=== PATIENT | female | born 1935 | race Caucasian/White ===

== ENCOUNTER 2017-04-12 10:30 | Inpatient (IN) | payer MEDICARE, OTHER, MEDICAID ==
[2017-04-23] MEDS ORDERED: Morphine 2 MG/ML Syringe IVPUSH PRN (06:42)
[2017-04-23] MEDS ORDERED: Naloxone 0.4 MG/ML SDV IVPUSH PRN (06:42)
[2017-04-23] MEDS ORDERED: Ondansetron 4 MG/2 ML SDV IVPUSH PRN ×2 (06:42→10:46)
[2017-04-23] MEDS ORDERED: Bisacodyl 5 MG Tab PO PRN (06:42)
[2017-04-23] MEDS ORDERED: Sennosides 8.6 MG Tab PO PRN (06:42)
[2017-04-23] MEDS ORDERED: Vancomycin 1 GM SDV ONE (06:45)
[2017-04-23] MEDS ORDERED: Lactated Ringers 1,000 ML IV SCH (07:00)
[2017-04-23] MEDS ORDERED: Sodium Chloride 0.9% 10 ML Syringe FLUSH PRN (07:00)
[2017-04-23] MEDS ORDERED: Lidocaine 1%/Sod Bicarbonate in NS 8.4% 1 ML Syringe IDERM PRN (07:00)
--- NOTE | 2017-04-23 07:10 | PCM.PREANE ---
Preanesthetic Assessment - Procedure Proposed Procedure: right reverse total shoulder arthroplasty - Anesthesia/Transfusion/Family Hx Anesthesia History: Prior Anesthesia Without Reaction Type of Anesthesia Reaction: Excessive Nausea/Vomiting Family History of Anesthesia Reaction: No Transfusion History: Prior Transfusion Without Reaction Intubation History: Unknown Additional History: Rheumatoid arthritis - Review of Systems General: No Symptoms Pulmonary: No Symptoms Cardiovascular: Other (pacemaker, htn, HLD, carotid stenosis with CEA to right side in 2016) Gastrointestinal: Other (occ GERD diet dependernt ) Neurological: Numbness (occ left arm from prev stroke ), Weakness (left sided from hx of stroke ) Other: Reports: Easy Bruising, Thyroid Problems - Physical Assessment NPO Status Date: 04/22/17 NPO Status Time: 18:30 Pulse: 59 O2 Sat by Pulse Oximetry: 95 Respiratory Rate: 16 Blood Pressure: 178/61 Temperature: 36.6 C Height: 1.55 m Weight: 87.543 kg ASA Class: 2 Mental Status: Alert & Oriented x3 Airway Class: Mallampati = 1 Dentition: Reports: Partial (bottom ), Missing Tooth/Teeth (multiple missing ) Thyro-Mental Finger Breadths: 3 Mouth Opening Finger Breadths: 3 ROM/Head Extension: Full Lungs: Clear to Auscultation, Normal Respiratory Effort Cardiovascular: Regular Rate, Regular Rhythm - Lab Values: Laboratory Last Values MRSA (PCR) Negative 03/28/17 14:35 - Allergies Allergies/Adverse Reactions: Allergies Allergy/AdvReac Type Severity Reaction Status Date / Time No Known Allergies Allergy Verified 04/20/17 12:45 - Blood Blood Available: No Product(s) Available: None - Anesthesia Plan Pre-Op Medication Ordered: None - Acknowledgements Anesthesia Type Planned: General Anesthesia, Regional Block (right interscalene ) Pt an Appropriate Candidate for the Planned Anesthesia: Yes Alternatives and Risks of Anesthesia Discussed w Pt/Guardian: Yes Pt/Guardian Understands and Agrees with Anesthesia Plan: Yes PreAnesthesia Questionnaire HEENT History: Reports: Glaucoma, Macular Degeneration Other HEENT History: Ringing to ears frequently, sore throat, lower partial, wears glasses, impacted cerumen Cardiovascular History: Reports: Blood Clots/VTE/DVT, CAD, High Cholesterol, Hypertension, Pacemaker, Other (See Below) Respiratory History: Reports: Other (See Below) Other Respiratory History: cough, bronchitis, pharyngitis, pleural fluid removal Gastrointestinal History: Reports: GERD, Other (See Below) Other Gastrointestinal History: Barrettes esophagus, colon surgery Genitourinary History: Reports: Chronic Renal Insuffiency [employer]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: Musculoskeletal History: Reports: Arthritis Neurological History: Reports: CVA Psychiatric History: Reports: None Endocrine/Metabolic History: Reports: Hypothyroidism Hematologic History: Reports: None Immunologic History: Reports: None Oncologic (Cancer) History: Reports: Colon Dermatologic History: Reports: Other (See Below) Other Dermatologic History: candidiasis, seborrheic keratosis - Past Surgical History Head Surgeries/Procedures: Reports: None HEENT Surgical History: Reports: Cataract Surgery Cardiovascular Surgical History: Reports: Pacer Respiratory Surgical History: Reports: None GI Surgical History: Reports: Colonoscopy Female Surgical History: Reports: Tubal Ligation Male Surgical History: Reports: None Endocrine Surgical History: Reports: None Neurological Surgical History: Reports: Other (See Below) Other Neurological Surgeries/Procedures: low back surgery Musculoskeletal Surgical History: Reports: Other (See Below), Shoulder Surgery Other Musculoskeletal Surgeries/Procedures:: L rotator cuff surgery, Back surgery to repair ruptured discs Oncologic Surgical History: Reports: None - SUBSTANCE USE Smoking Status *Q: Never Smoker Tobacco Use Within Last Twelve Months: No Second Hand Smoke Exposure: No Recreational Drug Use History: No - HOME MEDS Home Medications: Home Meds Cholecalciferol (Vitamin D3) [Vitamin D3] 1,000 unit PO DAILY 02/03/16 [History] Cyanocobalamin (Vitamin B-12) [B-12] 1,000 mcg PO DAILY 02/03/16 [History] Latanoprost [Xalatan 0.005% Ophth Soln] 1 drop EYEBOTH BEDTIME 02/03/16 [History ] Losartan [Cozaar] 50 mg PO BID 02/03/16 [History] Methotrexate 7 tab PO WEEKLY 02/03/16 [History] Metoprolol Succinate 50 mg PO TID 02/03/16 [History] Omeprazole 20 mg PO DAILY 02/03/16 [History] Prednisone [IJD: Prednisone] 10 mg PO SADLER 02/03/16 [History] Simvastatin [Zocor] 40 mg PO BEDTIME 02/03/16 [History] sulfaSALAzine 1,000 mg PO BID 02/03/16 [History] Aspirin 81 mg PO DAILY 04/20/17 [History] Calcium Carbonate/Vitamin D3 [Calcium 600-Vit D3 400 Tablet] 1 tab PO DAILY 04/08 [History] Fish Oil/DHA/EPA [Fish Oil 1,200 MG] 1,200 mg PO DAILY 04/20/17 [History] Folic Acid 3 mg PO DAILY 04/20/17 [History] Levothyroxine [Synthroid] 88 mcg PO DAILY 04/20/17 [History] Lutein/Minerals/Vit A,C & E [Ocuvite] 1 tab PO DAILY 04/20/17 [History] Multivitamin [Daily Multiple Vitamin] 1 tab PO DAILY 04/20/17 [History] Nystatin 1 dose .ROUTE TID PRN 04/20/17 [History] - CURRENT (IN HOUSE) MEDS Current Meds: Current Medications Hydrocodone Bitart/Acetaminophen (Buford 325-5 Mg) 1 - 2 tab PO Q4H PRN PRN Reason: Pain Bisacodyl (Dulcolax) 5 mg PO DAILY PRN PRN Reason: Constipation Docusate Sodium (Colace) 100 mg PO BID LEEANN Famotidine (Pepcid) 20 mg PO Q12H LEEANN Lactated Ringer's (Ringers, Lactated) 1,000 mls @ 125 mls/hr IV ASDIRECTED LEEANN Cefazolin Sodium/Dextrose 2 gm (/ Premix) 50 mls @ 100 mls/hr IV Q8H [facility] Stop: 04/23/17 23:14 Lidocaine/Sodium Bicarbonate (Buffered Lidocaine 1% In Ns 8.4%) 0.25 ml IDERM ONETIME PRN PRN Reason: Prior to IV Start Morphine Sulfate (Morphine) 2 mg IVPUSH Q2H PRN PRN Reason: Breakthrough Pain Naloxone HCl (Narcan) 0.1 mg IVPUSH Q5M PRN PRN Reason: Oversedation Ondansetron HCl (Zofran) 4 mg IVPUSH Q6H PRN PRN Reason: Nausea/Vomiting Senna (Senna) 8.6 mg PO BID PRN PRN Reason: Constipation Sodium Chloride (Saline Flush) 10 ml FLUSH ASDIRECTED PRN PRN Reason: Keep Vein Open Discontinued Medications Bupivacaine HCl (Marcaine 0.25%) Confirm Administered Dose 30 ml .ROUTE .STK- MED ONE Stop: 04/23/17 06:46 Iodine (Iodine 2% Mild Tincture) Confirm Administered Dose 30 ml .ROUTE .STK- MED ONE Stop: 04/23/17 06:46 Tranexamic Acid (Cyklokapron) Confirm Administered Dose 1,000 mg .ROUTE .STK- MED ONE Stop: 04/23/17 06:46 Vancomycin HCl (Vancomycin) Confirm Administered Dose 1 gm .ROUTE .STK-MED ONE Stop: 04/23/17 06:46
[2017-04-23] MEDS ORDERED: Ropivacaine 0.5% 5 MG/ML 30 ML SDV ONE (07:13)
[2017-04-23] MEDS ORDERED: EPINEPHrine 1 MG/ML SDV ONE (07:13)
[2017-04-23] MEDS ORDERED: fentaNYL 100 MCG/2 ML SDV ONE ×4 (07:43→12:51)
[2017-04-23] MEDS ORDERED: Lidocaine 1% 2 ML ONE (07:43)
[2017-04-23] MEDS ORDERED: Ondansetron 4 MG/2 ML SDV ONE (07:45)
[2017-04-23] MEDS ORDERED: Propofol 200 MG/20 ML SDV ONE (07:45)
[2017-04-23] MEDS ORDERED: Dexamethasone 4 MG/ML SDV ONE (07:46)
[2017-04-23] MEDS ORDERED: ceFAZolin 1 GM Vial ONE ×2 (09:17→10:10)
[2017-04-23] MEDS: Iodine/Sodium Iodide 2% Tincture 30 ML Bottle ONE ×2 (10:02→10:04)
[2017-04-23] MEDS: ceFAZolin 1 GM Vial ONE ×2 (10:04→10:05)
[2017-04-23] MEDS: Bupivacaine 0.25% 30 ML SDV ONE ×2 (10:05→10:07)
[2017-04-23] MEDS ORDERED: ePHEDrine 50 MG/ML SDV ONE (10:12)
[2017-04-23] MEDS ORDERED: diphenhydrAMINE 50 MG/ML SDV IVPUSH PRN (10:46)
[2017-04-23] MEDS ORDERED: fentaNYL 100 MCG/2 ML SDV IVPUSH PRN (10:46)
[2017-04-23] MEDS ORDERED: Meperidine PF 50 MG/ML Syringe IVPUSH PRN (10:46)
--- NOTE | 2017-04-23 10:46 | PCM.POSTAN ---
POST ANESTHESIA ASSESSMENT - MENTAL STATUS Mental Status: Alert, Oriented - VITAL SIGNS Pulse Rate: 67 SaO2: 93 Resp Rate: 15 Blood Pressure: 155/68 Temperature: 35.8 C - RESPIRATORY Respiratory Status: Respiratory Rate WNL, Airway Patent, O2 Saturation Stable, Supplemental Oxygen - CARDIOVASCULAR CV Status: Pulse Rate WNL, Blood Pressure Stable - GASTROINTESTINAL GI Status: No Symptoms - PAIN Pain Score: 0 - POST OP HYDRATION Hydration Status: Adequate & Stable
--- NOTE | 2017-04-23 11:21 | CR ---
Right shoulder: Three views of the right shoulder obtained utilizing C-arm device in the operating room. Study shows placement of a reverse shoulder prosthesis. Fluoroscopy time given as 2.9 seconds. Impression: 1. Operative study showing placement of right shoulder prosthesis. Diagnostic code #2
--- NOTE | 2017-04-23 11:47 | CR ---
Right shoulder: Supine portable view of the right shoulder was obtained. Comparison: Previous right shoulder exam of 05/24/16. Right shoulder prosthesis is seen. Components are aligned. Underlying bony structures are osteopenic but appear intact. Impression: 1. Satisfactory postoperative radiographic appearance of recently placed right shoulder prosthesis. Diagnostic code #2
[2017-04-23] MEDS ORDERED: NYSTATIN PRN (11:59)
--- NOTE | 2017-04-23 12:47 | PCM.CONS ---
H&P History of Present Illness - General Date of Service: 04/23/17 Admit Problem/Dx: Admission Diagnosis/Problem Admission Diagnosis/Problem Osteoarthritis of shoulder Source of Information: Patient, Provider, RN, RN Notes Reviewed, Other ( surgical notes ) - History of Present Illness Initial Comments - Free Text/Narative: Rhiannon Fuentes is a 81 yo female patient of Dr. Morataya who is post-operative day 0 of right reverse total shoulder. Hospital medicine was consulted for post- operative medical care. At this time she is resting comfortably in bed. Pain is controlled. She denies any chest pain, shortness of breath, palpitations, nausea, or vomiting. She carries a history of: Macular degeneration, glaucoma, blood clots, CAD, HLD, HTN, pacemaker, GERD, Brooks's esophagus, CK 80 stage III, arthritis, CVA, hypothyroidism, colon cancer. She was never a smoker. She is a full code. Her primary care provider is Karen Cortez PA-C at [facility]. Right Shoulder Pain Score (Numeric/FACES): 4 - Related Data Allergies/Adverse Reactions: Allergies Allergy/AdvReac Type Severity Reaction Status Date / Time No Known Allergies Allergy Verified 04/20/17 12:45 Home Medications: Home Meds Cholecalciferol (Vitamin D3) [Vitamin D3] 1,000 unit PO DAILY 02/03/16 [History] Cyanocobalamin (Vitamin B-12) [B-12] 1,000 mcg PO DAILY 02/03/16 [History] Latanoprost [Xalatan 0.005% Ophth Soln] 1 drop EYEBOTH BEDTIME 02/03/16 [History ] Losartan [Cozaar] 50 mg PO BID 02/03/16 [History] Methotrexate 7 tab PO WEEKLY 02/03/16 [History] Metoprolol Succinate 50 mg PO TID 02/03/16 [History] Omeprazole 20 mg PO DAILY 02/03/16 [History] Prednisone [IJD: Prednisone] 10 mg PO SADLER 02/03/16 [History] Simvastatin [Zocor] 40 mg PO BEDTIME 02/03/16 [History] sulfaSALAzine 1,000 mg PO BID 02/03/16 [History] Aspirin 81 mg PO DAILY 04/20/17 [History] Calcium Carbonate/Vitamin D3 [Calcium 600-Vit D3 400 Tablet] 1 tab PO DAILY 04/08 [History] Fish Oil/DHA/EPA [Fish Oil 1,200 MG] 1,200 mg PO DAILY 04/20/17 [History] Folic Acid 3 mg PO DAILY 04/20/17 [History] Levothyroxine [Synthroid] 88 mcg PO DAILY 04/20/17 [History] Lutein/Minerals/Vit A,C & E [Ocuvite] 1 tab PO DAILY 04/20/17 [History] Multivitamin [Daily Multiple Vitamin] 1 tab PO DAILY 04/20/17 [History] Nystatin 1 dose .ROUTE TID PRN 04/20/17 [History] Past Medical History HEENT History: Reports: Glaucoma, Macular Degeneration Other HEENT History: Ringing to ears frequently, sore throat, lower partial, wears glasses, impacted cerumen Cardiovascular History: Reports: Blood Clots/VTE/DVT, CAD, High Cholesterol, Hypertension, Pacemaker, Other (See Below) Respiratory History: Reports: Other (See Below) Other Respiratory History: cough, bronchitis, pharyngitis, pleural fluid removal Gastrointestinal History: Reports: GERD, Other (See Below) Other Gastrointestinal History: Barrettes esophagus, colon surgery Genitourinary History: Reports: Chronic Renal Insuffiency 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: Musculoskeletal History: Reports: Arthritis Neurological History: Reports: CVA Psychiatric History: Reports: None Endocrine/Metabolic History: Reports: Hypothyroidism Hematologic History: Reports: None Immunologic History: Reports: None Oncologic (Cancer) History: Reports: Colon Dermatologic History: Reports: Other (See Below) Other Dermatologic History: candidiasis, seborrheic keratosis - Past Surgical History Head Surgeries/Procedures: Reports: None HEENT Surgical History: Reports: Cataract Surgery Cardiovascular Surgical History: Reports: Pacer Respiratory Surgical History: Reports: None GI Surgical History: Reports: Colonoscopy Female Surgical History: Reports: Tubal Ligation Male Surgical History: Reports: None Endocrine Surgical History: Reports: None Neurological Surgical History: Reports: Other (See Below) Other Neurological Surgeries/Procedures: low back surgery Musculoskeletal Surgical History: Reports: Other (See Below), Shoulder Surgery Other Musculoskeletal Surgeries/Procedures:: L rotator cuff surgery, Back surgery to repair ruptured discs Oncologic Surgical History: Reports: None Social & Family History - Family History Family Medical History: Noncontributory - Tobacco Use Smoking Status *Q: Never Smoker Second Hand Smoke Exposure: No - Caffeine Use Caffeine Use: Reports: Coffee - Recreational Drug Use Recreational Drug Use: No H&P Review of Systems - Review of Systems: Review Of Systems: See Below General: Reports: No Symptoms HEENT: Reports: No Symptoms Pulmonary: Reports: No Symptoms Cardiovascular: Reports: No Symptoms Gastrointestinal: Reports: No Symptoms Genitourinary: Reports: No Symptoms Musculoskeletal: Reports: Joint Pain Skin: Reports: No Symptoms Psychiatric: Reports: No Symptoms Neurological: Reports: No Symptoms Hematologic/Lymphatic: Reports: No Symptoms Immunologic: Reports: No Symptoms Exam - Exam Exam: See Below - Vital Signs Vital Signs: Last Vital Signs Temp 97.4 F 04/23/17 11:35 Pulse 63 04/23/17 11:20 Resp 12 04/23/17 11:35 BP 163/64 H 04/23/17 11:35 Pulse Ox 95 04/23/17 11:35 Weight: 192 lb - Exam Quality Assessment: Supplemental Oxygen, Urinary Catheter, DVT Prophylaxis General: Alert, Oriented, Cooperative. No: Mild Distress HEENT: PERRLA, Hearing Intact, Mucosa Moist & Mercer, Nares Patent, Normal Nasal Septum, Posterior Pharynx Clear, Conjunctiva Clear, EOMI, EACs Clear, TMs Clear Neck: Supple, Trachea Midline Lungs: Clear to Auscultation, Normal Respiratory Effort Cardiovascular: Regular Rate, Regular Rhythm GI/Abdominal Exam: Normal Bowel Sounds, Soft, Non-Tender, No Organomegaly, No Distention, No Abnormal Bruit, No Mass, Pelvis Stable (Female) Exam: Deferred Rectal (Female) Exam: Deferred Back Exam: Normal Inspection Extremities: No Pedal Edema, Normal Capillary Refill, Arm Pain (shoulder), Limited Range of Motion, Other (Shoulder immobilizer in place on right arm. FRANTZ bandage in place. Bandage is dry and intact. Cooling pack in place. ) Peripheral Pulses: 2+: Radial (L), Posterior Tibial (L), Posterior Tibial (R), Dorsalis Pedis (L), Dorsalis Pedis (R) Skin: Warm, Dry, Intact Neurological: Cranial Nerves Intact (grossly) Neuro Extensive - Mental Status: Alert, Oriented x3, Normal Mood/Affect, Normal Cognition Psychiatric: Alert, Normal Affect, Normal Mood Consult PN Assessment/Plan POD#: 0 Procedures: Procedures ASSAY OF NATRIURETIC PEPTIDE (02/03/16) ASSAY OF PREALBUMIN (03/30/17) ASSAY THYROID STIM HORMONE (11/02/16) C-REACTIVE PROTEIN (05/25/16) COMPLETE CBC AUTOMATED (02/03/16) COMPLETE CBC W/AUTO DIFF WBC (03/24/17) COMPREHEN METABOLIC PANEL (03/24/17) CULTURE SCREEN ONLY (03/24/16) DXA BONE DENSITY AXIAL (04/03/17) ELECTROCARDIOGRAM TRACING (02/03/16) EMERGENCY DEPT VISIT (02/03/16) EMERGENCY DEPT VISIT (01/17/14) EXTREMITY STUDY (02/03/16) GAIT TRAINING THERAPY (02/03/16) LIPID PANEL (03/24/17) MANUAL THERAPY 1/> REGIONS (07/12/16) METABOLIC PANEL TOTAL CA (02/03/16) OT EVALUATION (02/03/16) PROTHROMBIN TIME (03/30/17) PT EVAL MOD COMPLEX 30 MIN (06/14/16) PT EVALUATION (02/03/16) ROUTINE VENIPUNCTURE (03/30/17) STREP A AG IA (03/24/16) THER/PROPH/DIAG IV INF INIT (02/03/16) THERAPEUTIC EXERCISES (08/02/16) THROMBOPLASTIN TIME PARTIAL (02/03/16) TISSUE EXAM BY PATHOLOGIST (01/07/15) ULTRASOUND THERAPY (07/12/16) URINALYSIS AUTO W/SCOPE (02/03/16) URINE BACTERIA CULTURE (01/17/14) X-RAY EXAM CHEST 2 VIEWS (03/30/17) X-RAY EXAM OF SHOULDER (05/24/16) (1) S/p reverse total shoulder arthroplasty SNOMED Code(s): 171131421 Code(s): Z96.619 - PRESENCE OF UNSPECIFIED ARTIFICIAL SHOULDER JOINT Priority: High Current Visit: Yes Qualifiers: Laterality: right Qualified Code(s): Z96.611 - Presence of right artificial shoulder joint (2) Osteoarthritis SNOMED Code(s): 333247380 Code(s): M19.90 - UNSPECIFIED OSTEOARTHRITIS, UNSPECIFIED SITE Priority: High Current Visit: Yes Qualifiers: Osteoarthritis location: shoulder Osteoarthritis type: primary Laterality : right Qualified Code(s): M19.011 - Primary osteoarthritis, right shoulder (3) Cardiac pacemaker SNOMED Code(s): 134581309 Code(s): Z95.0 - PRESENCE OF CARDIAC PACEMAKER Priority: Medium Current Visit: Yes (4) HLD (hyperlipidemia) SNOMED Code(s): 59257513 Code(s): E78.5 - HYPERLIPIDEMIA, UNSPECIFIED Priority: Low Current Visit : No Qualifiers: Hyperlipidemia type: unspecified Qualified Code(s): E78.5 - Hyperlipidemia , unspecified (5) HTN (hypertension) SNOMED Code(s): 63857455 Code(s): I10 - ESSENTIAL (PRIMARY) HYPERTENSION Priority: Low Current Visit: No Qualifiers: Hypertension type: unspecified Qualified Code(s): I10 - Essential (primary ) hypertension (6) GERD (gastroesophageal reflux disease) SNOMED Code(s): 280053938 Code(s): K21.9 - GASTRO-ESOPHAGEAL REFLUX DISEASE WITHOUT ESOPHAGITIS Priority: Low Current Visit: No Qualifiers: Esophagitis presence: with esophagitis Qualified Code(s): K21.0 - Gastro- esophageal reflux disease with esophagitis (7) History of CVA (cerebrovascular accident) SNOMED Code(s): 944734233 Code(s): Z86.73 - PRSNL HX OF TIA (TIA), AND CEREB INFRC W/O RESID DEFICITS Priority: Low Current Visit: No (8) History of colon cancer SNOMED Code(s): 189312738 Code(s): Z85.038 - PERSONAL HISTORY OF MALIGNANT NEOPLASM OF LARGE INTESTINE Priority: Low Current Visit: No (9) Hx of blood clots SNOMED Code(s): 372030280 Code(s): Z86.718 - PERSONAL HISTORY OF OTHER VENOUS THROMBOSIS AND EMBOLISM Priority: Low Current Visit: No (10) Carotid artery disease SNOMED Code(s): 589265244 Code(s): I77.9 - DISORDER OF ARTERIES AND ARTERIOLES, UNSPECIFIED Priority : Low Current Visit: No Qualifiers: Laterality: unspecified laterality Qualified Code(s): I77.9 - Disorder of arteries and arterioles, unspecified (11) Hypothyroidism SNOMED Code(s): 02979163 Code(s): E03.9 - HYPOTHYROIDISM, UNSPECIFIED Priority: Low Current Visit : No Qualifiers: Hypothyroidism type: unspecified Qualified Code(s): E03.9 - Hypothyroidism , unspecified Problem List Initiated/Reviewed/Updated: Yes Plan: I/P: Acute: S/P right reverse total shoulder arthroplasty - post-operative day 0 -DVT prophylaxis and pain management per primary care team -PT/OT -IS/RT -Monitor oxygen saturation -Titrate oxygen as needed -Vital signs stable -Monitor labs Osteoarthritis of right shoulder -Pain management per primary care team Chronic: Glaucoma Macular degeneration Hx/of blood clots/VTE/DVT in left leg CAD HLD HTN GERD Barrettes esophagitis CKD stage 3 CVA Hypothyroidism Plan: CM for discharge planning - plan to discharge to SNF for rehab stay GI prophylaxis Home medications as indicated Other orders as listed above Routine AM labs She is a full code. Her PCP is Karen Cortez PA-C at [facility] Thank you for allowing us to participate in the care of this patient!! Requesting Provider: Dr. Morataya Date Consult Requested: 04/23/17 Reason for Consult: Post-operative medical management Patient History Reviewed: Yes Admission H&P Reviewed: Yes Time Spent (in minutes): 25
--- NOTE | 2017-04-23 14:47 | PCM.SN ---
- Free Text/Narrative Note: Right Interscalene nerve block Date: 04/23/2017 Time Out: 0756 Start: 755 Stop: 0804 Surgical Procedure: Right Reverse Total Shoulder arthroplasty Diagnosis: Right shoulder osteoarthritis Current Procedure: Right interscalene block under US guidance for postoperative pain control requested by Dr. Morataya. Patient chart reviewed, risk/benefits discussed with patient, consent obtained. Patient positioned supine, monitors/alarms on, oxygen placed via nasal cannula at 2 LPM. IV sedation administered: Fentanyl 100mcg IV Right shoulder prepped with chloraprep x1. Sterile drapes placed. Under US guidance right subclavian artery visualized along with the right brachial plexus. Plexus followed cephalad up to C6 cricoid level, and area localized with 2mls of 1% lidocaine. 22gauge 2 inch stimiplex needle inserted under US and guided to brachial plexus with 0.44mV with stimulation of biceps noted. Stimulation abolished at 0.2mVs. 1ml of Normal Saline injected with loss of stimulation up to 0.7mA. Incremental injection of 5mls with negative aspiration prior to each injection of 0.5% ropivacaine with 1:200,000 epinephrine. Total volume=30mls. Patient tolerated procedure well. Refer to nurses notes for vital signs. Bulmaro Cardenas CRNA in room for supervision. Cas Lopez CRNA
[2017-04-23] MEDS: Metoprolol Succinate 50 MG Tab.ER PO SCH ×2 (16:35→22:04)
[2017-04-23] MEDS: ceFAZolin 2 GM in Premix Bag 1 BAG IV SCH (16:39)
[2017-04-23] MEDS ORDERED: Famotidine 20 MG Tab PO SCH (21:00)
[2017-04-23] MEDS: Losartan 25 MG Tab PO SCH (22:03)
[2017-04-23] MEDS: Docusate Sodium 100 MG Cap PO SCH (22:03)
[2017-04-23] MEDS: sulfaSALAzine 500 MG Tab PO SCH (22:04)
[2017-04-23] MEDS: Acetaminophen/HYDROcodone 325-5 MG Tab PO PRN (22:05)
[2017-04-23] MEDS: Simvastatin 40 MG Tab PO SCH (22:05)
[2017-04-23] MEDS: Latanoprost 0.005% Ophth Soln 2.5 ML Bottle EYEBOTH SCH (22:07)
[2017-04-24] MEDS: ceFAZolin 2 GM in Premix Bag 1 BAG IV SCH ×2 (01:47→09:49)
--- NOTE | 2017-04-24 06:39 | PCM.CONSN ---
- General Info Date of Service: 04/24/17 Admission Dx/Problem (Free Text): Admission Diagnosis/Problem Admission Diagnosis/Problem Osteoarthritis of shoulder Subjective Update: In to see Rhiannon. She is doing quite well. She is sitting in bed. PT/OT has been working with her. She did receive a shower today. Pain 4/10 No complaints or concerns. She has been urinating. Will be discharged in a few days to SNF for rehabilitation stay. Functional Status: Reports: Pain Controlled, Tolerating Diet, Ambulating, Urinating, Incentive Spirometry. Denies: New Symptoms - Review of Systems General: Reports: No Symptoms. Denies: Weakness HEENT: Reports: No Symptoms Pulmonary: Reports: No Symptoms. Denies: Shortness of Breath, Cough, Sputum, Wheezing Cardiovascular: Reports: No Symptoms. Denies: Chest Pain, Palpitations, Dyspnea on Exertion Gastrointestinal: Reports: No Symptoms. Denies: Abdominal Pain, Constipation, Diarrhea, Nausea, Vomiting Genitourinary: Reports: No Symptoms. Denies: Dysuria, Frequency, Burning, Pain Musculoskeletal: Reports: Shoulder Pain Skin: Reports: No Symptoms Neurological: Reports: No Symptoms Psychiatric: Reports: No Symptoms - Patient Data Vitals - Most Recent: Last Vital Signs Temp 99.0 F 04/24/17 02:47 Pulse 61 04/24/17 02:46 Resp 17 04/24/17 02:46 BP 127/34 L 04/24/17 02:47 Pulse Ox 90 L 04/24/17 02:46 Weight - Most Recent: 192 lb I&O - Last 24 Hours: Intake & Output 04/23/17 04/23/17 04/24/17 14:59 22:59 06:59 Intake Total 200 850 Output Total 350 Balance 200 500 Med Orders - Current: Current Medications Hydrocodone Bitart/Acetaminophen ([place] 325-5 Mg) 1 - 2 tab PO Q4H PRN PRN Reason: Pain Last Admin: 04/23/17 22:05 Dose: 2 tab Aspirin (Aspirin) 81 mg PO DAILY LEEANN Bisacodyl (Dulcolax) 5 mg PO DAILY PRN PRN Reason: Constipation Calcium Carbonate (Calcium Carbonate/Vitamin D 1500 Mg-200 Unit) 1 tab PO DAILY LEEANN Cholecalciferol (Vitamin D3) 1,000 units PO DAILY LEEANN Cyanocobalamin (Vitamin B12) 1,000 mcg PO DAILY LEEANN Docusate Sodium (Colace) 100 mg PO BID [facility] Last Admin: 04/23/17 22:03 Dose: 100 mg Enoxaparin Sodium (Lovenox) 40 mg SUBCUT DAILY [facility] Famotidine (Pepcid) 20 mg PO Q12H [facility] Last Admin: 04/23/17 22:04 Dose: 20 mg Folic Acid (Folic Acid) 3 mg PO DAILY [facility] Cefazolin Sodium/Dextrose 2 gm (/ Premix) 50 mls @ 100 mls/hr IV Q8H [facility] Stop: 04/24/17 09:59 Last Admin: 04/24/17 01:47 Dose: 100 mls/hr Latanoprost (Xalatan 0.005% Ophth Soln) 0 ml EYEBOTH BEDTIME [facility] Last Admin: 04/23/17 22:07 Dose: 1 drop Levothyroxine Sodium (Synthroid) 88 mcg PO ACBREAKFAST [facility] Losartan Potassium (Cozaar) 50 mg PO BID [facility] Last Admin: 04/23/17 22:03 Dose: 50 mg Metoprolol Succinate (Toprol Xl) 50 mg PO TID [facility] Last Admin: 04/23/17 22:04 Dose: 50 mg Morphine Sulfate (Morphine) 2 mg IVPUSH Q2H PRN PRN Reason: Breakthrough Pain Multivitamins (Thera) 1 each PO DAILY [facility] Ondansetron HCl (Zofran) 4 mg IVPUSH Q6H PRN PRN Reason: Nausea/Vomiting Senna (Senna) 8.6 mg PO BID PRN PRN Reason: Constipation Simvastatin (Zocor) 40 mg PO BEDTIME [facility] Last Admin: 04/23/17 22:05 Dose: 40 mg Sodium Chloride (Saline Flush) 10 ml FLUSH ASDIRECTED PRN PRN Reason: Keep Vein Open Sulfasalazine (Sulfasalazine) 1,000 mg PO BID [facility] Last Admin: 04/23/17 22:04 Dose: 1,000 mg Discontinued Medications Bupivacaine HCl (Marcaine 0.25%) Confirm Administered Dose 30 ml .ROUTE .STK- MED ONE Stop: 04/23/17 06:46 Last Admin: 04/23/17 10:05 Dose: 30 ml Cefazolin Sodium (Ancef) Confirm Administered Dose 2 gm .ROUTE .STK-MED ONE Stop: 04/23/17 09:18 Cefazolin Sodium (Ancef) Confirm Administered Dose 2 gm .ROUTE .STK-MED ONE Stop: 04/23/17 10:09 Last Admin: 04/23/17 10:04 Dose: 2 gm Cefazolin Sodium (Ancef) Confirm Administered Dose 2 gm .ROUTE .STK-MED ONE Stop: 04/23/17 10:11 Dexamethasone (Dexamethasone) Confirm Administered Dose 4 mg .ROUTE .ST-MED ONE Stop: 04/23/17 07:47 Diphenhydramine HCl (Benadryl) 25 mg IVPUSH Q6H PRN PRN Reason: Pruritis Stop: 04/23/17 16:00 Ephedrine Sulfate (Ephedrine Sulfate) Confirm Administered Dose 50 mg .ROUTE .ST-MED ONE Stop: 04/23/17 10:13 Epinephrine HCl (Adrenalin) Confirm Administered Dose 1 mg .ROUTE .ST-MED ONE Stop: 04/23/17 07:14 Fentanyl (Sublimaze) Confirm Administered Dose 100 mcg .ROUTE .ST-MED ONE Stop: 04/23/17 07:44 Fentanyl (Sublimaze) Confirm Administered Dose 100 mcg .ROUTE .ST-MED ONE Stop: 04/23/17 09:06 Fentanyl (Sublimaze) 50 mcg IVPUSH Q5M PRN PRN Reason: Pain Stop: 04/23/17 10:47 Fentanyl (Sublimaze) Confirm Administered Dose 100 mcg .ROUTE .ST-MED ONE Stop: 04/23/17 12:09 Fentanyl (Sublimaze) Confirm Administered Dose 100 mcg .ROUTE .ST-MED ONE Stop: 04/23/17 12:52 Lactated Ringer's (Ringers, Lactated) 1,000 mls @ 125 mls/hr IV ASDIRECTED LEEANN Lidocaine HCl (Xylocaine-Mpf 1%) Confirm Administered Dose 2 mls @ as directed .ROUTE .ST-MED ONE Stop: 04/23/17 07:44 Iodine (Iodine 2% Mild Tincture) Confirm Administered Dose 30 ml .ROUTE .STK- MED ONE Stop: 04/23/17 06:46 Last Admin: 04/23/17 10:02 Dose: 18 ml Lidocaine/Sodium Bicarbonate (Buffered Lidocaine 1% In Ns 8.4%) 0.25 ml IDERM ONETIME PRN PRN Reason: Prior to IV Start Meperidine HCl (Demerol) 12.5 mg IVPUSH ONETIME PRN PRN Reason: Shivering Stop: 04/23/17 14:00 Naloxone HCl (Narcan) 0.1 mg IVPUSH Q5M PRN PRN Reason: Oversedation Non-Formulary Medication (Nystatin) 1 dose .ROUTE TID PRN PRN Reason: asdirected Ondansetron HCl (Zofran) Confirm Administered Dose 4 mg .ROUTE .STK-MED ONE Stop: 04/23/17 07:46 Ondansetron HCl (Zofran) 4 mg IVPUSH ONETIME PRN PRN Reason: Nausea/Vomiting Stop: 04/23/17 16:00 Propofol (Diprivan 20 Ml) Confirm Administered Dose 200 mg .ROUTE .STK-MED ONE Stop: 04/23/17 07:46 Ropivacaine (Naropin 0.5%) Confirm Administered Dose 30 ml .ROUTE .STK-MED ONE Stop: 04/23/17 07:14 Tranexamic Acid (Cyklokapron) Confirm Administered Dose 1,000 mg .ROUTE .STK- MED ONE Stop: 04/23/17 06:46 Last Admin: 04/23/17 10:07 Dose: 1,000 mg Vancomycin HCl (Vancomycin) Confirm Administered Dose 1 gm .ROUTE .STK-MED ONE Stop: 04/23/17 06:46 Last Admin: 04/23/17 10:07 Dose: 1 gm - Exam Quality Assessment: Supplemental Oxygen, DVT Prophylaxis General: Alert, Oriented, Cooperative, No Acute Distress HEENT: Pupils Equal, Pupils Reactive, EOMI, Mucous Membr. Moist/[place] Neck: Supple, Trachea Midline, No JVD Lungs: Clear to Auscultation, Normal Respiratory Effort Cardiovascular: Regular Rate, Regular Rhythm GI/Abdominal Exam: Normal Bowel Sounds, Soft, Non-Tender, No Organomegaly, No Distention, No Abnormal Bruit, No Mass, Pelvis Stable (Female) Exam: Deferred Extremities: Normal Inspection, Normal Range of Motion, Non-Tender, No Pedal Edema, Normal Capillary Refill Peripheral Pulses: 1+: Posterior Tibial (L), Posterior Tibial (R), Dorsalis Pedis (L), Dorsalis Pedis (R), 2+: Radial (L) Skin: Warm, Dry, Intact Wound/Incisions: Dressing Dry and Intact, No Drainage Neurological: No New Focal Deficit Psy/Mental Status: Alert, Normal Affect, Normal Mood Consult PN Assessment/Plan POD#: 1 Procedures: Procedures ASSAY OF NATRIURETIC PEPTIDE (02/03/16) ASSAY OF PREALBUMIN (03/30/17) ASSAY THYROID STIM HORMONE (11/02/16) C-REACTIVE PROTEIN (05/25/16) COMPLETE CBC AUTOMATED (02/03/16) COMPLETE CBC W/AUTO DIFF WBC (03/24/17) COMPREHEN METABOLIC PANEL (03/24/17) CULTURE SCREEN ONLY (03/24/16) DXA BONE DENSITY AXIAL (04/03/17) ELECTROCARDIOGRAM TRACING (02/03/16) EMERGENCY DEPT VISIT (02/03/16) EMERGENCY DEPT VISIT (01/17/14) EXTREMITY STUDY (02/03/16) GAIT TRAINING THERAPY (02/03/16) LIPID PANEL (03/24/17) MANUAL THERAPY 1/> REGIONS (07/12/16) METABOLIC PANEL TOTAL CA (02/03/16) OT EVALUATION (02/03/16) PROTHROMBIN TIME (03/30/17) PT EVAL MOD COMPLEX 30 MIN (06/14/16) PT EVALUATION (02/03/16) ROUTINE VENIPUNCTURE (03/30/17) STREP A AG IA (03/24/16) THER/PROPH/DIAG IV INF INIT (02/03/16) THERAPEUTIC EXERCISES (08/02/16) THROMBOPLASTIN TIME PARTIAL (02/03/16) TISSUE EXAM BY PATHOLOGIST (01/07/15) ULTRASOUND THERAPY (07/12/16) URINALYSIS AUTO W/SCOPE (02/03/16) URINE BACTERIA CULTURE (01/17/14) X-RAY EXAM CHEST 2 VIEWS (03/30/17) X-RAY EXAM OF SHOULDER (05/24/16) (1) S/p reverse total shoulder arthroplasty SNOMED Code(s): 207711493 Code(s): Z96.619 - PRESENCE OF UNSPECIFIED ARTIFICIAL SHOULDER JOINT Priority: High Current Visit: Yes Qualifiers: Laterality: right Qualified Code(s): Z96.611 - Presence of right artificial shoulder joint (2) Osteoarthritis SNOMED Code(s): 208684722 Code(s): M19.90 - UNSPECIFIED OSTEOARTHRITIS, UNSPECIFIED SITE Priority: High Current Visit: Yes Qualifiers: Osteoarthritis location: shoulder Osteoarthritis type: primary Laterality : right Qualified Code(s): M19.011 - Primary osteoarthritis, right shoulder (3) Cardiac pacemaker SNOMED Code(s): 527659538 Code(s): Z95.0 - PRESENCE OF CARDIAC PACEMAKER Priority: Medium Current Visit: Yes (4) HLD (hyperlipidemia) SNOMED Code(s): 36203722 Code(s): E78.5 - HYPERLIPIDEMIA, UNSPECIFIED Priority: Low Current Visit : No Qualifiers: Hyperlipidemia type: unspecified Qualified Code(s): E78.5 - Hyperlipidemia , unspecified (5) HTN (hypertension) SNOMED Code(s): 70710101 Code(s): I10 - ESSENTIAL (PRIMARY) HYPERTENSION Priority: Low Current Visit: No Qualifiers: Hypertension type: unspecified Qualified Code(s): I10 - Essential (primary ) hypertension (6) GERD (gastroesophageal reflux disease) SNOMED Code(s): 244003813 Code(s): K21.9 - GASTRO-ESOPHAGEAL REFLUX DISEASE WITHOUT ESOPHAGITIS Priority: Low Current Visit: No Qualifiers: Esophagitis presence: with esophagitis Qualified Code(s): K21.0 - Gastro- esophageal reflux disease with esophagitis (7) History of CVA (cerebrovascular accident) SNOMED Code(s): 556014262 Code(s): Z86.73 - PRSNL HX OF TIA (TIA), AND CEREB INFRC W/O RESID DEFICITS Priority: Low Current Visit: No (8) History of colon cancer SNOMED Code(s): 246656602 Code(s): Z85.038 - PERSONAL HISTORY OF MALIGNANT NEOPLASM OF LARGE INTESTINE Priority: Low Current Visit: No (9) Hx of blood clots SNOMED Code(s): 787474446 Code(s): Z86.718 - PERSONAL HISTORY OF OTHER VENOUS THROMBOSIS AND EMBOLISM Priority: Low Current Visit: No (10) Carotid artery disease SNOMED Code(s): 303985891 Code(s): I77.9 - DISORDER OF ARTERIES AND ARTERIOLES, UNSPECIFIED Priority : Low Current Visit: No Qualifiers: Laterality: unspecified laterality Qualified Code(s): I77.9 - Disorder of arteries and arterioles, unspecified (11) Hypothyroidism SNOMED Code(s): 51711582 Code(s): E03.9 - HYPOTHYROIDISM, UNSPECIFIED Priority: Low Current Visit : No Qualifiers: Hypothyroidism type: unspecified Qualified Code(s): E03.9 - Hypothyroidism , unspecified Problem List Initiated/Reviewed/Updated: Yes Plan: I/P: Acute: S/P right reverse total shoulder arthroplasty - post-operative day 1 -DVT prophylaxis and pain management per primary care team -PT/OT -IS/RT -Monitor oxygen saturation -Titrate oxygen as needed - on 1L currently -Vital signs stable -Monitor labs -Hgb today 11.5 -eGFR 53, creatinine 1.0 Osteoarthritis of right shoulder -Pain management per primary care team Chronic: Glaucoma Macular degeneration Hx/of blood clots/VTE/DVT in left leg CAD HLD HTN GERD Barrettes esophagitis CKD stage 3 CVA Hypothyroidism Plan: CM for discharge planning - plan to discharge to SNF for rehab stay GI prophylaxis Home medications as indicated Other orders as listed above Routine AM labs She is a full code. Her PCP is Karen Cortez PA-C at [facility] Thank you for allowing us to participate in the care of this patient!!
[2017-04-24] MEDS: Levothyroxine 88 MCG Tab PO SCH (06:51)
[2017-04-24] MEDS: Acetaminophen/HYDROcodone 325-5 MG Tab PO PRN ×2 (06:51→19:27)
--- NOTE | 2017-04-24 08:35 | PCM.SURGPN ---
- General Info Date of Service: 04/24/17 POD#: 1 Functional Status: Reports: Pain Controlled, Tolerating Diet - Review of Systems Musculoskeletal: Reports: Other (The pt states her pain is controlled and she is getting used to using the LUE.) - Patient Data Vitals - Most Recent: Last Vital Signs Temp 99.0 F 04/24/17 02:47 Pulse 61 04/24/17 02:46 Resp 17 04/24/17 02:46 BP 127/34 L 04/24/17 02:47 Pulse Ox 90 L 04/24/17 02:46 Weight - Most Recent: 192 lb I&O - Last 24 Hours: Intake & Output 04/23/17 04/24/17 04/24/17 22:59 06:59 14:59 Intake Total 850 150 Output Total 350 400 Balance 500 -250 Lab Results Last 24 Hrs: Laboratory Results - last 24 hr 04/24/17 04/24/17 Range/Units 05:55 05:55 WBC 6.23 (3.98-10.04) K/mm3 RBC 3.94 L (3.98-5.22) M/mm3 Hgb 11.5 (11.2-15.7) gm/L Hct 35.3 (34.1-44.9) % MCV 89.6 (79.4-94.8) fl MCH 29.2 (25.6-32.2) pg MCHC 32.6 (32.2-35.5) g/dl RDW Std Deviation 49.8 H (36.4-46.3) fL Plt Count 136 L (182-369) K/mm3 MPV 12.0 (9.4-12.3) fl Sodium 139 (136-145) mEq/L Potassium 3.9 (3.5-5.1) mEq/L Chloride 108 H (98-107) mEq/L Carbon Dioxide 24 (21-32) mEq/L Anion Gap 10.9 (5-15) BUN 19 H (7-18) mg/dL Creatinine 1.0 (0.55-1.02) mg/dL Est Cr Clr Drug Dosing 32.73 mL/min Estimated GFR (MDRD) 53 (>60) mL/min BUN/Creatinine Ratio 19.0 H (14-18) Glucose 122 H (83-115) mg/dL Calcium 9.2 (8.5-10.1) mg/dL Total Bilirubin 0.6 (0.2-1.0) mg/dL AST 14 L (15-37) U/L ALT 11 L (14-59) U/L Alkaline Phosphatase 67 (46-116) U/L Total Protein 5.9 L (6.4-8.2) g/dl Albumin 2.9 L (3.4-5.0) g/dl Globulin 3.0 gm/dL Albumin/Globulin Ratio 1.0 (1-2) Med Orders - Current: Current Medications Hydrocodone Bitart/Acetaminophen ([place] 325-5 Mg) 1 - 2 tab PO Q4H PRN PRN Reason: Pain Last Admin: 04/24/17 06:51 Dose: 2 tab Aspirin (Aspirin) 81 mg PO DAILY [facility] Bisacodyl (Dulcolax) 5 mg PO DAILY PRN PRN Reason: Constipation Calcium Carbonate (Calcium Carbonate/Vitamin D 1500 Mg-200 Unit) 1 tab PO DAILY [facility] Cholecalciferol (Vitamin D3) 1,000 units PO DAILY [facility] Cyanocobalamin (Vitamin B12) 1,000 mcg PO DAILY [facility] Docusate Sodium (Colace) 100 mg PO BID [facility] Last Admin: 04/23/17 22:03 Dose: 100 mg Enoxaparin Sodium (Lovenox) 40 mg SUBCUT DAILY [facility] Famotidine (Pepcid) 20 mg PO DAILY [facility] Folic Acid (Folic Acid) 3 mg PO DAILY [facility] Cefazolin Sodium/Dextrose 2 gm (/ Premix) 50 mls @ 100 mls/hr IV Q8H [facility] Stop: 04/24/17 09:59 Last Admin: 04/24/17 01:47 Dose: 100 mls/hr Latanoprost (Xalatan 0.005% Ophth Soln) 0 ml EYEBOTH BEDTIME [facility] Last Admin: 04/23/17 22:07 Dose: 1 drop Levothyroxine Sodium (Synthroid) 88 mcg PO ACBREAKFAST [facility] Last Admin: 04/24/17 06:51 Dose: 88 mcg Losartan Potassium (Cozaar) 50 mg PO BID [facility] Last Admin: 04/23/17 22:03 Dose: 50 mg Metoprolol Succinate (Toprol Xl) 50 mg PO TID [facility] Last Admin: 04/23/17 22:04 Dose: 50 mg Morphine Sulfate (Morphine) 2 mg IVPUSH Q2H PRN PRN Reason: Breakthrough Pain Multivitamins (Thera) 1 each PO DAILY [facility] Ondansetron HCl (Zofran) 4 mg IVPUSH Q6H PRN PRN Reason: Nausea/Vomiting Senna (Senna) 8.6 mg PO BID PRN PRN Reason: Constipation Simvastatin (Zocor) 40 mg PO BEDTIME [facility] Last Admin: 04/23/17 22:05 Dose: 40 mg Sodium Chloride (Saline Flush) 10 ml FLUSH ASDIRECTED PRN PRN Reason: Keep Vein Open Sulfasalazine (Sulfasalazine) 1,000 mg PO BID [facility] Last Admin: 04/23/17 22:04 Dose: 1,000 mg Discontinued Medications Bupivacaine HCl (Marcaine 0.25%) Confirm Administered Dose 30 ml .ROUTE .STK- MED ONE Stop: 04/23/17 06:46 Last Admin: 04/23/17 10:05 Dose: 30 ml Cefazolin Sodium (Ancef) Confirm Administered Dose 2 gm .ROUTE .STK-MED ONE Stop: 04/23/17 09:18 Cefazolin Sodium (Ancef) Confirm Administered Dose 2 gm .ROUTE .STK-MED ONE Stop: 04/23/17 10:09 Last Admin: 04/23/17 10:04 Dose: 2 gm Cefazolin Sodium (Ancef) Confirm Administered Dose 2 gm .ROUTE .STK-MED ONE Stop: 04/23/17 10:11 Dexamethasone (Dexamethasone) Confirm Administered Dose 4 mg .ROUTE .STK-MED ONE Stop: 04/23/17 07:47 Diphenhydramine HCl (Benadryl) 25 mg IVPUSH Q6H PRN PRN Reason: Pruritis Stop: 04/23/17 16:00 Ephedrine Sulfate (Ephedrine Sulfate) Confirm Administered Dose 50 mg .ROUTE .STK-MED ONE Stop: 04/23/17 10:13 Epinephrine HCl (Adrenalin) Confirm Administered Dose 1 mg .ROUTE .STK-MED ONE Stop: 04/23/17 07:14 Famotidine (Pepcid) 20 mg PO Q12H [facility] Last Admin: 04/23/17 22:04 Dose: 20 mg Fentanyl (Sublimaze) Confirm Administered Dose 100 mcg .ROUTE .STK-MED ONE Stop: 04/23/17 07:44 Fentanyl (Sublimaze) Confirm Administered Dose 100 mcg .ROUTE .STK-MED ONE Stop: 04/23/17 09:06 Fentanyl (Sublimaze) 50 mcg IVPUSH Q5M PRN PRN Reason: Pain Stop: 04/23/17 10:47 Fentanyl (Sublimaze) Confirm Administered Dose 100 mcg .ROUTE .STK-MED ONE Stop: 04/23/17 12:09 Fentanyl (Sublimaze) Confirm Administered Dose 100 mcg .ROUTE .STK-MED ONE Stop: 04/23/17 12:52 Lactated Ringer's (Ringers, Lactated) 1,000 mls @ 125 mls/hr IV ASDIRECTED LEEANN Lidocaine HCl (Xylocaine-Mpf 1%) Confirm Administered Dose 2 mls @ as directed .ROUTE .STK-MED ONE Stop: 04/23/17 07:44 Iodine (Iodine 2% Mild Tincture) Confirm Administered Dose 30 ml .ROUTE .STK- MED ONE Stop: 04/23/17 06:46 Last Admin: 04/23/17 10:02 Dose: 18 ml Lidocaine/Sodium Bicarbonate (Buffered Lidocaine 1% In Ns 8.4%) 0.25 ml IDERM ONETIME PRN PRN Reason: Prior to IV Start Meperidine HCl (Demerol) 12.5 mg IVPUSH ONETIME PRN PRN Reason: Shivering Stop: 04/23/17 14:00 Naloxone HCl (Narcan) 0.1 mg IVPUSH Q5M PRN PRN Reason: Oversedation Non-Formulary Medication (Nystatin) 1 dose .ROUTE TID PRN PRN Reason: asdirected Ondansetron HCl (Zofran) Confirm Administered Dose 4 mg .ROUTE .STK-MED ONE Stop: 04/23/17 07:46 Ondansetron HCl (Zofran) 4 mg IVPUSH ONETIME PRN PRN Reason: Nausea/Vomiting Stop: 04/23/17 16:00 Propofol (Diprivan 20 Ml) Confirm Administered Dose 200 mg .ROUTE .STK-MED ONE Stop: 04/23/17 07:46 Ropivacaine (Naropin 0.5%) Confirm Administered Dose 30 ml .ROUTE .STK-MED ONE Stop: 04/23/17 07:14 Tranexamic Acid (Cyklokapron) Confirm Administered Dose 1,000 mg .ROUTE .STK- MED ONE Stop: 04/23/17 06:46 Last Admin: 04/23/17 10:07 Dose: 1,000 mg Vancomycin HCl (Vancomycin) Confirm Administered Dose 1 gm .ROUTE .STK-MED ONE Stop: 04/23/17 06:46 Last Admin: 04/23/17 10:07 Dose: 1 gm - Exam Wound/Incisions: Dressing Dry and Intact General: Alert, Cooperative, No Acute Distress Extremities: Other (NVS intact for RUE. Active right elbow, wrist, hand motion noted.) - Problem List Review Problem List Initiated/Reviewed/Updated: Yes - My Orders Last 24 Hours: Active Orders 24 hr Category Date Time Status Notify Provider [RC] ASDIRECTED Care 04/23/17 10:46 Active Vital Signs [RC] Q15M Care 04/23/17 10:46 Inactive Regular Diet [DIET] Diet 04/23/17 Lunch Active Aspirin Med 04/24/17 09:00 Active 81 mg PO DAILY Calcium Carbonate/Vitamin D3 [Calcium Carbonate/Vitamin Med 04/24/17 09:00 Active D 1500 MG-200 Unit] 1 tab PO DAILY Cholecalciferol (Vitamin D3) [Vitamin D3] Med 04/24/17 09:00 Active 1,000 units PO DAILY Cyanocobalamin (Vitamin B12) [Vitamin B12] Med 04/24/17 09:00 Active 1,000 mcg PO DAILY Docusate Sodium [Colace] Med 04/23/17 21:00 Active 100 mg PO BID Enoxaparin [Lovenox] Med 04/24/17 09:00 Active 40 mg SUBCUT DAILY Famotidine [Pepcid] Med 04/24/17 09:00 Active 20 mg PO DAILY Folic Acid Med 04/24/17 09:00 Active 3 mg PO DAILY Latanoprost [Xalatan 0.005% Ophth Soln] Med 04/23/17 21:00 Active 0 ml EYEBOTH BEDTIME Levothyroxine [Synthroid] Med 04/24/17 06:00 Active 88 mcg PO ACBREAKFAST Losartan [Cozaar] Med 04/23/17 21:00 Active 50 mg PO BID Metoprolol Succinate [Toprol XL] Med 04/23/17 15:00 Active 50 mg PO TID Multivitamins,Therapeutic [Thera] Med 04/24/17 09:00 Active 1 each PO DAILY Simvastatin [Zocor] Med 04/23/17 21:00 Active 40 mg PO BEDTIME ceFAZolin [Ancef] 2 gm Med 04/23/17 17:30 Active Premix Bag 1 bag IV Q8H sulfaSALAzine Med 04/23/17 21:00 Active 1,000 mg PO BID Medication Orders Hydrocodone Bitart/Acetaminophen ([place] 325-5 Mg) 1 - 2 tab PO Q4H PRN PRN Reason: Pain Last Admin: 04/24/17 06:51 Dose: 2 tab Admin: 04/23/17 22:05 Dose: 2 tab Aspirin (Aspirin) 81 mg PO DAILY [facility] Bisacodyl (Dulcolax) 5 mg PO DAILY PRN PRN Reason: Constipation Calcium Carbonate (Calcium Carbonate/Vitamin D 1500 Mg-200 Unit) 1 tab PO DAILY [facility] Cholecalciferol (Vitamin D3) 1,000 units PO DAILY [facility] Cyanocobalamin (Vitamin B12) 1,000 mcg PO DAILY [facility] Docusate Sodium (Colace) 100 mg PO BID [facility] Last Admin: 04/23/17 22:03 Dose: 100 mg Enoxaparin Sodium (Lovenox) 40 mg SUBCUT DAILY [facility] Famotidine (Pepcid) 20 mg PO DAILY [facility] Folic Acid (Folic Acid) 3 mg PO DAILY [facility] Cefazolin Sodium/Dextrose 2 gm (/ Premix) 50 mls @ 100 mls/hr IV Q8H [facility] Stop: 04/24/17 09:59 Last Admin: 04/24/17 01:47 Dose: 100 mls/hr Infusion: 04/23/17 17:09 Dose: 100 mls/hr Admin: 04/23/17 16:39 Dose: 100 mls/hr Latanoprost (Xalatan 0.005% Ophth Soln) 0 ml EYEBOTH BEDTIME [facility] Last Admin: 04/23/17 22:07 Dose: 1 drop Levothyroxine Sodium (Synthroid) 88 mcg PO ACBREAKFAST [facility] Last Admin: 04/24/17 06:51 Dose: 88 mcg Losartan Potassium (Cozaar) 50 mg PO BID [facility] Last Admin: 04/23/17 22:03 Dose: 50 mg Metoprolol Succinate (Toprol Xl) 50 mg PO TID [facility] Last Admin: 04/23/17 22:04 Dose: 50 mg Admin: 04/23/17 16:35 Dose: 50 mg Morphine Sulfate (Morphine) 2 mg IVPUSH Q2H PRN PRN Reason: Breakthrough Pain Multivitamins (Thera) 1 each PO DAILY [facility] Ondansetron HCl (Zofran) 4 mg IVPUSH Q6H PRN PRN Reason: Nausea/Vomiting Senna (Senna) 8.6 mg PO BID PRN PRN Reason: Constipation Simvastatin (Zocor) 40 mg PO BEDTIME [facility] Last Admin: 04/23/17 22:05 Dose: 40 mg Sodium Chloride (Saline Flush) 10 ml FLUSH ASDIRECTED PRN PRN Reason: Keep Vein Open Sulfasalazine (Sulfasalazine) 1,000 mg PO BID [facility] Last Admin: 04/23/17 22:04 Dose: 1,000 mg - Assessment Assessment (Free Text/Narrative):: POD#1 - right RTSA - Plan Plan (Free Text/Narrative):: 1. Hgb 11.5. 2. Lovenox, SCDs, TEDs, frequent mobility for VTE prophylaxis. 3. Discharge to [place] this week for continued therapy. The pt's case was discussed with Dr. Morataya.
[2017-04-24] MEDS ORDERED: Famotidine 20 MG Tab PO SCH (09:00)
--- NOTE | 2017-04-24 09:38 | PCM48HPAN ---
Post Anesthesia Note - EVALUATION WITHIN 48HRS OF ANESTHETIC Vital Signs in Normal Range: Yes Patient Participated in Evaluation: Yes Respiratory Function Stable: Yes Airway Patent: Yes Cardiovascular Function Stable: Yes Hydration Status Stable: Yes Pain Control Satisfactory: Yes Nausea and Vomiting Control Satisfactory: Yes Mental Status Recovered: Yes
[2017-04-24] MEDS: Losartan 25 MG Tab PO SCH ×2 (09:47→20:38)
[2017-04-24] MEDS: Enoxaparin 40 MG/0.4 ML Syringe SUBCUT SCH (09:47)
[2017-04-24] MEDS: Cholecalciferol (Vitamin D3) 1,000 Unit Tab PO SCH (09:47)
[2017-04-24] MEDS: sulfaSALAzine 500 MG Tab PO SCH ×2 (09:48→20:38)
[2017-04-24] MEDS: Metoprolol Succinate 50 MG Tab.ER PO SCH ×3 (09:48→20:37)
[2017-04-24] MEDS: Aspirin 81 MG Tab.Chew PO SCH (09:48)
[2017-04-24] MEDS: Folic Acid 1 MG Tab PO SCH (09:49)
[2017-04-24] MEDS: Docusate Sodium 100 MG Cap PO SCH ×2 (09:49→20:37)
[2017-04-24] MEDS: Multivitamins,Therapeutic Tab PO SCH (09:49)
[2017-04-24] MEDS: Cyanocobalamin (Vitamin B12) 1,000 MCG Tab PO SCH (09:49)
[2017-04-24] MEDS: Calcium Carbonate/Vitamin D3 600 MG-200 Units Tab PO SCH (09:49)
[2017-04-24] MEDS: Simvastatin 40 MG Tab PO SCH (20:37)
[2017-04-24] MEDS: Latanoprost 0.005% Ophth Soln 2.5 ML Bottle EYEBOTH SCH (20:40)
[2017-04-25] MEDS: Levothyroxine 88 MCG Tab PO SCH (06:21)
--- NOTE | 2017-04-25 08:05 | PCM.CONSN ---
- General Info Date of Service: 04/25/17 Admission Dx/Problem (Free Text): Admission Diagnosis/Problem Admission Diagnosis/Problem Osteoarthritis of shoulder POD #[address] Rafia waite, pain controlled. Good appetite, no n/v. Ambulating and working with therapy. Plans for DC to SNF for rehab stay, plan DC tomorrow. Functional Status: Reports: Pain Controlled, Tolerating Diet, Ambulating, Urinating, Incentive Spirometry. Denies: New Symptoms - Review of Systems General: Reports: No Symptoms HEENT: Reports: No Symptoms Pulmonary: Reports: No Symptoms Cardiovascular: Reports: No Symptoms Gastrointestinal: Reports: No Symptoms Genitourinary: Reports: No Symptoms Musculoskeletal: Reports: Shoulder Pain, Arm Pain Skin: Reports: No Symptoms Neurological: Reports: No Symptoms Psychiatric: Reports: No Symptoms - Patient Data Vitals - Most Recent: Last Vital Signs Temp 98.8 F 04/25/17 01:57 Pulse 62 04/25/17 01:58 Resp 18 04/25/17 01:57 BP 123/92 H 04/25/17 01:57 Pulse Ox 93 L 04/25/17 01:58 Weight - Most Recent: 196 lb 11.2 oz I&O - Last 24 Hours: Intake & Output 04/24/17 04/25/17 04/25/17 22:59 06:59 14:59 Intake Total 700 200 Balance 700 200 Med Orders - Current: Current Medications Hydrocodone Bitart/Acetaminophen ([place] 325-5 Mg) 1 - 2 tab PO Q4H PRN PRN Reason: Pain Last Admin: 04/24/17 19:27 Dose: 2 tab Aspirin (Aspirin) 81 mg PO DAILY [facility] Last Admin: 04/24/17 09:48 Dose: 81 mg Bisacodyl (Dulcolax) 5 mg PO DAILY PRN PRN Reason: Constipation Calcium Carbonate (Calcium Carbonate/Vitamin D 1500 Mg-200 Unit) 1 tab PO DAILY [facility] Last Admin: 04/24/17 09:49 Dose: 1 tab Cholecalciferol (Vitamin D3) 1,000 units PO DAILY [facility] Last Admin: 04/24/17 09:47 Dose: 1,000 units Cyanocobalamin (Vitamin B12) 1,000 mcg PO DAILY [facility] Last Admin: 04/24/17 09:49 Dose: 1,000 mcg Docusate Sodium (Colace) 100 mg PO BID [facility] Last Admin: 04/24/17 20:37 Dose: 100 mg Enoxaparin Sodium (Lovenox) 40 mg SUBCUT DAILY [facility] Last Admin: 04/24/17 09:47 Dose: 40 mg Folic Acid (Folic Acid) 3 mg PO DAILY [facility] Last Admin: 04/24/17 09:49 Dose: 3 mg Latanoprost (Xalatan 0.005% Ophth Soln) 0 ml EYEBOTH BEDTIME [facility] Last Admin: 04/24/17 20:40 Dose: 1 drop Levothyroxine Sodium (Synthroid) 88 mcg PO ACBREAKFAST [facility] Last Admin: 04/25/17 06:21 Dose: 88 mcg Losartan Potassium (Cozaar) 50 mg PO BID [facility] Last Admin: 04/24/17 20:38 Dose: 50 mg Metoprolol Succinate (Toprol Xl) 50 mg PO TID [facility] Last Admin: 04/24/17 20:37 Dose: 50 mg Morphine Sulfate (Morphine) 2 mg IVPUSH Q2H PRN PRN Reason: Breakthrough Pain Multivitamins (Thera) 1 each PO DAILY [facility] Last Admin: 04/24/17 09:49 Dose: 1 each Non-Formulary Medication (Omeprazole) 20 mg PO DAILY [facility] Ondansetron HCl (Zofran) 4 mg IVPUSH Q6H PRN PRN Reason: Nausea/Vomiting Senna (Senna) 8.6 mg PO BID PRN PRN Reason: Constipation Simvastatin (Zocor) 40 mg PO BEDTIME [facility] Last Admin: 04/24/17 20:37 Dose: 40 mg Sodium Chloride (Saline Flush) 10 ml FLUSH ASDIRECTED PRN PRN Reason: Keep Vein Open Sulfasalazine (Sulfasalazine) 1,000 mg PO BID [facility] Last Admin: 04/24/17 20:38 Dose: 1,000 mg Discontinued Medications Bupivacaine HCl (Marcaine 0.25%) Confirm Administered Dose 30 ml .ROUTE .STK- MED ONE Stop: 04/23/17 06:46 Last Admin: 04/23/17 10:05 Dose: 30 ml Cefazolin Sodium (Ancef) Confirm Administered Dose 2 gm .ROUTE .STK-MED ONE Stop: 04/23/17 09:18 Cefazolin Sodium (Ancef) Confirm Administered Dose 2 gm .ROUTE .STK-MED ONE Stop: 04/23/17 10:09 Last Admin: 04/23/17 10:04 Dose: 2 gm Cefazolin Sodium (Ancef) Confirm Administered Dose 2 gm .ROUTE .[facility] ONE Stop: 04/23/17 10:11 Dexamethasone (Dexamethasone) Confirm Administered Dose 4 mg .ROUTE .[facility]-MED ONE Stop: 04/23/17 07:47 Diphenhydramine HCl (Benadryl) 25 mg IVPUSH Q6H PRN PRN Reason: Pruritis Stop: 04/23/17 16:00 Ephedrine Sulfate (Ephedrine Sulfate) Confirm Administered Dose 50 mg .ROUTE .ST-MED ONE Stop: 04/23/17 10:13 Epinephrine HCl (Adrenalin) Confirm Administered Dose 1 mg .ROUTE .[facility] ONE Stop: 04/23/17 07:14 Famotidine (Pepcid) 20 mg PO Q12H [facility] Last Admin: 04/23/17 22:04 Dose: 20 mg Famotidine (Pepcid) 20 mg PO DAILY [facility] Last Admin: 04/24/17 09:48 Dose: 20 mg Fentanyl (Sublimaze) Confirm Administered Dose 100 mcg .ROUTE .[facility]-MED ONE Stop: 04/23/17 07:44 Fentanyl (Sublimaze) Confirm Administered Dose 100 mcg .ROUTE .[facility]-MED ONE Stop: 04/23/17 09:06 Fentanyl (Sublimaze) 50 mcg IVPUSH Q5M PRN PRN Reason: Pain Stop: 04/23/17 10:47 Fentanyl (Sublimaze) Confirm Administered Dose 100 mcg .ROUTE .[facility] ONE Stop: 04/23/17 12:09 Fentanyl (Sublimaze) Confirm Administered Dose 100 mcg .ROUTE .[facility] ONE Stop: 04/23/17 12:52 Lactated Ringer's (Ringers, Lactated) 1,000 mls @ 125 mls/hr IV ASDIRECTED [facility] Cefazolin Sodium/Dextrose 2 gm (/ Premix) 50 mls @ 100 mls/hr IV Q8H [facility] Stop: 04/24/17 09:59 Last Admin: 04/24/17 09:49 Dose: 100 mls/hr Lidocaine HCl (Xylocaine-Mpf 1%) Confirm Administered Dose 2 mls @ as directed .ROUTE .[facility] ONE Stop: 04/23/17 07:44 Iodine (Iodine 2% Mild Tincture) Confirm Administered Dose 30 ml .ROUTE .STK- MED ONE Stop: 04/23/17 06:46 Last Admin: 04/23/17 10:02 Dose: 18 ml Lidocaine/Sodium Bicarbonate (Buffered Lidocaine 1% In Ns 8.4%) 0.25 ml IDERM ONETIME PRN PRN Reason: Prior to IV Start Meperidine HCl (Demerol) 12.5 mg IVPUSH ONETIME PRN PRN Reason: Shivering Stop: 04/23/17 14:00 Naloxone HCl (Narcan) 0.1 mg IVPUSH Q5M PRN PRN Reason: Oversedation Non-Formulary Medication (Nystatin) 1 dose .ROUTE TID PRN PRN Reason: asdirected Ondansetron HCl (Zofran) Confirm Administered Dose 4 mg .ROUTE .STK-MED ONE Stop: 04/23/17 07:46 Ondansetron HCl (Zofran) 4 mg IVPUSH ONETIME PRN PRN Reason: Nausea/Vomiting Stop: 04/23/17 16:00 Propofol (Diprivan 20 Ml) Confirm Administered Dose 200 mg .ROUTE .STK-MED ONE Stop: 04/23/17 07:46 Ropivacaine (Naropin 0.5%) Confirm Administered Dose 30 ml .ROUTE .STK-MED ONE Stop: 04/23/17 07:14 Tranexamic Acid (Cyklokapron) Confirm Administered Dose 1,000 mg .ROUTE .STK- MED ONE Stop: 04/23/17 06:46 Last Admin: 04/23/17 10:07 Dose: 1,000 mg Vancomycin HCl (Vancomycin) Confirm Administered Dose 1 gm .ROUTE .STK-MED ONE Stop: 04/23/17 06:46 Last Admin: 04/23/17 10:07 Dose: 1 gm - Exam Quality Assessment: Supplemental Oxygen, DVT Prophylaxis General: Alert, Oriented, Cooperative, No Acute Distress HEENT: Pupils Equal, EOMI, Mucous Membr. Moist/[place] Neck: Supple Lungs: Clear to Auscultation, Normal Respiratory Effort, Decreased Breath Sounds (bases) Cardiovascular: Regular Rate, Regular Rhythm GI/Abdominal Exam: Normal Bowel Sounds, Soft, Non-Tender (Female) Exam: Deferred Back Exam: Normal Inspection Extremities: Other (shoulder immobilizer present and ice to shoulder) Peripheral Pulses: 2+: Radial (L), Radial (R) Neurological: No New Focal Deficit Psy/Mental Status: Alert, Normal Affect, Normal Mood Consult PN Assessment/Plan POD#: 2 Procedures: Procedures ASSAY OF NATRIURETIC PEPTIDE (02/03/16) ASSAY OF PREALBUMIN (03/30/17) ASSAY THYROID STIM HORMONE (11/02/16) C-REACTIVE PROTEIN (05/25/16) COMPLETE CBC AUTOMATED (02/03/16) COMPLETE CBC W/AUTO DIFF WBC (03/24/17) COMPREHEN METABOLIC PANEL (03/24/17) CULTURE SCREEN ONLY (03/24/16) DXA BONE DENSITY AXIAL (04/03/17) ELECTROCARDIOGRAM TRACING (02/03/16) EMERGENCY DEPT VISIT (02/03/16) EMERGENCY DEPT VISIT (01/17/14) EXTREMITY STUDY (02/03/16) GAIT TRAINING THERAPY (02/03/16) LIPID PANEL (03/24/17) MANUAL THERAPY 1/> REGIONS (07/12/16) METABOLIC PANEL TOTAL CA (02/03/16) OT EVALUATION (02/03/16) PROTHROMBIN TIME (03/30/17) PT EVAL MOD COMPLEX 30 MIN (06/14/16) PT EVALUATION (02/03/16) ROUTINE VENIPUNCTURE (03/30/17) STREP A AG IA (03/24/16) THER/PROPH/DIAG IV INF INIT (02/03/16) THERAPEUTIC EXERCISES (08/02/16) THROMBOPLASTIN TIME PARTIAL (02/03/16) TISSUE EXAM BY PATHOLOGIST (01/07/15) ULTRASOUND THERAPY (07/12/16) URINALYSIS AUTO W/SCOPE (02/03/16) URINE BACTERIA CULTURE (01/17/14) X-RAY EXAM CHEST 2 VIEWS (03/30/17) X-RAY EXAM OF SHOULDER (05/24/16) (1) S/p reverse total shoulder arthroplasty SNOMED Code(s): 406765600 Code(s): Z96.619 - PRESENCE OF UNSPECIFIED ARTIFICIAL SHOULDER JOINT Priority: High Current Visit: Yes Qualifiers: Laterality: right Qualified Code(s): Z96.611 - Presence of right artificial shoulder joint (2) Osteoarthritis SNOMED Code(s): 393001306 Code(s): M19.90 - UNSPECIFIED OSTEOARTHRITIS, UNSPECIFIED SITE Priority: High Current Visit: Yes Qualifiers: Osteoarthritis location: shoulder Osteoarthritis type: primary Laterality : right Qualified Code(s): M19.011 - Primary osteoarthritis, right shoulder Problem List Initiated/Reviewed/Updated: Yes My Orders Last 24 Hours: My Active Orders 04/25/17 07:59 BASIC METABOLIC PANEL,BMP [CHEM] Urgent CBC WITH AUTO DIFF [HEME] Urgent MAGNESIUM [CHEM] Urgent 04/25/17 09:00 Omeprazole 20 mg PO DAILY 04/26/17 05:11 BASIC METABOLIC PANEL,BMP [CHEM] AM CBC WITH AUTO DIFF [HEME] AM MAGNESIUM [CHEM] AM Plan: I/P: Acute: S/P right reverse total shoulder arthroplasty - post-operative day 2 -DVT prophylaxis and pain management per primary care team -PT/OT -IS/RT -Monitor labs -Hgb today 11.5-->11.8 -eGFR 53, creatinine 1.0- stable Osteoarthritis of right shoulder -Pain management per primary care team Chronic: Glaucoma Macular degeneration Hx/of blood clots/VTE/DVT in left leg--lovenox and baby ASA CAD- cont home meds HLD- cont home meds HTN- stable GERD- PPI Barrettes esophagitis- PPI CKD stage 3- stable CVA Hypothyroidism- cont home meds Plan: CM for discharge planning - plan to discharge to SNF for rehab stay- doing well , expect DC tomorrow. No concerns thus far from Hospitalist team. GI prophylaxis - as above with home PPI. Routine AM labs She is a full code. Her PCP is Karen Cortez PA-C at [facility]
[2017-04-25] MEDS: Pantoprazole 40 MG Tab.CR PO SCH (08:17)
[2017-04-25] MEDS: Cholecalciferol (Vitamin D3) 1,000 Unit Tab PO SCH (08:17)
[2017-04-25] MEDS: Docusate Sodium 100 MG Cap PO SCH ×2 (08:17→20:41)
[2017-04-25] MEDS: Aspirin 81 MG Tab.Chew PO SCH (08:17)
[2017-04-25] MEDS: Cyanocobalamin (Vitamin B12) 1,000 MCG Tab PO SCH (08:17)
[2017-04-25] MEDS: Folic Acid 1 MG Tab PO SCH (08:17)
[2017-04-25] MEDS: Calcium Carbonate/Vitamin D3 600 MG-200 Units Tab PO SCH (08:17)
[2017-04-25] MEDS: Multivitamins,Therapeutic Tab PO SCH (08:17)
[2017-04-25] MEDS: sulfaSALAzine 500 MG Tab PO SCH ×2 (08:17→20:41)
[2017-04-25] MEDS: Metoprolol Succinate 50 MG Tab.ER PO SCH ×3 (08:18→20:39)
[2017-04-25] MEDS: Losartan 25 MG Tab PO SCH ×2 (08:18→20:41)
[2017-04-25] MEDS: Enoxaparin 40 MG/0.4 ML Syringe SUBCUT SCH (08:19)
[2017-04-25] MEDS: Acetaminophen/HYDROcodone 325-5 MG Tab PO PRN (08:19)
[2017-04-25] MEDS ORDERED: Magnesium Oxide 400 MG Tab PO ONE (18:04)
[2017-04-25] MEDS: Latanoprost 0.005% Ophth Soln 2.5 ML Bottle EYEBOTH SCH (20:38)
[2017-04-25] MEDS: Simvastatin 40 MG Tab PO SCH (20:41)
[2017-04-26] MEDS: Levothyroxine 88 MCG Tab PO SCH (06:05)
--- NOTE | 2017-04-26 06:42 | PCM.SURGPN ---
- General Info Date of Service: 04/26/17 POD#: 3 Functional Status: Reports: Pain Controlled, Tolerating Diet, Ambulating, Urinating, Incentive Spirometry - Review of Systems Musculoskeletal: Reports: Other (The pt states she is doing well and prepared for discharge to the [facility] today.) - Patient Data Vitals - Most Recent: Last Vital Signs Temp 99.9 F 04/26/17 03:04 Pulse 73 04/26/17 03:04 Resp 16 04/26/17 03:04 BP 127/65 04/26/17 03:04 Pulse Ox 90 L 04/26/17 03:04 Weight - Most Recent: 197 lb 9.6 oz I&O - Last 24 Hours: Intake & Output 04/25/17 04/25/17 04/26/17 14:59 22:59 06:59 Intake Total 120 1280 500 Balance 120 1280 500 Lab Results Last 24 Hrs: Laboratory Results - last 24 hr 04/25/17 04/25/17 Range/Units 09:12 09:12 WBC 7.75 (3.98-10.04) K/mm3 RBC 4.10 (3.98-5.22) M/mm3 Hgb 11.8 (11.2-15.7) gm/L Hct 36.7 (34.1-44.9) % MCV 89.5 (79.4-94.8) fl MCH 28.8 (25.6-32.2) pg MCHC 32.2 (32.2-35.5) g/dl RDW Std Deviation 50.1 H (36.4-46.3) fL Plt Count 148 L (182-369) K/mm3 MPV 11.8 (9.4-12.3) fl Neut % (Auto) 71.8 H (34.0-71.1) % Lymph % (Auto) 17.9 L (19.3-51.7) % Brown % (Auto) 9.2 (4.7-12.5) % Eos % (Auto) 0.4 L (0.7-5.8) Baso % (Auto) 0.4 (0.1-1.2) % Neut # (Auto) 5.57 (1.56-6.13) K/mm3 Lymph # (Auto) 1.39 (1.18-3.74) K/mm3 Brown # (Auto) 0.71 H (0.24-0.36) K/mm3 Eos # (Auto) 0.03 L (0.04-0.36) K/mm3 Baso # (Auto) 0.03 (0.01-0.08) K/mm3 Sodium 141 (136-145) mEq/L Potassium 3.6 (3.5-5.1) mEq/L Chloride 107 (98-107) mEq/L Carbon Dioxide 25 (21-32) mEq/L Anion Gap 12.6 (5-15) BUN 18 (7-18) mg/dL Creatinine 1.1 H (0.55-1.02) mg/dL Est Cr Clr Drug Dosing 29.75 mL/min Estimated GFR (MDRD) 48 (>60) mL/min BUN/Creatinine Ratio 16.4 (14-18) Glucose 138 H (83-115) mg/dL Calcium 9.4 (8.5-10.1) mg/dL Magnesium 1.7 L (1.8-2.4) mg/dl Med Orders - Current: Current Medications Hydrocodone Bitart/Acetaminophen ([place] 325-5 Mg) 1 - 2 tab PO Q4H PRN PRN Reason: Pain Last Admin: 04/25/17 08:19 Dose: 2 tab Aspirin (Aspirin) 81 mg PO DAILY [facility] Last Admin: 04/25/17 08:17 Dose: 81 mg Bisacodyl (Dulcolax) 5 mg PO DAILY PRN PRN Reason: Constipation Last Admin: 04/25/17 18:33 Dose: 5 mg Calcium Carbonate (Calcium Carbonate/Vitamin D 1500 Mg-200 Unit) 1 tab PO DAILY [facility] Last Admin: 04/25/17 08:17 Dose: 1 tab Cholecalciferol (Vitamin D3) 1,000 units PO DAILY [facility] Last Admin: 04/25/17 08:17 Dose: 1,000 units Cyanocobalamin (Vitamin B12) 1,000 mcg PO DAILY [facility] Last Admin: 04/25/17 08:17 Dose: 1,000 mcg Docusate Sodium (Colace) 100 mg PO BID [facility] Last Admin: 04/25/17 20:41 Dose: 100 mg Enoxaparin Sodium (Lovenox) 40 mg SUBCUT DAILY [facility] Last Admin: 04/25/17 08:19 Dose: 40 mg Folic Acid (Folic Acid) 3 mg PO DAILY [facility] Last Admin: 04/25/17 08:17 Dose: 3 mg Latanoprost (Xalatan 0.005% Ophth Soln) 0 ml EYEBOTH BEDTIME [facility] Last Admin: 04/25/17 20:38 Dose: 1 drop Levothyroxine Sodium (Synthroid) 88 mcg PO ACBREAKFAST [facility] Last Admin: 04/26/17 06:05 Dose: 88 mcg Losartan Potassium (Cozaar) 50 mg PO BID [facility] Last Admin: 04/25/17 20:41 Dose: 50 mg Metoprolol Succinate (Toprol Xl) 50 mg PO TID [facility] Last Admin: 04/25/17 20:39 Dose: 50 mg Morphine Sulfate (Morphine) 2 mg IVPUSH Q2H PRN PRN Reason: Breakthrough Pain Multivitamins (Thera) 1 each PO DAILY [facility] Last Admin: 04/25/17 08:17 Dose: 1 each Ondansetron HCl (Zofran) 4 mg IVPUSH Q6H PRN PRN Reason: Nausea/Vomiting Pantoprazole Sodium (Protonix) 40 mg PO DAILY [facility] Last Admin: 04/25/17 08:17 Dose: 40 mg Senna (Senna) 8.6 mg PO BID PRN PRN Reason: Constipation Last Admin: 04/25/17 18:33 Dose: 8.6 mg Simvastatin (Zocor) 40 mg PO BEDTIME [facility] Last Admin: 04/25/17 20:41 Dose: 40 mg Sodium Chloride (Saline Flush) 10 ml FLUSH ASDIRECTED PRN PRN Reason: Keep Vein Open Sulfasalazine (Sulfasalazine) 1,000 mg PO BID [facility] Last Admin: 04/25/17 20:41 Dose: 1,000 mg Discontinued Medications Bupivacaine HCl (Marcaine 0.25%) Confirm Administered Dose 30 ml .ROUTE .STK- MED ONE Stop: 04/23/17 06:46 Last Admin: 04/23/17 10:05 Dose: 30 ml Cefazolin Sodium (Ancef) Confirm Administered Dose 2 gm .ROUTE .STK-MED ONE Stop: 04/23/17 09:18 Cefazolin Sodium (Ancef) Confirm Administered Dose 2 gm .ROUTE .STK-MED ONE Stop: 04/23/17 10:09 Last Admin: 04/23/17 10:04 Dose: 2 gm Cefazolin Sodium (Ancef) Confirm Administered Dose 2 gm .ROUTE .STK-MED ONE Stop: 04/23/17 10:11 Dexamethasone (Dexamethasone) Confirm Administered Dose 4 mg .ROUTE .STK-MED ONE Stop: 04/23/17 07:47 Diphenhydramine HCl (Benadryl) 25 mg IVPUSH Q6H PRN PRN Reason: Pruritis Stop: 04/23/17 16:00 Ephedrine Sulfate (Ephedrine Sulfate) Confirm Administered Dose 50 mg .ROUTE .STK-MED ONE Stop: 04/23/17 10:13 Epinephrine HCl (Adrenalin) Confirm Administered Dose 1 mg .ROUTE .STK-MED ONE Stop: 04/23/17 07:14 Famotidine (Pepcid) 20 mg PO Q12H [facility] Last Admin: 04/23/17 22:04 Dose: 20 mg Famotidine (Pepcid) 20 mg PO DAILY [facility] Last Admin: 04/24/17 09:48 Dose: 20 mg Fentanyl (Sublimaze) Confirm Administered Dose 100 mcg .ROUTE .STK-MED ONE Stop: 04/23/17 07:44 Fentanyl (Sublimaze) Confirm Administered Dose 100 mcg .ROUTE .STK-MED ONE Stop: 04/23/17 09:06 Fentanyl (Sublimaze) 50 mcg IVPUSH Q5M PRN PRN Reason: Pain Stop: 04/23/17 10:47 Fentanyl (Sublimaze) Confirm Administered Dose 100 mcg .ROUTE .STK-MED ONE Stop: 04/23/17 12:09 Fentanyl (Sublimaze) Confirm Administered Dose 100 mcg .ROUTE .STK-MED ONE Stop: 04/23/17 12:52 Lactated Ringer's (Ringers, Lactated) 1,000 mls @ 125 mls/hr IV ASDIRECTED [facility] Cefazolin Sodium/Dextrose 2 gm (/ Premix) 50 mls @ 100 mls/hr IV Q8H [facility] Stop: 04/24/17 09:59 Last Admin: 04/24/17 09:49 Dose: 100 mls/hr Lidocaine HCl (Xylocaine-Mpf 1%) Confirm Administered Dose 2 mls @ as directed .ROUTE .STK-MED ONE Stop: 04/23/17 07:44 Iodine (Iodine 2% Mild Tincture) Confirm Administered Dose 30 ml .ROUTE .STK- MED ONE Stop: 04/23/17 06:46 Last Admin: 04/23/17 10:02 Dose: 18 ml Lidocaine/Sodium Bicarbonate (Buffered Lidocaine 1% In Ns 8.4%) 0.25 ml IDERM ONETIME PRN PRN Reason: Prior to IV Start Magnesium Oxide (Magnesium Oxide) 400 mg PO ONETIME ONE Stop: 04/25/17 18:05 Last Admin: 04/25/17 18:33 Dose: 400 mg Meperidine HCl (Demerol) 12.5 mg IVPUSH ONETIME PRN PRN Reason: Shivering Stop: 04/23/17 14:00 Naloxone HCl (Narcan) 0.1 mg IVPUSH Q5M PRN PRN Reason: Oversedation Non-Formulary Medication (Nystatin) 1 dose .ROUTE TID PRN PRN Reason: asdirected Ondansetron HCl (Zofran) Confirm Administered Dose 4 mg .ROUTE .STK-MED ONE Stop: 04/23/17 07:46 Ondansetron HCl (Zofran) 4 mg IVPUSH ONETIME PRN PRN Reason: Nausea/Vomiting Stop: 04/23/17 16:00 Propofol (Diprivan 20 Ml) Confirm Administered Dose 200 mg .ROUTE .STK-MED ONE Stop: 04/23/17 07:46 Ropivacaine (Naropin 0.5%) Confirm Administered Dose 30 ml .ROUTE .STK-MED ONE Stop: 04/23/17 07:14 Tranexamic Acid (Cyklokapron) Confirm Administered Dose 1,000 mg .ROUTE .STK- MED ONE Stop: 04/23/17 06:46 Last Admin: 04/23/17 10:07 Dose: 1,000 mg Vancomycin HCl (Vancomycin) Confirm Administered Dose 1 gm .ROUTE .STK-MED ONE Stop: 04/23/17 06:46 Last Admin: 04/23/17 10:07 Dose: 1 gm - Exam Wound/Incisions: Dressing Dry and Intact General: Alert, Cooperative, No Acute Distress Lungs: Normal Respiratory Effort Extremities: Other (NVS intact for BUE. Active right elbow, wrist, hand motion noted.) - Problem List Review Problem List Initiated/Reviewed/Updated: Yes - My Orders Last 24 Hours: Active Orders 24 hr Category Date Time Status Ready for Discharge [RC] PER UNIT ROUTINE Care 04/26/17 06:05 Active BASIC METABOLIC PANEL,BMP [CHEM] AM Lab 04/26/17 05:11 Ordered CBC WITH AUTO DIFF [HEME] AM Lab 04/26/17 05:11 Ordered MAGNESIUM [CHEM] AM Lab 04/26/17 05:11 Ordered Pantoprazole [ProTONIX] Med 04/25/17 09:00 Active 40 mg PO DAILY Medication Orders Hydrocodone Bitart/Acetaminophen ([place] 325-5 Mg) 1 - 2 tab PO Q4H PRN PRN Reason: Pain Last Admin: 04/25/17 08:19 Dose: 2 tab Admin: 04/24/17 19:27 Dose: 2 tab Admin: 04/24/17 06:51 Dose: 2 tab Admin: 04/23/17 22:05 Dose: 2 tab Aspirin (Aspirin) 81 mg PO DAILY [facility] Last Admin: 04/25/17 08:17 Dose: 81 mg Admin: 04/24/17 09:48 Dose: 81 mg Bisacodyl (Dulcolax) 5 mg PO DAILY PRN PRN Reason: Constipation Last Admin: 04/25/17 18:33 Dose: 5 mg Calcium Carbonate (Calcium Carbonate/Vitamin D 1500 Mg-200 Unit) 1 tab PO DAILY [facility] Last Admin: 04/25/17 08:17 Dose: 1 tab Admin: 04/24/17 09:49 Dose: 1 tab Cholecalciferol (Vitamin D3) 1,000 units PO DAILY [facility] Last Admin: 04/25/17 08:17 Dose: 1,000 units Admin: 04/24/17 09:47 Dose: 1,000 units Cyanocobalamin (Vitamin B12) 1,000 mcg PO DAILY [facility] Last Admin: 04/25/17 08:17 Dose: 1,000 mcg Admin: 04/24/17 09:49 Dose: 1,000 mcg Docusate Sodium (Colace) 100 mg PO BID [facility] Last Admin: 04/25/17 20:41 Dose: 100 mg Admin: 04/25/17 08:17 Dose: 100 mg Admin: 04/24/17 20:37 Dose: 100 mg Admin: 04/24/17 09:49 Dose: 100 mg Admin: 04/23/17 22:03 Dose: 100 mg Enoxaparin Sodium (Lovenox) 40 mg SUBCUT DAILY [facility] Last Admin: 04/25/17 08:19 Dose: 40 mg Admin: 04/24/17 09:47 Dose: 40 mg Folic Acid (Folic Acid) 3 mg PO DAILY [facility] Last Admin: 04/25/17 08:17 Dose: 3 mg Admin: 04/24/17 09:49 Dose: 3 mg Latanoprost (Xalatan 0.005% Ophth Soln) 0 ml EYEBOTH BEDTIME [facility] Last Admin: 04/25/17 20:38 Dose: 1 drop Admin: 04/24/17 20:40 Dose: 1 drop Admin: 04/23/17 22:07 Dose: 1 drop Levothyroxine Sodium (Synthroid) 88 mcg PO ACBREAKFAST [facility] Last Admin: 04/26/17 06:05 Dose: 88 mcg Admin: 04/25/17 06:21 Dose: 88 mcg Admin: 04/24/17 06:51 Dose: 88 mcg Losartan Potassium (Cozaar) 50 mg PO BID [facility] Last Admin: 04/25/17 20:41 Dose: 50 mg Admin: 04/25/17 08:18 Dose: 50 mg Admin: 04/24/17 20:38 Dose: 50 mg Admin: 04/24/17 09:47 Dose: 50 mg Admin: 04/23/17 22:03 Dose: 50 mg Metoprolol Succinate (Toprol Xl) 50 mg PO TID [facility] Last Admin: 04/25/17 20:39 Dose: 50 mg Admin: 04/25/17 17:12 Dose: 50 mg Admin: 04/25/17 08:18 Dose: 50 mg Admin: 04/24/17 20:37 Dose: 50 mg Admin: 04/24/17 14:19 Dose: 50 mg Admin: 04/24/17 09:48 Dose: 50 mg Admin: 04/23/17 22:04 Dose: 50 mg Admin: 04/23/17 16:35 Dose: 50 mg Morphine Sulfate (Morphine) 2 mg IVPUSH Q2H PRN PRN Reason: Breakthrough Pain Multivitamins (Thera) 1 each PO DAILY [facility] Last Admin: 04/25/17 08:17 Dose: 1 each Admin: 04/24/17 09:49 Dose: 1 each Ondansetron HCl (Zofran) 4 mg IVPUSH Q6H PRN PRN Reason: Nausea/Vomiting Pantoprazole Sodium (Protonix) 40 mg PO DAILY [facility] Last Admin: 04/25/17 08:17 Dose: 40 mg Senna (Senna) 8.6 mg PO BID PRN PRN Reason: Constipation Last Admin: 04/25/17 18:33 Dose: 8.6 mg Simvastatin (Zocor) 40 mg PO BEDTIME [facility] Last Admin: 04/25/17 20:41 Dose: 40 mg Admin: 04/24/17 20:37 Dose: 40 mg Admin: 04/23/17 22:05 Dose: 40 mg Sodium Chloride (Saline Flush) 10 ml FLUSH ASDIRECTED PRN PRN Reason: Keep Vein Open Sulfasalazine (Sulfasalazine) 1,000 mg PO BID [facility] Last Admin: 04/25/17 20:41 Dose: 1,000 mg Admin: 04/25/17 08:17 Dose: 1,000 mg Admin: 04/24/17 20:38 Dose: 1,000 mg Admin: 04/24/17 09:48 Dose: 1,000 mg Admin: 04/23/17 22:04 Dose: 1,000 mg - Assessment Assessment (Free Text/Narrative):: POD#3 - s/p right reverse TSA - Plan Plan (Free Text/Narrative):: 1. Discharge to [facility] today for continued rehabilitation. 2. Lovenox rx provided. 3. [place] for pain management. The pt states her pain is well controlled. 4. Further orders per Hospitalist service. The pt's case was discussed with Dr. [place].
--- NOTE | 2017-04-26 06:42 | PCM.SURGPN ---
- General Info Date of Service: 04/25/17 POD#: 2 Functional Status: Reports: Pain Controlled, Tolerating Diet, Ambulating, Urinating, Other (The pt states her pain is well controlled. ) - Patient Data Vitals - Most Recent: Last Vital Signs Temp 99.9 F 04/26/17 03:04 Pulse 73 04/26/17 03:04 Resp 16 04/26/17 03:04 BP 127/65 04/26/17 03:04 Pulse Ox 90 L 04/26/17 03:04 Weight - Most Recent: 197 lb 9.6 oz I&O - Last 24 Hours: Intake & Output 04/25/17 04/25/17 04/26/17 14:59 22:59 06:59 Intake Total 120 1280 500 Balance 120 1280 500 Lab Results Last 24 Hrs: Laboratory Results - last 24 hr 04/25/17 04/25/17 Range/Units 09:12 09:12 WBC 7.75 (3.98-10.04) K/mm3 RBC 4.10 (3.98-5.22) M/mm3 Hgb 11.8 (11.2-15.7) gm/L Hct 36.7 (34.1-44.9) % MCV 89.5 (79.4-94.8) fl MCH 28.8 (25.6-32.2) pg MCHC 32.2 (32.2-35.5) g/dl RDW Std Deviation 50.1 H (36.4-46.3) fL Plt Count 148 L (182-369) K/mm3 MPV 11.8 (9.4-12.3) fl Neut % (Auto) 71.8 H (34.0-71.1) % Lymph % (Auto) 17.9 L (19.3-51.7) % [place] % (Auto) 9.2 (4.7-12.5) % Eos % (Auto) 0.4 L (0.7-5.8) Baso % (Auto) 0.4 (0.1-1.2) % Neut # (Auto) 5.57 (1.56-6.13) K/mm3 Lymph # (Auto) 1.39 (1.18-3.74) K/mm3 [place] # (Auto) 0.71 H (0.24-0.36) K/mm3 Eos # (Auto) 0.03 L (0.04-0.36) K/mm3 Baso # (Auto) 0.03 (0.01-0.08) K/mm3 Sodium 141 (136-145) mEq/L Potassium 3.6 (3.5-5.1) mEq/L Chloride 107 (98-107) mEq/L Carbon Dioxide 25 (21-32) mEq/L Anion Gap 12.6 (5-15) BUN 18 (7-18) mg/dL Creatinine 1.1 H (0.55-1.02) mg/dL Est Cr Clr Drug Dosing 29.75 mL/min Estimated GFR (MDRD) 48 (>60) mL/min BUN/Creatinine Ratio 16.4 (14-18) Glucose 138 H (83-115) mg/dL Calcium 9.4 (8.5-10.1) mg/dL Magnesium 1.7 L (1.8-2.4) mg/dl Med Orders - Current: Current Medications Hydrocodone Bitart/Acetaminophen ([place] 325-5 Mg) 1 - 2 tab PO Q4H PRN PRN Reason: Pain Last Admin: 04/25/17 08:19 Dose: 2 tab Aspirin (Aspirin) 81 mg PO DAILY [facility] Last Admin: 04/25/17 08:17 Dose: 81 mg Bisacodyl (Dulcolax) 5 mg PO DAILY PRN PRN Reason: Constipation Last Admin: 04/25/17 18:33 Dose: 5 mg Calcium Carbonate (Calcium Carbonate/Vitamin D 1500 Mg-200 Unit) 1 tab PO DAILY [facility] Last Admin: 04/25/17 08:17 Dose: 1 tab Cholecalciferol (Vitamin D3) 1,000 units PO DAILY [facility] Last Admin: 04/25/17 08:17 Dose: 1,000 units Cyanocobalamin (Vitamin B12) 1,000 mcg PO DAILY [facility] Last Admin: 04/25/17 08:17 Dose: 1,000 mcg Docusate Sodium (Colace) 100 mg PO BID [facility] Last Admin: 04/25/17 20:41 Dose: 100 mg Enoxaparin Sodium (Lovenox) 40 mg SUBCUT DAILY [facility] Last Admin: 04/25/17 08:19 Dose: 40 mg Folic Acid (Folic Acid) 3 mg PO DAILY [facility] Last Admin: 04/25/17 08:17 Dose: 3 mg Latanoprost (Xalatan 0.005% Ophth Soln) 0 ml EYEBOTH BEDTIME [facility] Last Admin: 04/25/17 20:38 Dose: 1 drop Levothyroxine Sodium (Synthroid) 88 mcg PO ACBREAKFAST [facility] Last Admin: 04/26/17 06:05 Dose: 88 mcg Losartan Potassium (Cozaar) 50 mg PO BID [facility] Last Admin: 04/25/17 20:41 Dose: 50 mg Metoprolol Succinate (Toprol Xl) 50 mg PO TID [facility] Last Admin: 04/25/17 20:39 Dose: 50 mg Morphine Sulfate (Morphine) 2 mg IVPUSH Q2H PRN PRN Reason: Breakthrough Pain Multivitamins (Thera) 1 each PO DAILY [facility] Last Admin: 04/25/17 08:17 Dose: 1 each Ondansetron HCl (Zofran) 4 mg IVPUSH Q6H PRN PRN Reason: Nausea/Vomiting Pantoprazole Sodium (Protonix) 40 mg PO DAILY [facility] Last Admin: 04/25/17 08:17 Dose: 40 mg Senna (Senna) 8.6 mg PO BID PRN PRN Reason: Constipation Last Admin: 04/25/17 18:33 Dose: 8.6 mg Simvastatin (Zocor) 40 mg PO BEDTIME [facility] Last Admin: 04/25/17 20:41 Dose: 40 mg Sodium Chloride (Saline Flush) 10 ml FLUSH ASDIRECTED PRN PRN Reason: Keep Vein Open Sulfasalazine (Sulfasalazine) 1,000 mg PO BID [facility] Last Admin: 04/25/17 20:41 Dose: 1,000 mg Discontinued Medications Bupivacaine HCl (Marcaine 0.25%) Confirm Administered Dose 30 ml .ROUTE .STK- MED ONE Stop: 04/23/17 06:46 Last Admin: 04/23/17 10:05 Dose: 30 ml Cefazolin Sodium (Ancef) Confirm Administered Dose 2 gm .ROUTE .STK-MED ONE Stop: 04/23/17 09:18 Cefazolin Sodium (Ancef) Confirm Administered Dose 2 gm .ROUTE .STK-MED ONE Stop: 04/23/17 10:09 Last Admin: 04/23/17 10:04 Dose: 2 gm Cefazolin Sodium (Ancef) Confirm Administered Dose 2 gm .ROUTE .STK-MED ONE Stop: 04/23/17 10:11 Dexamethasone (Dexamethasone) Confirm Administered Dose 4 mg .ROUTE .STK-MED ONE Stop: 04/23/17 07:47 Diphenhydramine HCl (Benadryl) 25 mg IVPUSH Q6H PRN PRN Reason: Pruritis Stop: 04/23/17 16:00 Ephedrine Sulfate (Ephedrine Sulfate) Confirm Administered Dose 50 mg .ROUTE .STK-MED ONE Stop: 04/23/17 10:13 Epinephrine HCl (Adrenalin) Confirm Administered Dose 1 mg .ROUTE .STK-MED ONE Stop: 04/23/17 07:14 Famotidine (Pepcid) 20 mg PO Q12H [facility] Last Admin: 04/23/17 22:04 Dose: 20 mg Famotidine (Pepcid) 20 mg PO DAILY [facility] Last Admin: 04/24/17 09:48 Dose: 20 mg Fentanyl (Sublimaze) Confirm Administered Dose 100 mcg .ROUTE .STK-MED ONE Stop: 04/23/17 07:44 Fentanyl (Sublimaze) Confirm Administered Dose 100 mcg .ROUTE .STK-MED ONE Stop: 04/23/17 09:06 Fentanyl (Sublimaze) 50 mcg IVPUSH Q5M PRN PRN Reason: Pain Stop: 04/23/17 10:47 Fentanyl (Sublimaze) Confirm Administered Dose 100 mcg .ROUTE .STK-MED ONE Stop: 04/23/17 12:09 Fentanyl (Sublimaze) Confirm Administered Dose 100 mcg .ROUTE .STK-MED ONE Stop: 04/23/17 12:52 Lactated Ringer's (Ringers, Lactated) 1,000 mls @ 125 mls/hr IV ASDIRECTED [facility] Cefazolin Sodium/Dextrose 2 gm (/ Premix) 50 mls @ 100 mls/hr IV Q8H [facility] Stop: 04/24/17 09:59 Last Admin: 04/24/17 09:49 Dose: 100 mls/hr Lidocaine HCl (Xylocaine-Mpf 1%) Confirm Administered Dose 2 mls @ as directed .ROUTE .STK-MED ONE Stop: 04/23/17 07:44 Iodine (Iodine 2% Mild Tincture) Confirm Administered Dose 30 ml .ROUTE .STK- MED ONE Stop: 04/23/17 06:46 Last Admin: 04/23/17 10:02 Dose: 18 ml Lidocaine/Sodium Bicarbonate (Buffered Lidocaine 1% In Ns 8.4%) 0.25 ml IDERM ONETIME PRN PRN Reason: Prior to IV Start Magnesium Oxide (Magnesium Oxide) 400 mg PO ONETIME ONE Stop: 04/25/17 18:05 Last Admin: 04/25/17 18:33 Dose: 400 mg Meperidine HCl (Demerol) 12.5 mg IVPUSH ONETIME PRN PRN Reason: Shivering Stop: 04/23/17 14:00 Naloxone HCl (Narcan) 0.1 mg IVPUSH Q5M PRN PRN Reason: Oversedation Non-Formulary Medication (Nystatin) 1 dose .ROUTE TID PRN PRN Reason: asdirected Ondansetron HCl (Zofran) Confirm Administered Dose 4 mg .ROUTE .STK-MED ONE Stop: 04/23/17 07:46 Ondansetron HCl (Zofran) 4 mg IVPUSH ONETIME PRN PRN Reason: Nausea/Vomiting Stop: 04/23/17 16:00 Propofol (Diprivan 20 Ml) Confirm Administered Dose 200 mg .ROUTE .STK-MED ONE Stop: 04/23/17 07:46 Ropivacaine (Naropin 0.5%) Confirm Administered Dose 30 ml .ROUTE .STK-MED ONE Stop: 04/23/17 07:14 Tranexamic Acid (Cyklokapron) Confirm Administered Dose 1,000 mg .ROUTE .STK- MED ONE Stop: 04/23/17 06:46 Last Admin: 04/23/17 10:07 Dose: 1,000 mg Vancomycin HCl (Vancomycin) Confirm Administered Dose 1 gm .ROUTE .STK-MED ONE Stop: 04/23/17 06:46 Last Admin: 04/23/17 10:07 Dose: 1 gm - Exam Wound/Incisions: Dressing Dry and Intact General: Alert, Cooperative, No Acute Distress Lungs: Normal Respiratory Effort Extremities: Other (NVS intact for BUE. No erythema, warmth at right shoulder. Active right elbow, wrist, hand motion noted. No complaints with gentle right shoulder PROM.) - Problem List Review Problem List Initiated/Reviewed/Updated: Yes - My Orders Last 24 Hours: Active Orders 24 hr Category Date Time Status Ready for Discharge [RC] PER UNIT ROUTINE Care 04/26/17 06:05 Active BASIC METABOLIC PANEL,BMP [CHEM] AM Lab 04/26/17 05:11 Ordered CBC WITH AUTO DIFF [HEME] AM Lab 04/26/17 05:11 Ordered MAGNESIUM [CHEM] AM Lab 04/26/17 05:11 Ordered Pantoprazole [ProTONIX] Med 04/25/17 09:00 Active 40 mg PO DAILY Medication Orders Hydrocodone Bitart/Acetaminophen ([place] 325-5 Mg) 1 - 2 tab PO Q4H PRN PRN Reason: Pain Last Admin: 04/25/17 08:19 Dose: 2 tab Admin: 04/24/17 19:27 Dose: 2 tab Admin: 04/24/17 06:51 Dose: 2 tab Admin: 04/23/17 22:05 Dose: 2 tab Aspirin (Aspirin) 81 mg PO DAILY [facility] Last Admin: 04/25/17 08:17 Dose: 81 mg Admin: 04/24/17 09:48 Dose: 81 mg Bisacodyl (Dulcolax) 5 mg PO DAILY PRN PRN Reason: Constipation Last Admin: 04/25/17 18:33 Dose: 5 mg Calcium Carbonate (Calcium Carbonate/Vitamin D 1500 Mg-200 Unit) 1 tab PO DAILY [facility] Last Admin: 04/25/17 08:17 Dose: 1 tab Admin: 04/24/17 09:49 Dose: 1 tab Cholecalciferol (Vitamin D3) 1,000 units PO DAILY [facility] Last Admin: 04/25/17 08:17 Dose: 1,000 units Admin: 04/24/17 09:47 Dose: 1,000 units Cyanocobalamin (Vitamin B12) 1,000 mcg PO DAILY [facility] Last Admin: 04/25/17 08:17 Dose: 1,000 mcg Admin: 04/24/17 09:49 Dose: 1,000 mcg Docusate Sodium (Colace) 100 mg PO BID [facility] Last Admin: 04/25/17 20:41 Dose: 100 mg Admin: 04/25/17 08:17 Dose: 100 mg Admin: 04/24/17 20:37 Dose: 100 mg Admin: 04/24/17 09:49 Dose: 100 mg Admin: 04/23/17 22:03 Dose: 100 mg Enoxaparin Sodium (Lovenox) 40 mg SUBCUT DAILY [facility] Last Admin: 04/25/17 08:19 Dose: 40 mg Admin: 04/24/17 09:47 Dose: 40 mg Folic Acid (Folic Acid) 3 mg PO DAILY [facility] Last Admin: 04/25/17 08:17 Dose: 3 mg Admin: 04/24/17 09:49 Dose: 3 mg Latanoprost (Xalatan 0.005% Ophth Soln) 0 ml EYEBOTH BEDTIME [facility] Last Admin: 04/25/17 20:38 Dose: 1 drop Admin: 04/24/17 20:40 Dose: 1 drop Admin: 04/23/17 22:07 Dose: 1 drop Levothyroxine Sodium (Synthroid) 88 mcg PO ACBREAKFAST [facility] Last Admin: 04/26/17 06:05 Dose: 88 mcg Admin: 04/25/17 06:21 Dose: 88 mcg Admin: 04/24/17 06:51 Dose: 88 mcg Losartan Potassium (Cozaar) 50 mg PO BID [facility] Last Admin: 04/25/17 20:41 Dose: 50 mg Admin: 04/25/17 08:18 Dose: 50 mg Admin: 04/24/17 20:38 Dose: 50 mg Admin: 04/24/17 09:47 Dose: 50 mg Admin: 04/23/17 22:03 Dose: 50 mg Metoprolol Succinate (Toprol Xl) 50 mg PO TID [facility] Last Admin: 04/25/17 20:39 Dose: 50 mg Admin: 04/25/17 17:12 Dose: 50 mg Admin: 04/25/17 08:18 Dose: 50 mg Admin: 04/24/17 20:37 Dose: 50 mg Admin: 04/24/17 14:19 Dose: 50 mg Admin: 04/24/17 09:48 Dose: 50 mg Admin: 04/23/17 22:04 Dose: 50 mg Admin: 04/23/17 16:35 Dose: 50 mg Morphine Sulfate (Morphine) 2 mg IVPUSH Q2H PRN PRN Reason: Breakthrough Pain Multivitamins (Thera) 1 each PO DAILY [facility] Last Admin: 04/25/17 08:17 Dose: 1 each Admin: 04/24/17 09:49 Dose: 1 each Ondansetron HCl (Zofran) 4 mg IVPUSH Q6H PRN PRN Reason: Nausea/Vomiting Pantoprazole Sodium (Protonix) 40 mg PO DAILY [facility] Last Admin: 04/25/17 08:17 Dose: 40 mg Senna (Senna) 8.6 mg PO BID PRN PRN Reason: Constipation Last Admin: 04/25/17 18:33 Dose: 8.6 mg Simvastatin (Zocor) 40 mg PO BEDTIME [facility] Last Admin: 04/25/17 20:41 Dose: 40 mg Admin: 04/24/17 20:37 Dose: 40 mg Admin: 04/23/17 22:05 Dose: 40 mg Sodium Chloride (Saline Flush) 10 ml FLUSH ASDIRECTED PRN PRN Reason: Keep Vein Open Sulfasalazine (Sulfasalazine) 1,000 mg PO BID [facility] Last Admin: 04/25/17 20:41 Dose: 1,000 mg Admin: 04/25/17 08:17 Dose: 1,000 mg Admin: 04/24/17 20:38 Dose: 1,000 mg Admin: 04/24/17 09:48 Dose: 1,000 mg Admin: 04/23/17 22:04 Dose: 1,000 mg - Assessment Assessment (Free Text/Narrative):: POD#2 - right reverse total shoulder arthroplasty - Plan Plan (Free Text/Narrative):: 1. Continue with current plan of care. Suspect d/c to [facility] on 04-26-2017. 2. Lovenox, TEDs, frequent mobility, SCDs for VTE prophylaxis. 3. Further orders per Hospitalist service. 4. The pt will remain in Hospital >96 hours for continued monitoring and while awaiting mcc placement. The pt's case was discussed with Dr. Morataya.
--- NOTE | 2017-04-26 06:49 | PCM.DCSUM1 ---
Discharge Summary - Hospital Course Brief History: Rhiannon is an 81 yo female who underwent right reverse TSA with Dr. Morataya on 04-23-2017. The procedure was completed under general anesthesia. The pt tolerated the procedure well and was admitted to the Medical-Surgical Unit. The pt participated in P.T. and O.T. The pt's surgical wound was dressed with a Mepilex dressing and remained clean and dry. On POD#1, the pt was started on Lovenox daily for VTE prophylaxis. The pt used TEDs and SCDs also. On POD#1, the pt's hemoglobin was 11.5. Medical management was provided by the Hospitalist service and the pt's hospital course was uneventful. On POD#3, the pt was deemed [facility] - Discharge Data Discharge Date: 18 Discharge Disposition: [facility] Condition: Good - Patient Summary/Data Consults: Consultations 03/18 06:42 Consult to Case Management [CONS] Routine Consult to Physician [CONS] Routine OT Evaluation and Treatment [CONS] Routine PT Evaluation and Treatment [CONS] Routine - Patient Instructions Diet: Usual Diet as Tolerated Activity: Apply Ice, As Tolerated, Elevate Extremity Activity, Other: No forceful use of the surgical arm. Driving: Do Not Drive Showering/Bathing: May Shower Wound/Incision Care: Keep Operative Site/Wound Site Clean and Dry, Do NOT Change Dressing Notify Provider of: Fever, Increased Pain, Swelling and Redness, Drainage, Nausea and/or Vomiting Other/Special Instructions: Please get up and moving around every hour while awake. This helps to prevent blood clots. Please have help as needed. Do the exercises you were taught in the Hospital. Have physical or occupational therapy at the [facility]. Use the pain medication as needed. The medication may cause drowsiness and constipation. Contact your primary care provider for instructions if you are constipated. You may use a stool softener like docusate sodium or Colace 100mg twice daily and/or a laxative like Miralax daily for constipation. Use the ice machine often. Have a towel between your skin and the blue cooling pad. Keep the Mepilex dressing in place until follow- up at the Clinic. Notify the Clinic if the dressing is saturated. Wear the LISA hose during the day and you may remove these at night. Eat a diet high in protein as this well help with healing. Schedule an appointment with your primary care provider for 'routine post-op care'. Call the Clinic with questions or concerns - [phone]. - Discharge Plan Prescriptions/Med Rec: Acetaminophen/HYDROcodone [[place] 325-5 MG] 1 - 2 tab PO Q4H PRN #60 tablet PRN Reason: Pain Enoxaparin [Lovenox] 40 mg SUBCUT DAILY #5 syringe Home Medications: Home Meds Cholecalciferol (Vitamin D3) [Vitamin D3] 1,000 unit PO DAILY 02/03/16 [History] Cyanocobalamin (Vitamin B-12) [B-12] 1,000 mcg PO DAILY 02/03/16 [History] Latanoprost [Xalatan 0.005% Ophth Soln] 1 drop EYEBOTH BEDTIME 02/03/16 [History ] Losartan [Cozaar] 50 mg PO BID 02/03/16 [History] Methotrexate 7 tab PO WEEKLY 02/03/16 [History] Metoprolol Succinate 50 mg PO TID 02/03/16 [History] Omeprazole 20 mg PO DAILY 02/03/16 [History] Prednisone [IJD: Prednisone] 10 mg PO SADLER 02/03/16 [History] Simvastatin [Zocor] 40 mg PO BEDTIME 02/03/16 [History] sulfaSALAzine 1,000 mg PO BID 02/03/16 [History] Aspirin 81 mg PO DAILY 04/20/17 [History] Calcium Carbonate/Vitamin D3 [Calcium 600-Vit D3 400 Tablet] 1 tab PO DAILY 04/08 [History] Fish Oil/DHA/EPA [Fish Oil 1,200 MG] 1,200 mg PO DAILY 04/20/17 [History] Folic Acid 3 mg PO DAILY 04/20/17 [History] Levothyroxine [Synthroid] 88 mcg PO DAILY 04/20/17 [History] Lutein/Minerals/Vit A,C & E [Ocuvite] 1 tab PO DAILY 04/20/17 [History] Multivitamin [Daily Multiple Vitamin] 1 tab PO DAILY 04/20/17 [History] Nystatin 1 dose .ROUTE TID PRN 04/20/17 [History] Acetaminophen/HYDROcodone [[place] 325-5 MG] 1 - 2 tab PO Q4H PRN #60 tablet 04/26 [Rx] Bisacodyl [Dulcolax] 5 mg PO DAILY PRN tablet 04/26/17 [Rx] Docusate Sodium [Colace] 100 mg PO BID cap 04/26/17 [Rx] Enoxaparin [Lovenox] 40 mg SUBCUT DAILY #5 syringe 04/26/17 [Rx] Sennosides [Senna] 8.6 mg PO BID PRN tablet 04/26/17 [Rx] Referrals: Claudette Delvalle PA-C [Phys[facility]] - (Check with your doctor about having a TDaP vaccine.) - Patient Data Vitals - Most Recent: Last Vital Signs Temp 99.9 F 04/26/17 03:04 Pulse 73 04/26/17 03:04 Resp 16 04/26/17 03:04 BP 127/65 04/26/17 03:04 Pulse Ox 90 L 04/26/17 03:04 Weight - Most Recent: 197 lb 9.6 oz I&O - Last 24 hours: Intake & Output 04/25/17 04/25/17 04/26/17 14:59 22:59 06:59 Intake Total 120 1280 500 Balance 120 1280 500 Lab Results - Last 24 hrs: Laboratory Results - last 24 hr 04/25/17 04/25/17 Range/Units 09:12 09:12 WBC 7.75 (3.98-10.04) K/mm3 RBC 4.10 (3.98-5.22) M/mm3 Hgb 11.8 (11.2-15.7) gm/L Hct 36.7 (34.1-44.9) % MCV 89.5 (79.4-94.8) fl MCH 28.8 (25.6-32.2) pg MCHC 32.2 (32.2-35.5) g/dl RDW Std Deviation 50.1 H (36.4-46.3) fL Plt Count 148 L (182-369) K/mm3 MPV 11.8 (9.4-12.3) fl Neut % (Auto) 71.8 H (34.0-71.1) % Lymph % (Auto) 17.9 L (19.3-51.7) % Real % (Auto) 9.2 (4.7-12.5) % Eos % (Auto) 0.4 L (0.7-5.8) Baso % (Auto) 0.4 (0.1-1.2) % Neut # (Auto) 5.57 (1.56-6.13) K/mm3 Lymph # (Auto) 1.39 (1.18-3.74) K/mm3 Real # (Auto) 0.71 H (0.24-0.36) K/mm3 Eos # (Auto) 0.03 L (0.04-0.36) K/mm3 Baso # (Auto) 0.03 (0.01-0.08) K/mm3 Sodium 141 (136-145) mEq/L Potassium 3.6 (3.5-5.1) mEq/L Chloride 107 (98-107) mEq/L Carbon Dioxide 25 (21-32) mEq/L Anion Gap 12.6 (5-15) BUN 18 (7-18) mg/dL Creatinine 1.1 H (0.55-1.02) mg/dL Est Cr Clr Drug Dosing 29.75 mL/min Estimated GFR (MDRD) 48 (>60) mL/min BUN/Creatinine Ratio 16.4 (14-18) Glucose 138 H (83-115) mg/dL Calcium 9.4 (8.5-10.1) mg/dL Magnesium 1.7 L (1.8-2.4) mg/dl Med Orders - Current: Current Medications Hydrocodone Bitart/Acetaminophen ([place] 325-5 Mg) 1 - 2 tab PO Q4H PRN PRN Reason: Pain Last Admin: 04/25/17 08:19 Dose: 2 tab Aspirin (Aspirin) 81 mg PO DAILY [facility] Last Admin: 04/25/17 08:17 Dose: 81 mg Bisacodyl (Dulcolax) 5 mg PO DAILY PRN PRN Reason: Constipation Last Admin: 04/25/17 18:33 Dose: 5 mg Calcium Carbonate (Calcium Carbonate/Vitamin D 1500 Mg-200 Unit) 1 tab PO DAILY [facility] Last Admin: 04/25/17 08:17 Dose: 1 tab Cholecalciferol (Vitamin D3) 1,000 units PO DAILY [facility] Last Admin: 04/25/17 08:17 Dose: 1,000 units Cyanocobalamin (Vitamin B12) 1,000 mcg PO DAILY [facility] Last Admin: 04/25/17 08:17 Dose: 1,000 mcg Docusate Sodium (Colace) 100 mg PO BID [facility] Last Admin: 04/25/17 20:41 Dose: 100 mg Enoxaparin Sodium (Lovenox) 40 mg SUBCUT DAILY [facility] Last Admin: 04/25/17 08:19 Dose: 40 mg Folic Acid (Folic Acid) 3 mg PO DAILY [facility] Last Admin: 04/25/17 08:17 Dose: 3 mg Latanoprost (Xalatan 0.005% Ophth Soln) 0 ml EYEBOTH BEDTIME [facility] Last Admin: 04/25/17 20:38 Dose: 1 drop Levothyroxine Sodium (Synthroid) 88 mcg PO ACBREAKFAST [facility] Last Admin: 04/26/17 06:05 Dose: 88 mcg Losartan Potassium (Cozaar) 50 mg PO BID [facility] Last Admin: 04/25/17 20:41 Dose: 50 mg Metoprolol Succinate (Toprol Xl) 50 mg PO TID [facility] Last Admin: 04/25/17 20:39 Dose: 50 mg Morphine Sulfate (Morphine) 2 mg IVPUSH Q2H PRN PRN Reason: Breakthrough Pain Multivitamins (Thera) 1 each PO DAILY [facility] Last Admin: 04/25/17 08:17 Dose: 1 each Ondansetron HCl (Zofran) 4 mg IVPUSH Q6H PRN PRN Reason: Nausea/Vomiting Pantoprazole Sodium (Protonix) 40 mg PO DAILY [facility] Last Admin: 04/25/17 08:17 Dose: 40 mg Senna (Senna) 8.6 mg PO BID PRN PRN Reason: Constipation Last Admin: 04/25/17 18:33 Dose: 8.6 mg Simvastatin (Zocor) 40 mg PO BEDTIME [facility] Last Admin: 04/25/17 20:41 Dose: 40 mg Sodium Chloride (Saline Flush) 10 ml FLUSH ASDIRECTED PRN PRN Reason: Keep Vein Open Sulfasalazine (Sulfasalazine) 1,000 mg PO BID [facility] Last Admin: 04/25/17 20:41 Dose: 1,000 mg Discontinued Medications Bupivacaine HCl (Marcaine 0.25%) Confirm Administered Dose 30 ml .ROUTE .[facility]- MED ONE Stop: 04/23/17 06:46 Last Admin: 04/23/17 10:05 Dose: 30 ml Cefazolin Sodium (Ancef) Confirm Administered Dose 2 gm .ROUTE .STK-MED ONE Stop: 04/23/17 09:18 Cefazolin Sodium (Ancef) Confirm Administered Dose 2 gm .ROUTE .STK-MED ONE Stop: 04/23/17 10:09 Last Admin: 04/23/17 10:04 Dose: 2 gm Cefazolin Sodium (Ancef) Confirm Administered Dose 2 gm .ROUTE .STK-MED ONE Stop: 04/23/17 10:11 Dexamethasone (Dexamethasone) Confirm Administered Dose 4 mg .ROUTE .STK-MED ONE Stop: 04/23/17 07:47 Diphenhydramine HCl (Benadryl) 25 mg IVPUSH Q6H PRN PRN Reason: Pruritis Stop: 04/23/17 16:00 Ephedrine Sulfate (Ephedrine Sulfate) Confirm Administered Dose 50 mg .ROUTE .ST-MED ONE Stop: 04/23/17 10:13 Epinephrine HCl (Adrenalin) Confirm Administered Dose 1 mg .ROUTE .ST-MED ONE Stop: 04/23/17 07:14 Famotidine (Pepcid) 20 mg PO Q12H [facility] Last Admin: 04/23/17 22:04 Dose: 20 mg Famotidine (Pepcid) 20 mg PO DAILY [facility] Last Admin: 04/24/17 09:48 Dose: 20 mg Fentanyl (Sublimaze) Confirm Administered Dose 100 mcg .ROUTE .STK-MED ONE Stop: 04/23/17 07:44 Fentanyl (Sublimaze) Confirm Administered Dose 100 mcg .ROUTE .STK-MED ONE Stop: 04/23/17 09:06 Fentanyl (Sublimaze) 50 mcg IVPUSH Q5M PRN PRN Reason: Pain Stop: 04/23/17 10:47 Fentanyl (Sublimaze) Confirm Administered Dose 100 mcg .ROUTE .STK-MED ONE Stop: 04/23/17 12:09 Fentanyl (Sublimaze) Confirm Administered Dose 100 mcg .ROUTE .STK-MED ONE Stop: 04/23/17 12:52 Lactated Ringer's (Ringers, Lactated) 1,000 mls @ 125 mls/hr IV ASDIRECTED [facility] Cefazolin Sodium/Dextrose 2 gm (/ Premix) 50 mls @ 100 mls/hr IV Q8H [facility] Stop: 04/24/17 09:59 Last Admin: 04/24/17 09:49 Dose: 100 mls/hr Lidocaine HCl (Xylocaine-Mpf 1%) Confirm Administered Dose 2 mls @ as directed .ROUTE .STK-MED ONE Stop: 04/23/17 07:44 Iodine (Iodine 2% Mild Tincture) Confirm Administered Dose 30 ml .ROUTE .STK- MED ONE Stop: 04/23/17 06:46 Last Admin: 04/23/17 10:02 Dose: 18 ml Lidocaine/Sodium Bicarbonate (Buffered Lidocaine 1% In Ns 8.4%) 0.25 ml IDERM ONETIME PRN PRN Reason: Prior to IV Start Magnesium Oxide (Magnesium Oxide) 400 mg PO ONETIME ONE Stop: 04/25/17 18:05 Last Admin: 04/25/17 18:33 Dose: 400 mg Meperidine HCl (Demerol) 12.5 mg IVPUSH ONETIME PRN PRN Reason: Shivering Stop: 04/23/17 14:00 Naloxone HCl (Narcan) 0.1 mg IVPUSH Q5M PRN PRN Reason: Oversedation Non-Formulary Medication (Nystatin) 1 dose .ROUTE TID PRN PRN Reason: asdirected Ondansetron HCl (Zofran) Confirm Administered Dose 4 mg .ROUTE .STK-MED ONE Stop: 04/23/17 07:46 Ondansetron HCl (Zofran) 4 mg IVPUSH ONETIME PRN PRN Reason: Nausea/Vomiting Stop: 04/23/17 16:00 Propofol (Diprivan 20 Ml) Confirm Administered Dose 200 mg .ROUTE .STK-MED ONE Stop: 04/23/17 07:46 Ropivacaine (Naropin 0.5%) Confirm Administered Dose 30 ml .ROUTE .STK-MED ONE Stop: 04/23/17 07:14 Tranexamic Acid (Cyklokapron) Confirm Administered Dose 1,000 mg .ROUTE .STK- MED ONE Stop: 04/23/17 06:46 Last Admin: 04/23/17 10:07 Dose: 1,000 mg Vancomycin HCl (Vancomycin) Confirm Administered Dose 1 gm .ROUTE .STK-MED ONE Stop: 04/23/17 06:46 Last Admin: 04/23/17 10:07 Dose: 1 gm *Q Meaningful Use (DIS) - VTE *Q VTE Criteria *Q: - Stroke *Q Stroke Criteria *Q: - AMI *Q AMI Criteria *Q:
[2017-04-26] MEDS: sulfaSALAzine 500 MG Tab PO SCH (08:18)
[2017-04-26] MEDS: Cyanocobalamin (Vitamin B12) 1,000 MCG Tab PO SCH (08:18)
[2017-04-26] MEDS: Metoprolol Succinate 50 MG Tab.ER PO SCH (08:18)
[2017-04-26] MEDS: Enoxaparin 40 MG/0.4 ML Syringe SUBCUT SCH (08:18)
[2017-04-26] MEDS: Folic Acid 1 MG Tab PO SCH (08:18)
[2017-04-26] MEDS: Calcium Carbonate/Vitamin D3 600 MG-200 Units Tab PO SCH (08:18)
[2017-04-26] MEDS: Cholecalciferol (Vitamin D3) 1,000 Unit Tab PO SCH (08:18)
[2017-04-26] MEDS: Losartan 25 MG Tab PO SCH (08:18)
[2017-04-26] MEDS: Aspirin 81 MG Tab.Chew PO SCH (08:19)
[2017-04-26] MEDS: Pantoprazole 40 MG Tab.CR PO SCH (08:19)
[2017-04-26] MEDS: Multivitamins,Therapeutic Tab PO SCH (08:19)
[2017-04-26] MEDS: Docusate Sodium 100 MG Cap PO SCH (08:19)
[2017-04-26 08:20] VITALS: BP 125/45
--- NOTE | 2017-05-03 09:31 | PCM.OPNOTE ---
- General Post-Op/Procedure Note Date of Surgery/Procedure: 04/23/17 Operative Procedure(s): right reverse total shoulder arthroplasty Pre Op Diagnosis: right shoulder rotator cuff tear arthropathy Post-Op Diagnosis: Same Anesthesia Technique: General ET Tube, Regional Block Primary Surgeon: Eugene Morataya Anesthesia Provider: Cas Lopez Ranch Supervisor: Claudette Delvalle Ranch Supervisor: Michelle Méndez EBL in mLs: 300 Complications: None Condition: Good Free Text/Narrative:: size 8 stem small 36+3
--- NOTE | 2017-05-08 07:57 | OR ---
DATE OF OPERATION: 04/23/2017 SURGEON: Eugene Morataya MD OPERATION PERFORMED: Right reverse total shoulder arthroplasty. PREOPERATIVE DIAGNOSIS: Right shoulder rotator cuff tear arthropathy. POSTOPERATIVE DIAGNOSIS: Right shoulder rotator cuff tear arthropathy. ANESTHESIA: General endotracheal intubation with regional interscalene block. ANESTHESIA PROVIDER: Cas Lopez. ASSISTANTS: 1. Claudette Delvalle PA-C. 2. Michelle Méndez LPN. ESTIMATED BLOOD LOSS: 300 mL. COMPLICATIONS: None. CONDITION: Stable. IMPLANTS: 1. Arthrex size 8 humeral stem. 2. Arthrex small glenoid baseplate. 3. Arthrex 36 +4 Glenosphere. 4. Arthrex 36 +3 mm polyethylene liner. 5. 135-degree neck angle. DESCRIPTION OF PROCEDURE: The patient was identified in the preop holding area. Proper site was marked and identified by the surgeon. The patient was taken back to the operating theater where after adequate anesthesia, the patient's right upper extremity was sterilely prepped and draped in the usual sterile fashion. OR time-out was performed. The patient received 2 g IV Ancef. At this time, attention was turned to the deltopectoral interval, incision was made, this was taken down to the deltopectoral interval and the cephalic vein was retracted laterally. Subdeltoid adhesions were resected at this time. The clavipectoral fascia was opened and the conjoined tendon was retracted medially. At this time, the anterior humeral circumflex vessels were tied using an 0 Vicryl stick tie. The biceps tendon was then identified and subpectoral tenodesis was then performed. Campbell scissors was then used for opening of the bicipital groove all the way to the level of the glenoid and the excess biceps tendon was removed. A takedown of the subscapularis tendon was then done all the way down through the humeral neck and the capsule was then released off the humeral neck. At this time, the humerus had good exposure. Guidepin was placed down the canal. Starter reamer was then placed and then the cutting guide was placed for reverse total shoulder arthroplasty in 30 degrees of retroversion. Cut was made. It was found to be adequate. Attention was turned to the glenoid. Anterior and posterior retractors were then placed and removal of the labrum as well as capsule was done from the glenoid. At this time, guidepin was placed in a center-center position. The central drill hole was then drilled. The small reamer was then placed and was reamed and was found to have adequate purchase. At this time, a small glenoid baseplate was impacted into place in the proper rotation and a central locking screw was placed and central lag screw was placed and then inferior and superior locking screws were placed. It was found to have adequate fixation. At this time, attention was turned back to the humerus. Starting with the 5 broach, I was able to broach up to a size 8 which was found to be rotationally and vertically stable. The trial components were 135-degree neck angle were then constructed on the back table with 3-mm poly. At this time, the real 36 +4 glenoid was impacted into place and the trial components were placed. The patient's shoulder was brought through range of motion, there were no signs of instability, the patient had full range of motion. At this time, the shoulder was dislocated, the trial humeral stem was removed, and the size 8 Arthrex stem with 135-degree plus 3 mm polyethylene was constructed on the back table and then impacted into the humerus. At this time, the patient's shoulder was relocated and was found to be stable throughout range of motion. C-arm fluoroscopy was used and showing all the components in good position. At this time, 1 L of dilute Betadine solution along with 3 L pulse lavage irrigation with Ancef were irrigated through the shoulder. Topical vancomycin powder and topical tranexamic acid were placed in the wound. At this time, the deltopectoral interval was tagged using #2 FiberWire. 2-0 Vicryl was used subcutaneously and a running Monocryl with Prineo was used for the skin. The patient tolerated the procedure well and sent to PACU in stable condition. MMODAL /[id number]
== END 2017-04-26 13:15 | DRG 483 ==
LOC: JD.MS 04-23 06:30
PROVIDERS: ADMIT Orthopaedic Surgery; ATTEND Orthopaedic Surgery
PROC: 0RRJ00Z Replacement of Right Shoulder Joint with Reverse Ball and Socket Synthetic Substitute, Open Approach (ICD-10-PCS; principal; 2017-04-23)
DX: M19.011 Primary osteoarthritis, right shoulder (principal); I25.10 Atherosclerotic heart disease of native coronary artery without angina pectoris; I12.9 Hypertensive chronic kidney disease with stage 1 through stage 4 chronic kidney disease, or unspecified chronic kidney disease; N18.3 Chronic kidney disease, stage 3 (moderate); E78.5 Hyperlipidemia, unspecified; K21.9 Gastro-esophageal reflux disease without esophagitis; Z95.0 Presence of cardiac pacemaker; E03.9 Hypothyroidism, unspecified; Z86.73 Personal history of transient ischemic attack (TIA), and cerebral infarction without residual deficits; Z79.899 Other long term (current) drug therapy; Z79.82 Long term (current) use of aspirin
CPT/HCPCS: 01638; 36415; 64415; 73020-26-RT; 73020-RT; 76000; 76000-26; 80048; 80053; 83735; 85025; 85027; 87641; 97110-GP; 97116-GP; 97140-GP; 97161-GP; 97162-GP; 97165-GO; 97535-GO; A9270-GY; C1713; C1776; J0171; J0690; J1100; J1650; J2001; J2405; J2704; J2795; J3010; J3370; J3490

== ENCOUNTER 2018-03-03 14:20 | Emergency (ER) | payer MEDICARE, OTHER, MEDICAID ==
[2018-03-03 14:37] VITALS: BP 180/70
--- NOTE | 2018-03-03 15:39 | EDM.PDOC ---
<Ana Maria Ayers - Last Filed: 03/03/18 15:46> ED HPI GENERAL MEDICAL PROBLEM - General Chief Complaint: Cardiovascular Problem Stated Complaint: HIGH BLOOD PRESSURE Time Seen by Provider: 03/03/18 15:07 Source of Information: Reports: Patient, Family History Limitations: Reports: No Limitations - History of Present Illness INITIAL COMMENTS - FREE TEXT/NARRATIVE: Rhiannon is a 82 year old female who presents today with a concern of high blood pressure and feeling dizzy this morning. She is accompanied by her daughter. Patient states that she woke up at 3am this morning and used the restroom and felt unsteady while transferring to the bathroom and back to bed, but went back to sleep. She then woke at 7:10am and felt dizzy and unsteady. She states that she "just didn't feel right". She then took a shower, though was scared to, and sat on a shower chair. She felt unsteady and weak while drying herself off. She felt like she needed to use a hand rail to steady herself, and that the room is spinning. She then took her blood pressure with her wrist cuff and at 11:30 was 138/61, 12:30 was 159/75, and at 1:15 was 176/90. She then decided to come to the ED to be evaluated. She denies any fever, chills, nightsweats. She has no cough, chest pain, shortness of breath. Denies any nausea, vomiting or diarrhea. She has no numbness, tingling or unilateral weakness. She also complains of some lower extremity edema, that is unchanged for the past few months. She does not wear her compression stockings. She states that she has a history of vertigo and this was treated with PT. - Related Data Allergies Allergy/AdvReac Type Severity Reaction Status Date / Time No Known Allergies Allergy Verified 03/03/18 14:37 Home Meds: Home Meds Cholecalciferol (Vitamin D3) [Vitamin D3] 1,000 unit PO DAILY 02/03/16 [History] Cyanocobalamin (Vitamin B-12) [B-12] 1,000 mcg PO DAILY 02/03/16 [History] Latanoprost [Xalatan 0.005% Ophth Soln] 1 drop EYEBOTH BEDTIME 02/03/16 [History ] Losartan [Cozaar] 50 mg PO BID 02/03/16 [History] Methotrexate 7 tab PO WEEKLY 02/03/16 [History] Metoprolol Succinate 50 mg PO TID 02/03/16 [History] Omeprazole 20 mg PO DAILY 02/03/16 [History] Prednisone [IJD: Prednisone] 10 mg PO SADLER 02/03/16 [History] Simvastatin [Zocor] 40 mg PO BEDTIME 02/03/16 [History] sulfaSALAzine 1,000 mg PO BID 02/03/16 [History] Aspirin 81 mg PO DAILY 04/20/17 [History] Calcium Carbonate/Vitamin D3 [Calcium 600-Vit D3 400 Tablet] 1 tab PO DAILY 04/08 [History] Fish Oil/DHA/EPA [Fish Oil 1,200 MG] 1,200 mg PO DAILY 04/20/17 [History] Folic Acid 3 mg PO DAILY 04/20/17 [History] Levothyroxine [Synthroid] 88 mcg PO DAILY 04/20/17 [History] Lutein/Minerals/Vit A,C & E [Ocuvite] 1 tab PO DAILY 04/20/17 [History] Multivitamin [Daily Multiple Vitamin] 1 tab PO DAILY 04/20/17 [History] Nystatin 1 applic TOP TID PRN 04/20/17 [History] Acetaminophen/HYDROcodone [[place] 325-5 MG] 1 - 2 tab PO Q4H PRN #60 tablet 04/26 [Rx] Bisacodyl [Dulcolax] 5 mg PO DAILY PRN tablet 04/26/17 [Rx] Docusate Sodium [Colace] 100 mg PO BID cap 04/26/17 [Rx] Enoxaparin [Lovenox] 40 mg SUBCUT DAILY #5 syringe 04/26/17 [Rx] Sennosides [Senna] 8.6 mg PO BID PRN tablet 04/26/17 [Rx] Meclizine [Antivert] 12.5 mg PO TID PRN #10 tab 03/03/18 [Rx] Past Medical History HEENT History: Reports: Glaucoma, Macular Degeneration Other HEENT History: Ringing to ears frequently, sore throat, lower partial, wears glasses, impacted cerumen Cardiovascular History: Reports: Blood Clots/VTE/DVT, CAD, High Cholesterol, Hypertension, Pacemaker, Other (See Below) Respiratory History: Reports: Other (See Below) Other Respiratory History: cough, bronchitis, pharyngitis, pleural fluid removal Gastrointestinal History: Reports: GERD, Other (See Below) Other Gastrointestinal History: Barrettes esophagus, colon surgery Genitourinary History: Reports: Chronic Renal Insuffiency 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: Musculoskeletal History: Reports: Arthritis Neurological History: Reports: CVA Other Neuro History: left sided weakness Psychiatric History: Reports: None Endocrine/Metabolic History: Reports: Hypothyroidism Hematologic History: Reports: None Immunologic History: Reports: None Oncologic (Cancer) History: Reports: Colon Dermatologic History: Reports: Other (See Below) Other Dermatologic History: candidiasis, seborrheic keratosis - Infectious Disease History Infectious Disease History: Reports: Measles, Mumps, Rubella, Shingles - Past Surgical History Head Surgeries/Procedures: Reports: None HEENT Surgical History: Reports: Cataract Surgery Cardiovascular Surgical History: Reports: Pacer Respiratory Surgical History: Reports: None GI Surgical History: Reports: Colonoscopy Female Surgical History: Reports: Tubal Ligation Endocrine Surgical History: Reports: None Neurological Surgical History: Reports: Other (See Below) Other Neurological Surgeries/Procedures: low back surgery Musculoskeletal Surgical History: Reports: Other (See Below), Shoulder Surgery Other Musculoskeletal Surgeries/Procedures:: L rotator cuff surgery, Back surgery to repair ruptured discs Oncologic Surgical History: Reports: None Social & Family History - Family History Family Medical History: Noncontributory - Tobacco Use Smoking Status *Q: Never Smoker - Caffeine Use Caffeine Use: Reports: Coffee - Recreational Drug Use Recreational Drug Use: No ED ROS GENERAL - Review of Systems Review Of Systems: ROS reveals no pertinent complaints other than HPI. ED EXAM, GENERAL - Physical Exam Exam: See Below Exam Limited By: No Limitations General Appearance: Alert, WD/WN, No Apparent Distress Eye Exam: Bilateral Eye: Normal Inspection Ears: Hearing Grossly Normal, Normal TMs, Other (cerumen in canals bilaterally, not impacted or obstructed. ) Head: Atraumatic, Normocephalic Neck: Normal Inspection, Supple, Non-Tender, Full Range of Motion. No: Carotid Bruit, Lymphadenopathy (L), Lymphadenopathy (R) Respiratory/Chest: No Respiratory Distress, Lungs Clear, Normal Breath Sounds Cardiovascular: Normal Peripheral Pulses, Regular Rate, Rhythm Peripheral Pulses: 2+: Dorsalis Pedis (L), Dorsalis Pedis (R), 4+: Radial (L), Radial (R) GI/Abdominal: Soft, Non-Tender, No Distention Neurological: Alert, Oriented, CN II-XII Intact, Normal Cognition, No Motor/ Sensory Deficits Skin Exam: Warm, Dry, Intact Course - Vital Signs Last Recorded V/S: Last Vital Signs Temp 97.8 F 03/03/18 14:27 Pulse 74 03/03/18 14:27 Resp 22 H 03/03/18 14:27 BP 180/70 H 03/03/18 14:27 Pulse Ox 95 03/03/18 14:27 Orthostatic Blood Pressure [ 163/74 Standing] Orthostatic Blood Pressure [ 165/69 Sitting] Orthostatic Blood Pressure [ 158/62 Supine] - Orders/Labs/Meds Labs: Laboratory Tests 03/03/18 03/03/18 03/03/18 Range/Units 16:25 16:25 16:25 WBC 4.92 (3.98-10.04) K/mm3 RBC 4.38 (3.98-5.22) M/mm3 Hgb 13.1 (11.2-15.7) gm/L Hct 39.8 (34.1-44.9) % MCV 90.9 (79.4-94.8) fl MCH 29.9 (25.6-32.2) pg MCHC 32.9 (32.2-35.5) g/dl RDW Std Deviation 49.4 H (36.4-46.3) fL Plt Count 155 L (182-369) K/mm3 MPV 11.2 (9.4-12.3) fl Neut % (Auto) 62.0 (34.0-71.1) % Lymph % (Auto) 29.3 (19.3-51.7) % Leslie % (Auto) 7.9 (4.7-12.5) % Eos % (Auto) 0.2 L (0.7-5.8) Baso % (Auto) 0.4 (0.1-1.2) % Neut # (Auto) 3.05 (1.56-6.13) K/mm3 Lymph # (Auto) 1.44 (1.18-3.74) K/mm3 Leslie # (Auto) 0.39 H (0.24-0.36) K/mm3 Eos # (Auto) 0.01 L (0.04-0.36) K/mm3 Baso # (Auto) 0.02 (0.01-0.08) K/mm3 Sodium 143 (136-145) mEq/L Potassium 3.9 (3.5-5.1) mEq/L Chloride 109 H (98-107) mEq/L Carbon Dioxide 22 (21-32) mEq/L Anion Gap 15.9 H (5-15) BUN 19 H (7-18) mg/dL Creatinine 0.9 (0.55-1.02) mg/dL Est Cr Clr Drug Dosing 35.74 mL/min Estimated GFR (MDRD) 60 (>60) mL/min BUN/Creatinine Ratio 21.1 H (14-18) Glucose 114 (83-115) mg/dL Calcium 10.1 (8.5-10.1) mg/dL Magnesium 1.8 (1.8-2.4) mg/dl Total Bilirubin 0.5 (0.2-1.0) mg/dL AST 12 L (15-37) U/L ALT 23 (14-59) U/L Alkaline Phosphatase 76 (46-116) U/L Total Protein 7.2 (6.4-8.2) g/dl Albumin 3.6 (3.4-5.0) g/dl Globulin 3.6 gm/dL Albumin/Globulin Ratio 1.0 (1-2) Urine Color (Yellow) Urine Appearance (Clear) Urine pH (5.0-8.0) Ur Specific Hilliard (1.005-1.030) Urine Protein (Negative) Urine Glucose (UA) (Negative) Urine Ketones (Negative) Urine Occult Blood (Negative) Urine Nitrite (Negative) Urine Bilirubin (Negative) Urine Urobilinogen (0.2-1.0) Ur Leukocyte Esterase (Negative) Urine RBC (0-5) /hpf Urine WBC (0-5) /hpf Ur Epithelial Cells (0-5) /hpf Urine Bacteria (FEW) /hpf Urine Mucus (FEW) /hpf 03/03/18 Range/Units 17:42 WBC (3.98-10.04) K/mm3 RBC (3.98-5.22) M/mm3 Hgb (11.2-15.7) gm/L Hct (34.1-44.9) % MCV (79.4-94.8) fl MCH (25.6-32.2) pg MCHC (32.2-35.5) g/dl RDW Std Deviation (36.4-46.3) fL Plt Count (182-369) K/mm3 MPV (9.4-12.3) fl Neut % (Auto) (34.0-71.1) % Lymph % (Auto) (19.3-51.7) % Leslie % (Auto) (4.7-12.5) % Eos % (Auto) (0.7-5.8) Baso % (Auto) (0.1-1.2) % Neut # (Auto) (1.56-6.13) K/mm3 Lymph # (Auto) (1.18-3.74) K/mm3 Leslie # (Auto) (0.24-0.36) K/mm3 Eos # (Auto) (0.04-0.36) K/mm3 Baso # (Auto) (0.01-0.08) K/mm3 Sodium (136-145) mEq/L Potassium (3.5-5.1) mEq/L Chloride (98-107) mEq/L Carbon Dioxide (21-32) mEq/L Anion Gap (5-15) BUN (7-18) mg/dL Creatinine (0.55-1.02) mg/dL Est Cr Clr Drug Dosing mL/min Estimated GFR (MDRD) (>60) mL/min BUN/Creatinine Ratio (14-18) Glucose (83-115) mg/dL Calcium (8.5-10.1) mg/dL Magnesium (1.8-2.4) mg/dl Total Bilirubin (0.2-1.0) mg/dL AST (15-37) U/L ALT (14-59) U/L Alkaline Phosphatase (46-116) U/L Total Protein (6.4-8.2) g/dl Albumin (3.4-5.0) g/dl Globulin gm/dL Albumin/Globulin Ratio (1-2) Urine Color Yellow (Yellow) Urine Appearance Clear (Clear) Urine pH 6.0 (5.0-8.0) Ur Specific [place] 1.020 (1.005-1.030) Urine Protein Negative (Negative) Urine Glucose (UA) Negative (Negative) Urine Ketones Negative (Negative) Urine Occult Blood Negative (Negative) Urine Nitrite Negative (Negative) Urine Bilirubin Negative (Negative) Urine Urobilinogen 0.2 (0.2-1.0) Ur Leukocyte Esterase 1+ H (Negative) Urine RBC 0-5 (0-5) /hpf Urine WBC 10-20 H (0-5) /hpf Ur Epithelial Cells 5-10 H (0-5) /hpf Urine Bacteria Few (FEW) /hpf Urine Mucus Few (FEW) /hpf Meds: Medications Discontinued Medications Generic Name Dose Route Start Last Admin Trade Name Freq PRN Reason Stop Dose Admin Meclizine HCl 12.5 mg 03/03/18 18:53 03/03/18 18:57 Antivert PO 03/03/18 18:54 12.5 mg ONETIME ONE Administration Departure - Departure Disposition: Home, Self-Care 01 Clinical Impression: Vertigo Prescriptions: Meclizine [Antivert] 12.5 mg PO TID PRN #10 tab PRN Reason: Dizziness Instructions: Vertigo, [id number] Referrals: Karen Cortez PA [Primary Care Provider] - Forms: ED Department Discharge Additional Instructions: Meclizine 1 tab 3 times a day as needed for dizziness. make sure you are drinking plenty of fluids. Follow-up with your primary care provider this week for recheck of your symptoms. Please return to the ER if your symptoms change or worsen. <Eula Iniguez - Last Filed: 03/06/18 12:20> ED HPI GENERAL MEDICAL PROBLEM - History of Present Illness INITIAL COMMENTS - FREE TEXT/NARRATIVE: I have seen the patient and agree with the HPI as documented by LIANE Tyler. ED ROS GENERAL - Review of Systems Review Of Systems: See Below Constitutional: Denies: Fever, Chills HEENT: Denies: Ear Pain Respiratory: Denies: Shortness of Breath Cardiovascular: Denies: Chest Pain GI/Abdominal: Denies: Abdominal Pain, Hematochezia, Melena, Nausea, Vomiting Neurological: Reports: Dizziness. 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 No acute changes noted. Reviewed by myself and Dr. Rosa. Course - Orders/Labs/Meds Meds: Medications Discontinued Medications Generic Name Dose Route Start Last Admin Trade Name Freq PRN Reason Stop Dose Admin Meclizine HCl 12.5 mg 03/03/18 18:53 03/03/18 18:57 Antivert PO 03/03/18 18:54 12.5 mg ONETIME ONE Administration - Radiology Interpretation Free Text/Narrative:: Chest: Portable view of the chest was obtained. Comparison: Prior chest x-ray of 03/30/17. Right shoulder prosthesis is seen. Pacemaker is noted. Heart is mildly enlarged. Tortuous thoracic aorta is seen. Lungs are clear with no acute parenchymal change. Bony structures show nothing acute. Impression: 1. Slight cardiomegaly. Other incidental findings. Nothing acute is appreciated on portable chest x-ray. - Re-Assessments/Exams Free Text/Narrative Re-Assessment/Exam: 03/03/18 18:33 I have seen the patient and agree with the HPI, ROS and PE as documented by LIANE Tyler I reviewed the labs, ekg and imaging with the patient and her daughter . Her blood pressure has come down to the 140s to 130s systolic without intervention. I believe she is having some vertigo which caused her anxiety and elevated b/p. Discussed management with PT if not improving. No need for b/p intervention today. discharge instructions as documented. Departure - Departure Time of Disposition: 18:35 Condition: Good
[2018-03-03] MEDS ORDERED: Meclizine 12.5 MG Tab PO ONE (18:53)
--- NOTE | 2018-03-04 07:58 | CR ---
Chest: Portable view of the chest was obtained. Comparison: Prior chest x-ray of 03/30/17. Right shoulder prosthesis is seen. Pacemaker is noted. Heart is mildly enlarged. Tortuous thoracic aorta is seen. Lungs are clear with no acute parenchymal change. Bony structures show nothing acute. Impression: 1. Slight cardiomegaly. Other incidental findings. Nothing acute is appreciated on portable chest x-ray. Diagnostic code #2
== END 2018-03-03 18:59 | disposition home or self-care (01) ==
LOC: JD.ED 14:20
DX: R42 Dizziness and giddiness (principal); I10 Essential (primary) hypertension; I51.7 Cardiomegaly; I12.9 Hypertensive chronic kidney disease with stage 1 through stage 4 chronic kidney disease, or unspecified chronic kidney disease; N18.9 Chronic kidney disease, unspecified; E78.00 Pure hypercholesterolemia, unspecified; I25.10 Atherosclerotic heart disease of native coronary artery without angina pectoris; E03.9 Hypothyroidism, unspecified; K21.9 Gastro-esophageal reflux disease without esophagitis; Z86.73 Personal history of transient ischemic attack (TIA), and cerebral infarction without residual deficits; Z79.82 Long term (current) use of aspirin; Z79.891 Long term (current) use of opiate analgesic; Z79.899 Other long term (current) drug therapy; Z98.51 Tubal ligation status; Z98.890 Other specified postprocedural states
CPT/HCPCS: 36415; 71045; 80053; 81001; 83735; 85025; 93005; 99284; A9270

== ENCOUNTER 2018-04-27 12:23 | Emergency (ER) | payer MEDICARE, OTHER ==
[2018-04-27 12:39] VITALS: BP 150/66
--- NOTE | 2018-04-27 12:47 | EDM.PDOC ---
ED HPI GENERAL MEDICAL PROBLEM - General Chief Complaint: Neurological Problem Stated Complaint: DIZZY SPELLS Time Seen by Provider: 04/27/18 12:44 - History of Present Illness INITIAL COMMENTS - FREE TEXT/NARRATIVE: 82-year-old female with intermittent dizziness. Gets brief episodes of dizziness especially after standing up or after being up on her feet for prolonged period of time. This gets worse when she is not drinking enough fluids and she recognizes this.. She's also on multiple medications that can be contributing to this. She denies any headaches nausea vomiting or other symptoms at this point Treatments FLASK HANDLER: Reports: Other (see below) Other Treatments FLASK HANDLER: meclizine - Related Data Allergies Allergy/AdvReac Type Severity Reaction Status Date / Time No Known Allergies Allergy Verified 03/03/18 14:37 Home Meds: Home Meds Cholecalciferol (Vitamin D3) [Vitamin D3] 1,000 unit PO DAILY 02/03/16 [History] Cyanocobalamin (Vitamin B-12) [B-12] 1,000 mcg PO DAILY 02/03/16 [History] Latanoprost [Xalatan 0.005% Ophth Soln] 1 drop EYEBOTH BEDTIME 02/03/16 [History ] Losartan [Cozaar] 50 mg PO BID 02/03/16 [History] Methotrexate 7 tab PO FR 02/03/16 [History] Metoprolol Succinate 50 mg PO BID 02/03/16 [History] Omeprazole 20 mg PO DAILY 02/03/16 [History] Prednisone [IJD: Prednisone] 10 mg PO SADLER 02/03/16 [History] Simvastatin [Zocor] 40 mg PO BEDTIME 02/03/16 [History] sulfaSALAzine 1,000 mg PO BID 02/03/16 [History] Aspirin 81 mg PO DAILY 04/20/17 [History] Calcium Carbonate/Vitamin D3 [Calcium 600-Vit D3 400 Tablet] 1 tab PO DAILY 04/08 [History] Fish Oil/DHA/EPA [Fish Oil 1,200 MG] 1,200 mg PO BEDTIME 04/20/17 [History] Folic Acid 3 mg PO DAILY 04/20/17 [History] Levothyroxine [Synthroid] 88 mcg PO DAILY 04/20/17 [History] Lutein/Minerals/Vit A,C & E [Ocuvite] 1 tab PO DAILY 04/20/17 [History] Multivitamin [Daily Multiple Vitamin] 1 tab PO DAILY 04/20/17 [History] Nystatin 1 applic TOP TID PRN 04/20/17 [History] Sennosides [Senna] 8.6 mg PO BID PRN tablet 04/26/17 [Rx] Meclizine [Antivert] 12.5 mg PO TID PRN #10 tab 03/03/18 [Rx] Past Medical History HEENT History: Reports: Glaucoma, Macular Degeneration Other HEENT History: Ringing to ears frequently, sore throat, lower partial, wears glasses, impacted cerumen Cardiovascular History: Reports: Blood Clots/VTE/DVT, CAD, High Cholesterol, Hypertension, Pacemaker, Other (See Below) Respiratory History: Reports: Other (See Below) Other Respiratory History: cough, bronchitis, pharyngitis, pleural fluid removal Gastrointestinal History: Reports: GERD, Other (See Below) Other Gastrointestinal History: Barrettes esophagus, colon surgery Genitourinary History: Reports: Chronic Renal Insuffiency [employer]IMMER History: Reports: Musculoskeletal History: Reports: Arthritis Neurological History: Reports: CVA Other Neuro History: left sided weakness Psychiatric History: Reports: None Endocrine/Metabolic History: Reports: Hypothyroidism Hematologic History: Reports: None Immunologic History: Reports: None Oncologic (Cancer) History: Reports: Colon Dermatologic History: Reports: Other (See Below) Other Dermatologic History: candidiasis, seborrheic keratosis - Infectious Disease History Infectious Disease History: Reports: Measles, Mumps, Rubella, Shingles - Past Surgical History Head Surgeries/Procedures: Reports: None HEENT Surgical History: Reports: Cataract Surgery Cardiovascular Surgical History: Reports: Pacer Respiratory Surgical History: Reports: None GI Surgical History: Reports: Colonoscopy Female Surgical History: Reports: Tubal Ligation Endocrine Surgical History: Reports: None Neurological Surgical History: Reports: Other (See Below) Other Neurological Surgeries/Procedures: low back surgery Musculoskeletal Surgical History: Reports: Other (See Below), Shoulder Surgery Other Musculoskeletal Surgeries/Procedures:: L rotator cuff surgery, Back surgery to repair ruptured discs Oncologic Surgical History: Reports: None Social & Family History - Family History Family Medical History: Noncontributory - Tobacco Use Smoking Status *Q: Never Smoker - Caffeine Use Caffeine Use: Reports: Coffee, Soda - Recreational Drug Use Recreational Drug Use: No ED ROS GENERAL - Review of Systems Review Of Systems: See Below Constitutional: Reports: No Symptoms HEENT: Reports: No Symptoms Respiratory: Reports: No Symptoms Cardiovascular: Reports: No Symptoms Endocrine: Reports: No Symptoms GI/Abdominal: Reports: No Symptoms : Reports: No Symptoms Musculoskeletal: Reports: No Symptoms Skin: Reports: No Symptoms Neurological: Reports: Dizziness Psychiatric: Reports: No Symptoms ED EXAM, DIZZINESS - Physical Exam Exam: See Below Exam Limited By: No Limitations General Appearance: Alert, No Apparent Distress, Other Eye Exam: Bilateral Eye: EOMI, Normal Inspection, PERRL Ears: Normal External Exam, Normal Canal, Hearing Grossly Normal Nose: Normal Inspection, Normal Mucosa, No Blood Throat/Mouth: Normal Inspection, Normal Lips, Normal Gums, Normal Oropharynx, No Airway Compromise Head Exam: Atraumatic, Normocephalic Neck: Normal Inspection, Supple, Non-Tender, Full Range of Motion Respiratory/Chest: No Respiratory Distress, Lungs Clear, Normal Breath Sounds, No Accessory Muscle Use, Chest Non-Tender Cardiovascular: Normal Peripheral Pulses, Regular Rate, Rhythm, No Edema, No Gallop, No JVD, No Murmur, No Rub GI/Abdominal: Normal Bowel Sounds, Soft, Non-Tender Neurological: Other (Cranial nurse 2 through 12 grossly intact all muscle groups the upper lower extremities are equal and appropriate bilaterally deep tendon reflexes the brachial radialis are equal and appropriate bilaterally cerebellar testing is entirely within normal limits) Back Exam: Normal Inspection, Full Range of Motion. No: CVA Tenderness (L), CVA Tenderness (R), Vertebral Tenderness Extremities: Normal Inspection Psychiatric: Normal Affect, Normal Mood Skin Exam: Warm, Dry, Intact Course - Vital Signs Last Recorded V/S: Last Vital Signs Temp 37.1 C 04/27/18 12:38 Pulse 70 04/27/18 12:38 Resp 20 04/27/18 12:38 BP 150/66 H 04/27/18 12:38 Pulse Ox 95 04/27/18 12:38 - Orders/Labs/Meds Orders: Active Orders 24 hr Category Date Time Status EKG Documentation Completion [RC] STAT Care 04/27/18 12:56 Active Lactated Ringers [Ringers, Lactated] 1,000 ml Med 04/27/18 13:00 Active IV ASDIRECTED Medication Orders Lactated Ringer's (Ringers, Lactated) 1,000 mls @ 150 mls/hr IV ASDIRECTED [facility] Labs: Laboratory Tests 04/27/18 04/27/18 Range/Units 13:30 13:30 WBC 5.10 (3.98-10.04) K/mm3 RBC 4.20 (3.98-5.22) M/mm3 Hgb 12.3 (11.2-15.7) gm/L Hct 37.9 (34.1-44.9) % MCV 90.2 (79.4-94.8) fl MCH 29.3 (25.6-32.2) pg MCHC 32.5 (32.2-35.5) g/dl RDW Std Deviation 48.4 H (36.4-46.3) fL Plt Count 150 L (182-369) K/mm3 MPV 11.4 (9.4-12.3) fl Neutrophils % (Manual) 43 (40-60) % Band Neutrophils % 0 (0-10) % Lymphocytes % (Manual) 45 H (20-40) % Atypical Lymphs % 0 % Monocytes % (Manual) 9 (2-10) % Eosinophils % (Manual) 2 (0.7-5.8) % Basophils % (Manual) 1 (0.1-1.2) Platelet Estimate Adequate RBC Morph Comment Normal Sodium 142 (136-145) mEq/L Potassium 3.8 (3.5-5.1) mEq/L Chloride 109 H (98-107) mEq/L Carbon Dioxide 23 (21-32) mEq/L Anion Gap 13.8 (5-15) BUN 19 H (7-18) mg/dL Creatinine 1.0 (0.55-1.02) mg/dL Est Cr Clr Drug Dosing 32.16 mL/min Estimated GFR (MDRD) 53 (>60) mL/min BUN/Creatinine Ratio 19.0 H (14-18) Glucose 101 (83-115) mg/dL Calcium 9.8 (8.5-10.1) mg/dL Magnesium 1.9 (1.8-2.4) mg/dl Total Bilirubin 0.6 (0.2-1.0) mg/dL AST 14 L (15-37) U/L ALT 18 (14-59) U/L Alkaline Phosphatase 85 (46-116) U/L Total Protein 6.7 (6.4-8.2) g/dl Albumin 3.2 L (3.4-5.0) g/dl Globulin 3.5 gm/dL Albumin/Globulin Ratio 0.9 L (1-2) Meds: Medications Generic Name Dose Route Start Last Admin Trade Name Kimberly PRN Reason Stop Dose Admin Lactated Ringer's 1,000 mls @ 150 mls/hr 04/27/18 13:00 Ringers, Lactated IV ASDIRECTED LEEANN Discontinued Medications Generic Name Dose Route Start Last Admin Trade Name Freq PRN Reason Stop Dose Admin Lactated Ringer's 500 mls @ 999 mls/hr 04/27/18 12:58 04/27/18 14:14 Ringers, Lactated IV 04/27/18 13:28 Infused .BOLUS ONE Infusion - Re-Assessments/Exams Free Text/Narrative Re-Assessment/Exam: 04/27/18 15:21 Patient is doing a little bit better I reviewed her labs reviewed her medications and believe a lot of her symptoms are due to poor physical conditioning and multiple medications I did discuss this with the patient and she tends to agree as well as the daughter. Discussed ways to improve this. Departure - Departure Time of Disposition: 15:22 Disposition: Home, Self-Care 01 Clinical Impression: Dizziness on standing - Discharge Information Referrals: Karen Cortez PA [Primary Care Provider] - Forms: ED Department Discharge Additional Instructions: Return to the emergency room with any questions problems worsening symptoms. Talk to your regular provider about possibly getting back into physical therapy. \ Drink plenty of fluids. Follow-up with your regular provider next week. - My Orders Last 24 Hours: My Active Orders 04/27/18 12:56 EKG Documentation Completion [RC] STAT 04/27/18 13:00 Lactated Ringers [Ringers, Lactated] 1,000 ml IV ASDIRECTED - Assessment/Plan Last 24 Hours: My Active Orders 04/27/18 12:56 EKG Documentation Completion [RC] STAT 04/27/18 13:00 Lactated Ringers [Ringers, Lactated] 1,000 ml IV ASDIRECTED
[2018-04-27] MEDS ORDERED: Lactated Ringers 500 ML IV ONE (12:58)
[2018-04-27] MEDS ORDERED: Lactated Ringers 1,000 ML IV SCH (13:00)
== END 2018-04-27 15:35 | disposition home or self-care (01) ==
LOC: JD.ED 12:23
DX: R42 Dizziness and giddiness (principal); I12.9 Hypertensive chronic kidney disease with stage 1 through stage 4 chronic kidney disease, or unspecified chronic kidney disease; N18.9 Chronic kidney disease, unspecified; E78.00 Pure hypercholesterolemia, unspecified; E03.9 Hypothyroidism, unspecified; K21.9 Gastro-esophageal reflux disease without esophagitis; Z79.82 Long term (current) use of aspirin; Z79.899 Other long term (current) drug therapy
CPT/HCPCS: 36415; 80053; 83735; 85007; 85027; 93005; 96365; 96366; 99284; J7120; 99283

== ENCOUNTER 2020-01-13 18:43 | Emergency (ER) | payer MEDICARE, OTHER, MEDICAID ==
--- NOTE | 2020-01-13 19:12 | EDM.PDOC ---
ED HPI GENERAL MEDICAL PROBLEM - General Chief Complaint: Respiratory Problem Stated Complaint: COUGH SOB Time Seen by Provider: 01/13/20 18:57 Source of Information: Reports: Patient, RN Notes Reviewed - History of Present Illness INITIAL COMMENTS - FREE TEXT/NARRATIVE: 84 yr old female with cough, worsening dyspnea since yesterday, chills this past morning. Hx of CHF, Htn, and what sounds like mild COPD. Typically uses oxygen at night but not during the day. No chest pain. No abd pain, nausea, vomiting or diarrhea. She does have hx of Htn, RA, mild CHF. Uses oxygen 1 liter at night. - Related Data Allergies Allergy/AdvReac Type Severity Reaction Status Date / Time No Known Allergies Allergy Verified 01/13/20 18:57 Home Meds: Home Meds Cholecalciferol (Vitamin D3) [Vitamin D3] 1,000 unit PO DAILY 02/03/16 [History] Cyanocobalamin (Vitamin B-12) [B-12] 1,000 mcg PO DAILY 02/03/16 [History] Latanoprost [Xalatan 0.005% [facility] Soln] 1 drop EYEBOTH BEDTIME 02/03/16 [History] Methotrexate 2.5 mg PO FR 02/03/16 [History] Metoprolol Succinate 100 mg PO DAILY 02/03/16 [History] Omeprazole 20 mg PO DAILY 02/03/16 [History] Prednisone [IJD: Prednisone] 10 mg PO SADLER 02/03/16 [History] Simvastatin [Zocor] 40 mg PO BEDTIME 02/03/16 [History] sulfaSALAzine 1,000 mg PO BID 02/03/16 [History] Aspirin 81 mg PO DAILY 04/20/17 [History] Lutein/Minerals/Vit A,C & E [Ocuvite] 1 tab PO DAILY 04/20/17 [History] Multivitamin [Daily Multiple Vitamin] 1 tab PO DAILY 04/20/17 [History] Losartan Potassium [Cozaar] 100 mg PO DAILY 01/06/19 [History] Brinzolamide/Brimonidine Tart [Simbrinza 1%-0.2% Eye Drops] 1 drop EYEBOTH BID 01/13/20 [History] Folic Acid 400 mcg PO DAILY 01/13/20 [History] Furosemide [Lasix] 20 mg PO DAILY 01/13/20 [History] Levothyroxine [Synthroid] 100 mcg PO DAILY 01/13/20 [History] [place]-3 Fatty Acids [[place]-3] 1 cap PO DAILY 01/13/20 [History] Rivaroxaban [Xarelto] 20 mg PO DAILY 01/13/20 [History] Past Medical History HEENT History: Reports: Glaucoma, Macular Degeneration Other HEENT History: Ringing to ears frequently, sore throat, lower partial, wears glasses, impacted cerumen Cardiovascular History: Reports: Blood Clots/VTE/DVT, CAD, High Cholesterol, Hypertension, Pacemaker, Other (See Below) Respiratory History: Reports: Other (See Below) Other Respiratory History: cough, bronchitis, pharyngitis, pleural fluid removal Gastrointestinal History: Reports: GERD, Other (See Below) Other Gastrointestinal History: Barrettes esophagus, colon surgery Genitourinary History: Reports: Chronic Renal Insuffiency PIECE DYER History: Reports: Musculoskeletal History: Reports: Arthritis Neurological History: Reports: CVA Other Neuro History: left sided weakness Psychiatric History: Reports: None Endocrine/Metabolic History: Reports: Hypothyroidism Hematologic History: Reports: None Immunologic History: Reports: None Oncologic (Cancer) History: Reports: Colon Other Oncologic History: removed 5 inches of colon in 2006. Dermatologic History: Reports: Other (See Below) Other Dermatologic History: candidiasis, seborrheic keratosis - Infectious Disease History Infectious Disease History: Reports: Chicken Pox, Measles, Mumps, Rubella, Shingles - Past Surgical History HEENT Surgical History: Reports: Cataract Surgery Other HEENT Surgeries/Procedures: right eye lid lift Cardiovascular Surgical History: Reports: Pacer Other Cardiovascular Surgeries/Procedures: carotid stripped GI Surgical History: Reports: Colonoscopy Other GI Surgeries/Procedures: resection Female Surgical History: Reports: Tubal Ligation Neurological Surgical History: Reports: Other (See Below) Other Neurological Surgeries/Procedures: low back surgery Musculoskeletal Surgical History: Reports: Other (See Below), Shoulder Surgery Other Musculoskeletal Surgeries/Procedures:: L rotator cuff surgery, Back surgery to repair ruptured discs Oncologic Surgical History: Reports: None Other Oncologic Surgeries/Procedures: colon resection Social & Family History - Family History Family Medical History: No Pertinent Family History - Tobacco Use Tobacco Use Status *Q: Never Tobacco User Second Hand Smoke Exposure: No - Caffeine Use Caffeine Use: Reports: Coffee Other Caffeine Use: 1-2 coffee day - Recreational Drug Use Recreational Drug Use: No ED ROS GENERAL - Review of Systems Review Of Systems: See Below Constitutional: Reports: Chills. Denies: Fever HEENT: Denies: Sinus Problem, Throat Pain Respiratory: Reports: Shortness of Breath, Cough. Denies: Wheezing Cardiovascular: Reports: Edema (mild bilat). Denies: Chest Pain GI/Abdominal: Denies: Abdominal Pain, Nausea, Vomiting Musculoskeletal: Denies: Shoulder Pain, Arm Pain Skin: Reports: No Symptoms Neurological: Reports: No Symptoms ED EXAM, GENERAL - Physical Exam Exam: See Below General Appearance: Alert, No Apparent Distress Eye Exam: Bilateral Eye: PERRL Head: Atraumatic. No: Facial Swelling Neck: Supple, Other (no JVD) Respiratory/Chest: Respiratory Distress (mild tachypnea). No: Rales, Rhonchi, Wheezing Cardiovascular: Regular Rate, Rhythm Back Exam: No: CVA Tenderness (L), CVA Tenderness (R) Extremities: Normal Inspection, Pedal Edema (trace bilat). No: Leg Pain, Increased Warmth, Redness Neurological: Alert, Oriented, No Motor/Sensory Deficits Skin Exam: Warm, Dry, Normal Color, No Rash Course - Vital Signs Last Recorded V/S: Last Vital Signs Temp 99.7 F 01/13/20 18:55 Pulse 95 01/13/20 18:55 Resp 25 H 01/13/20 18:55 BP 167/64 H 01/13/20 18:55 Pulse Ox 92 L 01/13/20 18:55 - Orders/Labs/Meds Orders: Active Orders 24 hr Category Date Time Status Consult to [Consult to Home Health] [CONS] Routine Cons 01/13/20 21:44 Active Chest 1V Frontal [CR] Stat Exams 01/13/20 19:09 Taken Labs: Laboratory Tests 01/13/20 01/13/20 01/13/20 Range/Units 19:24 19:24 19:24 WBC 6.25 (3.98-10.04) K/mm3 RBC 3.84 L (3.98-5.22) M/mm3 Hgb 12.1 D (11.2-15.7) gm/dl Hct 36.7 (34.1-44.9) % MCV 95.6 H (79.4-94.8) fl MCH 31.5 (25.6-32.2) pg MCHC 33.0 (32.2-35.5) g/dl RDW Std Deviation 51.3 H (36.4-46.3) fL Plt Count 127 L (182-369) K/mm3 MPV 11.6 (9.4-12.3) fl Neut % (Auto) 80.2 H (34.0-71.1) % Lymph % (Auto) 15.0 L (19.3-51.7) % [place] % (Auto) 4.3 L (4.7-12.5) % Eos % (Auto) 0.2 L (0.7-5.8) Baso % (Auto) 0.3 (0.1-1.2) % Neut # (Auto) 5.01 (1.56-6.13) K/mm3 Lymph # (Auto) 0.94 L (1.18-3.74) K/mm3 [place] # (Auto) 0.27 (0.24-0.36) K/mm3 Eos # (Auto) 0.01 L (0.04-0.36) K/mm3 Baso # (Auto) 0.02 (0.01-0.08) K/mm3 D-Dimer, Quantitative (0.19-0.50) mg/L Sodium 139 (136-145) mEq/L Potassium 4.0 (3.5-5.1) mEq/L Chloride 105 (98-107) mEq/L Carbon Dioxide 22 (21-32) mEq/L Anion Gap 16.0 H (5-15) BUN 21 H (7-18) mg/dL Creatinine 1.2 H (0.55-1.02) mg/dL Est Cr Clr Drug Dosing 25.86 mL/min Estimated GFR (MDRD) 43 (>60) mL/min BUN/Creatinine Ratio 17.5 (14-18) Glucose 111 (83-115) mg/dL Calcium 10.5 H (8.5-10.1) mg/dL Total Bilirubin 0.9 (0.2-1.0) mg/dL AST 23 (15-37) U/L ALT 31 (14-59) U/L Alkaline Phosphatase 67 (46-116) U/L C-Reactive Protein 28.4 H* (<1.0) mg/dL NT-Pro-B Natriuret Pep (0-450) pg/mL Total Protein 7.1 (6.4-8.2) g/dl Albumin 3.2 L (3.4-5.0) g/dl Globulin 3.9 gm/dL Albumin/Globulin Ratio 0.8 L (1-2) SARS-CoV-2 RNA (BEN) (NEGATIVE) 01/13/20 01/13/20 01/13/20 Range/Units 19:24 19:24 19:56 WBC (3.98-10.04) K/mm3 RBC (3.98-5.22) M/mm3 Hgb (11.2-15.7) gm/dl Hct (34.1-44.9) % MCV (79.4-94.8) fl MCH (25.6-32.2) pg MCHC (32.2-35.5) g/dl RDW Std Deviation (36.4-46.3) fL Plt Count (182-369) K/mm3 MPV (9.4-12.3) fl Neut % (Auto) (34.0-71.1) % Lymph % (Auto) (19.3-51.7) % [place] % (Auto) (4.7-12.5) % Eos % (Auto) (0.7-5.8) Baso % (Auto) (0.1-1.2) % Neut # (Auto) (1.56-6.13) K/mm3 Lymph # (Auto) (1.18-3.74) K/mm3 [place] # (Auto) (0.24-0.36) K/mm3 Eos # (Auto) (0.04-0.36) K/mm3 Baso # (Auto) (0.01-0.08) K/mm3 D-Dimer, Quantitative 0.45 (0.19-0.50) mg/L Sodium (136-145) mEq/L Potassium (3.5-5.1) mEq/L Chloride (98-107) mEq/L Carbon Dioxide (21-32) mEq/L Anion Gap (5-15) BUN (7-18) mg/dL Creatinine (0.55-1.02) mg/dL Est Cr Clr Drug Dosing mL/min Estimated GFR (MDRD) (>60) mL/min BUN/Creatinine Ratio (14-18) Glucose (83-115) mg/dL Calcium (8.5-10.1) mg/dL Total Bilirubin (0.2-1.0) mg/dL AST (15-37) U/L ALT (14-59) U/L Alkaline Phosphatase (46-116) U/L C-Reactive Protein (<1.0) mg/dL NT-Pro-B Natriuret Pep 3057 H (0-450) pg/mL Total Protein (6.4-8.2) g/dl Albumin (3.4-5.0) g/dl Globulin gm/dL Albumin/Globulin Ratio (1-2) SARS-CoV-2 RNA (BEN) Positive H (NEGATIVE) - Re-Assessments/Exams Free Text/Narrative Re-Assessment/Exam: 01/13/20 21:47 Covid screen did come back positive. CXR mostly clear, question slight small infiltrate L base. on room air her sats were 87 to 89. On 1 liter they have been consitently running 92 to 95. Considered monoclonal antibody RX but the oxygen makes her ineligible. Have written a home health consult. 01/13/20 22:00. Did discuss findings in detail with her daughter Vicki who lives in [place]. Her and son have had contact with [facility] this evening to bring her in and also 3 days ago gave her a ride to and from [facility]. Informed Vicki of need for them to isolate for 14 days. Departure - Departure Time of Disposition: 21:40 Disposition: Home, Self-Care 01 Condition: Fair Clinical Impression: Coronavirus infection - Discharge Information Instructions: COVID-19, Prevent the Spread of COVID-19 if You Are Sick - [facility] Referrals: Cintia Rosales, [employer] [Primary Care Provider] - Forms: ED Department Discharge Additional Instructions: For now use the 1 liter oxygen day and night. Rest. Continue current medications. Self Isolate for at least 12 days and no fever or chills for at least 3 to 4 days. A consult order has been written for Home Health to check on you and help moniter your condition as appropriate. Return to ED if your breathing becomes very difficult on oxygen or otherwise as needed. Sepsis Event Note (ED) - Evaluation Sepsis Screening Result: No Definite Risk - Focused Exam Vital Signs: Vital Signs Temp Pulse Resp BP Pulse Ox 01/13/20 18:55 99.7 F 95 25 H 167/64 H 92 L - My Orders Last 24 Hours: My Active Orders 01/13/20 19:09 Chest 1V Frontal [CR] Stat 01/13/20 21:44 Consult to [Consult to Home Health] [CONS] Routine - Assessment/Plan Last 24 Hours: My Active Orders 01/13/20 19:09 Chest 1V Frontal [CR] Stat 01/13/20 21:44 Consult to [Consult to Home Health] [CONS] Routine
[2020-01-14 00:03] VITALS: BP 151/60; PULSE 81
--- NOTE | 2020-01-14 08:40 | CR ---
PROCEDURE INFORMATION: Exam: XR Chest, 1 View Exam date and time: 01/13/2020 7:06 PM Age: 84 years old Clinical indication: Cough and dyspnea and other: Chills TECHNIQUE: Imaging protocol: XR of the chest Views: 1 view. COMPARISON: DX Chest 2V 01/05/2019 4:42 PM FINDINGS: Tubes, catheters and devices: There is a pacemaker with dual chamber electrodes in stable position. Lungs: There is a patchy alveolar opacity overlying the left heart border and left hemidiaphragm. The right lung is grossly clear. Pleural space: There are no pleural effusions. There is no pneumothorax. Heart/Mediastinum: The heart is enlarged but stable. The mediastinal and hilar contours are normal. The pulmonary vessels are normal. Bones/joints: No acute osseous pathology is identified. There is a right shoulder arthroplasty. There is a soft tissue anchor in the left humeral head. IMPRESSION: Findings are suspicious for left lower lobe pneumonia. Thank you for allowing us to participate in the care of your patient. Dictated and Authenticated by: Mariely Villafana MD 01/13/2020 8:49 PM Central Time ([place] & [place]) [email or web address]
== END 2020-01-13 22:50 | disposition home or self-care (01) ==
LOC: JD.ED 18:43
DX: U07.1 COVID-19 (principal); I25.10 Atherosclerotic heart disease of native coronary artery without angina pectoris; E78.00 Pure hypercholesterolemia, unspecified; I10 Essential (primary) hypertension; I12.9 Hypertensive chronic kidney disease with stage 1 through stage 4 chronic kidney disease, or unspecified chronic kidney disease; N18.9 Chronic kidney disease, unspecified; M19.90 Unspecified osteoarthritis, unspecified site; Z86.73 Personal history of transient ischemic attack (TIA), and cerebral infarction without residual deficits; E03.9 Hypothyroidism, unspecified; Z79.82 Long term (current) use of aspirin; Z79.899 Other long term (current) drug therapy; Z79.01 Long term (current) use of anticoagulants; Z86.718 Personal history of other venous thrombosis and embolism
CPT/HCPCS: 36415; 71045; 80053; 83880; 85025; 85379; 86140; 99285; U0002

== ENCOUNTER 2020-01-16 07:24 | Inpatient (IN) | payer MEDICARE, OTHER, MEDICAID ==
--- NOTE | 2020-01-16 08:17 | EDM.PDOC ---
ED HPI GENERAL MEDICAL PROBLEM - General Chief Complaint: Respiratory Problem Stated Complaint: [facility] Time Seen by Provider: 01/16/20 07:43 Source of Information: Reports: Patient, EMS, RN Notes Reviewed - History of Present Illness INITIAL COMMENTS - FREE TEXT/NARRATIVE: 84 yr old became ill with cough, dyspnea about 4 days ago. She was evaluated here in the ED 2 1/2 days ago, found to be covid pos. Her CXR was mostly clear, question small infiltrate L base. She was using home oxygen at night. Her sats were good at the time, 92 to 95 % at 1 liter NC. She feels much more ill this morning. She is more short of breath despite 02 at 2 L NC. She continues to cough, has had chills, possible low grade fever. She has had decreased appetite, mild diarrhea, generalized weakness. Hx Htn, RA, mild CHF. 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 Lower Back Pain Score (Numeric/FACES): 2 - Related Data Allergies Allergy/AdvReac Type Severity Reaction Status Date / Time No Known Allergies Allergy Verified 01/16/20 07:38 Home Meds: Home Meds Cholecalciferol (Vitamin D3) [Vitamin D3] 1,000 unit PO DAILY 02/03/16 [History] Cyanocobalamin (Vitamin B-12) [B-12] 1,000 mcg PO DAILY 02/03/16 [History] Latanoprost [Xalatan 0.005% Ophth Soln] 1 drop EYEBOTH BEDTIME 02/03/16 [History] Methotrexate 2.5 mg PO FR 02/03/16 [History] Metoprolol Succinate 100 mg PO DAILY 02/03/16 [History] Omeprazole 20 mg PO DAILY 02/03/16 [History] Prednisone [IJD: Prednisone] 10 mg PO SADLER 02/03/16 [History] Simvastatin [Zocor] 40 mg PO BEDTIME 02/03/16 [History] sulfaSALAzine 1,000 mg PO BID 02/03/16 [History] Aspirin 81 mg PO DAILY 04/20/17 [History] Lutein/Minerals/Vit A,C & E [Ocuvite] 1 tab PO DAILY 04/20/17 [History] Multivitamin [Daily Multiple Vitamin] 1 tab PO DAILY 04/20/17 [History] Losartan Potassium [Cozaar] 100 mg PO DAILY 01/06/19 [History] Brinzolamide/Brimonidine Tart [Simbrinza 1%-0.2% Eye Drops] 1 drop EYEBOTH BID 01/13/20 [History] Folic Acid 400 mcg PO DAILY 01/13/20 [History] Furosemide [Lasix] 20 mg PO DAILY 01/13/20 [History] Levothyroxine [Synthroid] 100 mcg PO DAILY 01/13/20 [History] [place]-3 Fatty Acids [[place]-3] 1 cap PO DAILY 01/13/20 [History] Rivaroxaban [Xarelto] 20 mg PO DAILY 01/13/20 [History] Past Medical History HEENT History: Reports: Glaucoma, Macular Degeneration Other HEENT History: Ringing to ears frequently, sore throat, lower partial, wears glasses, impacted cerumen Cardiovascular History: Reports: Blood Clots/VTE/DVT, CAD, High Cholesterol, Hypertension, Pacemaker Respiratory History: Reports: Other (See Below) Other Respiratory History: cough, bronchitis, pharyngitis, pleural fluid removal Gastrointestinal History: Reports: GERD Other Gastrointestinal History: Barrettes esophagus Genitourinary History: Reports: Chronic Renal Insuffiency 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 Dermatologic History: Reports: Other (See Below) Other Dermatologic History: candidiasis, seborrheic keratosis - Infectious Disease History Infectious Disease History: Reports: Chicken Pox, Measles, Mumps, Novel Coronavirus, Rubella, Shingles - Past Surgical History Head Surgeries/Procedures: Reports: None HEENT Surgical History: Reports: Cataract Surgery Other HEENT Surgeries/Procedures: right eye lid lift Cardiovascular Surgical History: Reports: Pacer Other Cardiovascular Surgeries/Procedures: carotid stripped GI Surgical History: Reports: Colon, Colonoscopy Other GI Surgeries/Procedures: resection Female Surgical History: Reports: Tubal Ligation Neurological Surgical History: Reports: Lumbar Spine Musculoskeletal Surgical History: Reports: Shoulder Surgery Oncologic Surgical History: Reports: None Other Oncologic Surgeries/Procedures: colon resection Social & Family History - Family History Family Medical History: No Pertinent Family History - Tobacco Use Tobacco Use Status *Q: Never Tobacco User - Caffeine Use Caffeine Use: Reports: Coffee Other Caffeine Use: 1-2 coffee day - Recreational Drug Use Recreational Drug Use: No ED ROS GENERAL - Review of Systems Review Of Systems: See Below Constitutional: Reports: Fever, Chills HEENT: Reports: Rhinitis (mild). Denies: Throat Pain Respiratory: Reports: Shortness of Breath, Wheezing, Cough Cardiovascular: Denies: Chest Pain Endocrine: Reports: Fatigue GI/Abdominal: Reports: Diarrhea, Decreased Appetite, Nausea. Denies: Vomiting Musculoskeletal: Reports: Other (generalized achiness) Skin: Denies: Rash Neurological: Reports: Dizziness, Weakness (generalized) ED EXAM, GENERAL - Physical Exam Exam: See Below General Appearance: Alert, Mild Distress Head: Atraumatic Neck: Supple, Other (No JVD) Respiratory/Chest: Respiratory Distress (moderate tachypnea). No: Rales, Rhonchi, Wheezing Cardiovascular: Regular Rate, Rhythm GI/Abdominal: Soft, Non-Tender Extremities: No: Pedal Edema, Leg Pain, Increased Warmth, Redness Neurological: Alert, Oriented, No Motor/Sensory Deficits Skin Exam: Warm, Dry, Normal Color #1 Interpretation EKG Date: 01/16/20 Rhythm: Other (paced rythm, rate 78) Course - Vital Signs Last Recorded V/S: Last Vital Signs Temp 98.0 F 01/16/20 07:34 Pulse 91 01/16/20 07:34 Resp 44 H 01/16/20 07:34 BP 132/90 01/16/20 07:34 Pulse Ox 87 L 01/16/20 07:34 - Orders/Labs/Meds Orders: Active Orders 24 hr Category Date Time Status EKG 12 Lead [EKG Documentation Completion] [RC] STAT Care 01/16/20 07:47 Active Oxygen Therapy [RC] ASDIRECTED Care 01/16/20 07:47 Active Peripheral IV Care [RC] . DIRECTED Care 01/16/20 07:48 Active Chest 1V Frontal [CR] Stat Exams 01/16/20 07:46 Taken Sodium Chloride 0.9% [Saline Flush] Med 01/16/20 07:47 Active 10 ml FLUSH ASDIRECTED PRN Peripheral IV Insertion Adult [OM.PC] Stat Oth 01/16/20 07:47 Ordered Medication Orders Sodium Chloride (Saline Flush) 10 ml FLUSH ASDIRECTED PRN PRN Reason: Keep Vein Open Last Admin: 01/16/20 09:31 Dose: 10 ml Documented by: ELIF Labs: Laboratory Tests 01/16/20 01/16/20 01/16/20 Range/Units 08:15 08:25 08:25 WBC 7.80 (3.98-10.04) K/mm3 RBC 3.68 L (3.98-5.22) M/mm3 Hgb 11.5 (11.2-15.7) gm/dl Hct 34.5 (34.1-44.9) % MCV 93.8 (79.4-94.8) fl MCH 31.3 (25.6-32.2) pg MCHC 33.3 (32.2-35.5) g/dl RDW Std Deviation 50.3 H (36.4-46.3) fL Plt Count 192 (182-369) K/mm3 MPV 11.1 (9.4-12.3) fl Neut % (Auto) 87.0 H (34.0-71.1) % Lymph % (Auto) 8.2 L (19.3-51.7) % [place] % (Auto) 4.5 L (4.7-12.5) % Eos % (Auto) 0 L (0.7-5.8) Baso % (Auto) 0.3 (0.1-1.2) % Neut # (Auto) 6.79 H (1.56-6.13) K/mm3 Lymph # (Auto) 0.64 L (1.18-3.74) K/mm3 [place] # (Auto) 0.35 (0.24-0.36) K/mm3 Eos # (Auto) 0.00 L (0.04-0.36) K/mm3 Baso # (Auto) 0.02 (0.01-0.08) K/mm3 Manual Slide Review Abnormal smear D-Dimer, Quantitative (0.19-0.50) mg/L Puncture Site . ABG pH 7.36 (7.35-7.45) ABG pCO2 27.2 L (35.0-45.0) mmHg ABG pO2 71.0 L (80.0-100.0) mmHg ABG HCO3 14.8 L (22.0-26.0) meq/L ABG O2 Saturation 92.0 L (96.0-97.0) % ABG Base Excess -9.0 L (-2-2.0) Campbell Test Positive O2 Delivery Device Nasal cannula Oxygen Flow Rate 4.0 FiO2 0.00 L (21.00-100.00) % Sodium (136-145) mEq/L Potassium (3.5-5.1) mEq/L Chloride (98-107) mEq/L Carbon Dioxide (21-32) mEq/L Anion Gap (5-15) BUN (7-18) mg/dL Creatinine (0.55-1.02) mg/dL Est Cr Clr Drug Dosing mL/min Estimated GFR (MDRD) (>60) mL/min BUN/Creatinine Ratio (14-18) Glucose (83-115) mg/dL Calcium (8.5-10.1) mg/dL Ferritin (8-252) ng/ml Total Bilirubin (0.2-1.0) mg/dL AST (15-37) U/L ALT (14-59) U/L Alkaline Phosphatase (46-116) U/L Lactate Dehydrogenase (81-234) U/L Troponin I (0.00-0.056) ng/mL C-Reactive Protein 40.8 H* (<1.0) mg/dL NT-Pro-B Natriuret Pep (0-450) pg/mL Total Protein (6.4-8.2) g/dl Albumin (3.4-5.0) g/dl Globulin gm/dL Albumin/Globulin Ratio (1-2) 01/16/20 01/16/20 01/16/20 Range/Units 08:25 08:25 08:25 WBC (3.98-10.04) K/mm3 RBC (3.98-5.22) M/mm3 Hgb (11.2-15.7) gm/dl Hct (34.1-44.9) % MCV (79.4-94.8) fl MCH (25.6-32.2) pg MCHC (32.2-35.5) g/dl RDW Std Deviation (36.4-46.3) fL Plt Count (182-369) K/mm3 MPV (9.4-12.3) fl Neut % (Auto) (34.0-71.1) % Lymph % (Auto) (19.3-51.7) % [place] % (Auto) (4.7-12.5) % Eos % (Auto) (0.7-5.8) Baso % (Auto) (0.1-1.2) % Neut # (Auto) (1.56-6.13) K/mm3 Lymph # (Auto) (1.18-3.74) K/mm3 [place] # (Auto) (0.24-0.36) K/mm3 Eos # (Auto) (0.04-0.36) K/mm3 Baso # (Auto) (0.01-0.08) K/mm3 Manual Slide Review D-Dimer, Quantitative 0.63 H (0.19-0.50) mg/L Puncture Site ABG pH (7.35-7.45) ABG pCO2 (35.0-45.0) mmHg ABG pO2 (80.0-100.0) mmHg ABG HCO3 (22.0-26.0) meq/L ABG O2 Saturation (96.0-97.0) % ABG Base Excess (-2-2.0) Campbell Test O2 Delivery Device Oxygen Flow Rate FiO2 (21.00-100.00) % Sodium 136 (136-145) mEq/L Potassium 3.7 (3.5-5.1) mEq/L Chloride 103 (98-107) mEq/L Carbon Dioxide 17 L (21-32) mEq/L Anion Gap 19.7 H (5-15) BUN 33 H (7-18) mg/dL Creatinine 1.5 H (0.55-1.02) mg/dL Est Cr Clr Drug Dosing 20.69 mL/min Estimated GFR (MDRD) 33 (>60) mL/min BUN/Creatinine Ratio 22.0 H (14-18) Glucose 154 H (83-115) mg/dL Calcium 11.1 H (8.5-10.1) mg/dL Ferritin 572 H (8-252) ng/ml Total Bilirubin 0.7 (0.2-1.0) mg/dL AST 41 H (15-37) U/L ALT 53 (14-59) U/L Alkaline Phosphatase 146 H (46-116) U/L Lactate Dehydrogenase 296 H (81-234) U/L Troponin I 0.085 H* (0.00-0.056) ng/mL C-Reactive Protein (<1.0) mg/dL NT-Pro-B Natriuret Pep (0-450) pg/mL Total Protein 7.2 (6.4-8.2) g/dl Albumin 2.9 L (3.4-5.0) g/dl Globulin 4.3 gm/dL Albumin/Globulin Ratio 0.7 L (1-2) 01/16/20 Range/Units 09:40 WBC (3.98-10.04) K/mm3 RBC (3.98-5.22) M/mm3 Hgb (11.2-15.7) gm/dl Hct (34.1-44.9) % MCV (79.4-94.8) fl MCH (25.6-32.2) pg MCHC (32.2-35.5) g/dl RDW Std Deviation (36.4-46.3) fL Plt Count (182-369) K/mm3 MPV (9.4-12.3) fl Neut % (Auto) (34.0-71.1) % Lymph % (Auto) (19.3-51.7) % [place] % (Auto) (4.7-12.5) % Eos % (Auto) (0.7-5.8) Baso % (Auto) (0.1-1.2) % Neut # (Auto) (1.56-6.13) K/mm3 Lymph # (Auto) (1.18-3.74) K/mm3 [place] # (Auto) (0.24-0.36) K/mm3 Eos # (Auto) (0.04-0.36) K/mm3 Baso # (Auto) (0.01-0.08) K/mm3 Manual Slide Review D-Dimer, Quantitative (0.19-0.50) mg/L Puncture Site ABG pH (7.35-7.45) ABG pCO2 (35.0-45.0) mmHg ABG pO2 (80.0-100.0) mmHg ABG HCO3 (22.0-26.0) meq/L ABG O2 Saturation (96.0-97.0) % ABG Base Excess (-2-2.0) Campbell Test O2 Delivery Device Oxygen Flow Rate FiO2 (21.00-100.00) % Sodium (136-145) mEq/L Potassium (3.5-5.1) mEq/L Chloride (98-107) mEq/L Carbon Dioxide (21-32) mEq/L Anion Gap (5-15) BUN (7-18) mg/dL Creatinine (0.55-1.02) mg/dL Est Cr Clr Drug Dosing mL/min Estimated GFR (MDRD) (>60) mL/min BUN/Creatinine Ratio (14-18) Glucose (83-115) mg/dL Calcium (8.5-10.1) mg/dL Ferritin (8-252) ng/ml Total Bilirubin (0.2-1.0) mg/dL AST (15-37) U/L ALT (14-59) U/L Alkaline Phosphatase (46-116) U/L Lactate Dehydrogenase (81-234) U/L Troponin I (0.00-0.056) ng/mL C-Reactive Protein (<1.0) mg/dL NT-Pro-B Natriuret Pep 16961 H (0-450) pg/mL Total Protein (6.4-8.2) g/dl Albumin (3.4-5.0) g/dl Globulin gm/dL Albumin/Globulin Ratio (1-2) Meds: Medications Generic Name Dose Route Start Last Admin Trade Name Freq PRN Reason Stop Dose Admin Sodium Chloride 10 ml 01/16/20 07:47 01/16/20 09:31 Saline Flush FLUSH 10 ml ASDIRECTED PRN Administration Keep Vein Open Discontinued Medications Generic Name Dose Route Start Last Admin Trade Name Freq PRN Reason Stop Dose Admin Dexamethasone 6 mg 01/16/20 09:37 Decadron IVPUSH 01/16/20 09:38 ONETIME ONE Remdesivir 200 mg/ Sodium 250 mls @ 250 mls/hr 01/16/20 10:12 Chloride IV 01/16/20 10:13 ONETIME ONE - Re-Assessments/Exams Free Text/Narrative Re-Assessment/Exam: 01/16/20 09:48 CXR now does show new ground glass airspace disease bilat lower lung singh, change from 2 1/2 days ago, also now has bilat pul wali. compatable with CHF. Sats were low on the 2 L NC that she came in with, 87 to 88 %. O2 increased to 4 L NC. ABG's at 4 L NC show P02 of 71, 27, 7.36,14.8. WBC 7800. DD 0.63, CRP 40.8, trop .085. BUN 22, creat 1.5. She has failed home treatment/trial. We will have a bed later this morning, will admit for further treatment. Have ordered Dexamethasone IV. Departure - Departure Time of Disposition: 10:05 Disposition: Admitted As Inpatient 65 Condition: Serious Clinical Impression: Pneumonia due to COVID-19 virus, Hypoxia, Renal insufficiency CHF (congestive heart failure) Qualifiers: Heart failure type: combined systolic and diastolic Heart failure chronicity: acute on chronic Qualified Code(s): I50.43 - Acute on chronic combined systolic (congestive) and diastolic (congestive) heart failure - Discharge Information Referrals: Cintia Rosales [facility] [Primary Care Provider] - Forms: ED Department Discharge Sepsis Event Note (ED) - Evaluation Sepsis Screening Result: No Definite Risk - Focused Exam Vital Signs: Vital Signs Temp Pulse Resp BP Pulse Ox 01/16/20 07:34 98.0 F 91 44 H 132/90 87 L ED Communication - Discussed Case With (1) Discussed Case With (1): Admitting Provider (Dr Campbell, decision to admit at about 10:15.) - My Orders Last 24 Hours: My Active Orders 01/16/20 07:46 Chest 1V Frontal [CR] Stat 01/16/20 07:47 EKG 12 Lead [EKG Documentation Completion] [RC] STAT Oxygen Therapy [RC] ASDIRECTED Sodium Chloride 0.9% [Saline Flush] 10 ml FLUSH ASDIRECTED PRN Peripheral IV Insertion Adult [OM.PC] Stat 01/16/20 07:48 Peripheral IV Care [RC] . DIRECTED - Assessment/Plan Last 24 Hours: My Active Orders 01/16/20 07:46 Chest 1V Frontal [CR] Stat 01/16/20 07:47 EKG 12 Lead [EKG Documentation Completion] [RC] STAT Oxygen Therapy [RC] ASDIRECTED Sodium Chloride 0.9% [Saline Flush] 10 ml FLUSH ASDIRECTED PRN Peripheral IV Insertion Adult [OM.PC] Stat 01/16/20 07:48 Peripheral IV Care [RC] . DIRECTED
[2020-01-16] MEDS: Sodium Chloride 0.9% 10 ML Syringe FLUSH PRN (09:31)
[2020-01-16] MEDS ORDERED: Dexamethasone 10 MG/ML SDV IVPUSH ONE (09:37)
[2020-01-16] MEDS ORDERED: REMDESIVIR 200 MG in Sodium Chloride 0.9% 250 ML IV ONE ×3 (10:12→16:00)
[2020-01-16] MEDS ORDERED: Furosemide 20 MG/2 ML VIAL IVPUSH ONE (10:26)
--- NOTE | 2020-01-16 10:26 | PCM.HP.2 ---
H&P History of Present Illness - General Date of Service: 01/16/20 Admit Problem/Dx: COVID +, Dyspnea Source of Information: Patient, Old Records, Provider, RN, RN Notes Reviewed History Limitations: Reports: No Limitations - History of Present Illness Initial Comments - Free Text/Narative: This is a 84-year-old female who presents to ED on 01/16/2020 via [facility] complaining of cough and dyspnea that has been ongoing for about 4 days. She was evaluated in the ED on 01/13/2020 and found to be Covid positive. Her chest x-ray at that time was mostly clear with a small infiltrate in the left base. She went home using oxygen at night, as her saturations at that time were 92 to 95% on 1 L. On return to the ED today she reports she feels much worse. She states she is up to 2 L via nasal cannula and is much more short of breath. She also reports cough, chills, possible low-grade fever, decreased appetite, mild diarrhea, and generalized weakness. Has been taking Tylenol for her symptoms. In the ED temp was 98.0. Pulse 91. Respirations 44. Blood pressure 132/90. Pulse ox was 87%. Twelve-lead EKG is obtained showing a paced rhythm at 78 bpm. Labs are obtained showing a WBC that is normal at 7.80. Hemoglobin 11.5. Plates are normal at 192. ABGs obtained showing a pH of 7.36. PCO2 of 27.2. PO2 of 71.0. HCO3 is 14.8. O2 saturation 92%. Base excess is -9.0. This is while on 4 L via nasal cannula. CRP is 40.8. D-dimer 0.63. Sodium is on the low end of normal at 136. Potassium is 3.7. Chloride 103. Carbon dioxide 17. Anion gap is quite high at 19.7. BUN is 33. Creatinine 1.5. GFR 33. Glucose 154. Calcium is 0.1. Ferritin is high at 572. Bilirubin 0.7. AST is 41, ALT 53, alkaline phosphatase 146. LDH is high at 296. Troponin is high at 0.085. Protein 7.2. [place] [address]. Is given 6 mg IV push of dexamethasone and started on 200 mg of remdesivir. Chest x-ray is obtained showing new groundglass airspace in bilateral lower lung field which is a change from prior x-ray. She also has bilateral pulmonary congestion. She has failed outpatient treatment and will therefore need admission to the hospital. She carries a history of glaucoma, macular degeneration, tinnitus, prior VTE, CAD, HLD, hypertension, pacemaker, GERD, Brooks's esophagus, chronic renal sufficiency, arthritis, CVA with resulting left-sided weakness, hypothyroidism, colon cancer with 5 inches of colon removed in 2006. She has never used tobacc o. Her primary care provider is Kirstie Rosales NP. She is subsequently mid to the medical floor on telemetry for treatment of her COVID-19 pneumonia and CHF exacerbation. Lower Back Pain Score (Numeric/FACES): 2 - Related Data Allergies/Adverse Reactions: Allergies Allergy/AdvReac Type Severity Reaction Status Date / Time No Known Allergies Allergy Verified 01/16/20 14:09 Home Medications: Home Meds Cholecalciferol (Vitamin D3) [Vitamin D3] 1,000 unit PO DAILY 02/03/16 [History] Cyanocobalamin (Vitamin B-12) [B-12] 1,000 mcg PO DAILY 02/03/16 [History] Latanoprost [Xalatan 0.005% Ophth Soln] 1 drop EYEBOTH BEDTIME 02/03/16 [History] Methotrexate 2.5 mg PO FR 02/03/16 [History] Metoprolol Succinate 100 mg PO DAILY 02/03/16 [History] Omeprazole 20 mg PO DAILY 02/03/16 [History] Prednisone [IJD: Prednisone] 10 mg PO SADLER 02/03/16 [History] Simvastatin [Zocor] 40 mg PO BEDTIME 02/03/16 [History] sulfaSALAzine 1,000 mg PO BID 02/03/16 [History] Aspirin 81 mg PO DAILY 04/20/17 [History] Lutein/Minerals/Vit A,C & E [Ocuvite] 1 tab PO DAILY 04/20/17 [History] Multivitamin [Daily Multiple Vitamin] 1 tab PO DAILY 04/20/17 [History] Losartan Potassium [Cozaar] 100 mg PO DAILY 01/06/19 [History] Brinzolamide/Brimonidine Tart [Simbrinza 1%-0.2% Eye Drops] 1 drop EYEBOTH BID 01/13/20 [History] Folic Acid 400 mcg PO DAILY 01/13/20 [History] Furosemide [Lasix] 20 mg PO DAILY 01/13/20 [History] Levothyroxine [Synthroid] 100 mcg PO DAILY 01/13/20 [History] Cosby-3 Fatty Acids [Cosby-3] 1 cap PO DAILY 01/13/20 [History] Rivaroxaban [Xarelto] 20 mg PO DAILY 01/13/20 [History] Past Medical History HEENT History: Reports: Glaucoma, Macular Degeneration Other HEENT History: Ringing to ears frequently, sore throat, lower partial, wears glasses, impacted cerumen Cardiovascular History: Reports: Blood Clots/VTE/DVT, CAD, High Cholesterol, Hypertension, Pacemaker Respiratory History: Reports: Other (See Below) Other Respiratory History: cough, bronchitis, pharyngitis, pleural fluid removal Gastrointestinal History: Reports: GERD Other Gastrointestinal History: Barrettes esophagus Genitourinary History: Reports: Chronic Renal Insuffiency 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 Dermatologic History: Reports: Other (See Below) Other Dermatologic History: candidiasis, seborrheic keratosis - Infectious Disease History Infectious Disease History: Reports: Chicken Pox, Measles, Mumps, Novel Coronavirus, Rubella, Shingles - Past Surgical History Head Surgeries/Procedures: Reports: None HEENT Surgical History: Reports: Cataract Surgery Other HEENT Surgeries/Procedures: right eye lid lift Cardiovascular Surgical History: Reports: Pacer Other Cardiovascular Surgeries/Procedures: carotid stripped GI Surgical History: Reports: Colon, Colonoscopy Other GI Surgeries/Procedures: resection Female Surgical History: Reports: Tubal Ligation Neurological Surgical History: Reports: Lumbar Spine Musculoskeletal Surgical History: Reports: Shoulder Surgery Oncologic Surgical History: Reports: None Other Oncologic Surgeries/Procedures: colon resection Social & Family History - Family History Family Medical History: No Pertinent Family History - Tobacco Use Tobacco Use Status *Q: Never Tobacco User - Caffeine Use Caffeine Use: Reports: Coffee Other Caffeine Use: 1-2 coffee day - Recreational Drug Use Recreational Drug Use: No H&P Review of Systems - Review of Systems: Review Of Systems: See Below General: Reports: Chills, Malaise, Weakness, Fatigue, Decreased Appetite. Denies: Fever (unsure) HEENT: Reports: Rhinitis. Denies: Headaches, Sore Throat Pulmonary: Reports: Shortness of Breath, Wheezing, Cough. Denies: Pleuritic Chest Pain, Sputum Cardiovascular: Reports: Dyspnea on Exertion, Orthopnea, Edema. Denies: Chest Pain, Palpitations Gastrointestinal: Reports: Diarrhea, Nausea. Denies: Abdominal Pain, Constipation, Vomiting Genitourinary: Reports: No Symptoms. Denies: Pain Musculoskeletal: Reports: Muscle Pain (generalized), Muscle Stiffness (generalized ) Skin: Reports: No Symptoms Psychiatric: Reports: No Symptoms. Denies: Confusion Neurological: Reports: Dizziness, Pre-Existing Deficit (left sided weakness 2/2 prior CVA), Weakness Hematologic/Lymphatic: Reports: No Symptoms Immunologic: Reports: No Symptoms Exam - Exam Exam: See Below - Vital Signs Vital Signs: Last Vital Signs Temp 98.0 F 01/16/20 07:34 Pulse 91 01/16/20 07:34 Resp 44 H 01/16/20 07:34 BP 132/90 01/16/20 07:34 Pulse Ox 87 L 01/16/20 07:34 Weight: 181 lb - Exam Quality Assessment: Supplemental Oxygen (15L Via NRB ), DVT Prophylaxis. No: Urinary Catheter General: Alert, Oriented, Cooperative, Moderate Distress (Tachypneic and just h ad episode of desaturation while attempting to get up to commode ) HEENT: Conjunctiva Clear, EACs Clear, Mucosa Moist & [place] Neck: Supple, Trachea Midline Lungs: Decreased Breath Sounds. No: Normal Respiratory Effort (tachypneic ), Rales, Rhonchi, Wheezing Cardiovascular: Regular Rate, Regular Rhythm, Other (Pacemaker ) GI/Abdominal Exam: Normal Bowel Sounds, Soft, Non-Tender (Female) Exam: Deferred Rectal (Female) Exam: Deferred Back Exam: Decreased Range of Motion Extremities: Normal Range of Motion, Non-Tender, Pedal Edema Peripheral Pulses: 2+: Radial (L), Radial (R) Skin: Warm, Dry, Intact Neurological: Cranial Nerves Intact (Grossly ) Neuro Extensive - Mental Status: Alert, Oriented x3 - Patient Data Lab Results Last 24 hrs: Laboratory Results - last 24 hr 01/16/20 01/16/20 01/16/20 Range/Units 08:15 08:25 08:25 WBC 7.80 (3.98-10.04) K/mm3 RBC 3.68 L (3.98-5.22) M/mm3 Hgb 11.5 (11.2-15.7) gm/dl Hct 34.5 (34.1-44.9) % MCV 93.8 (79.4-94.8) fl MCH 31.3 (25.6-32.2) pg MCHC 33.3 (32.2-35.5) g/dl RDW Std Deviation 50.3 H (36.4-46.3) fL Plt Count 192 (182-369) K/mm3 MPV 11.1 (9.4-12.3) fl Neut % (Auto) 87.0 H (34.0-71.1) % Lymph % (Auto) 8.2 L (19.3-51.7) % [place] % (Auto) 4.5 L (4.7-12.5) % Eos % (Auto) 0 L (0.7-5.8) Baso % (Auto) 0.3 (0.1-1.2) % Neut # (Auto) 6.79 H (1.56-6.13) K/mm3 Lymph # (Auto) 0.64 L (1.18-3.74) K/mm3 [place] # (Auto) 0.35 (0.24-0.36) K/mm3 Eos # (Auto) 0.00 L (0.04-0.36) K/mm3 Baso # (Auto) 0.02 (0.01-0.08) K/mm3 Manual Slide Review Abnormal smear D-Dimer, Quantitative (0.19-0.50) mg/L Puncture Site . ABG pH 7.36 (7.35-7.45) ABG pCO2 27.2 L (35.0-45.0) mmHg ABG pO2 71.0 L (80.0-100.0) mmHg ABG HCO3 14.8 L (22.0-26.0) meq/L ABG O2 Saturation 92.0 L (96.0-97.0) % ABG Base Excess -9.0 L (-2-2.0) Campbell Test Positive O2 Delivery Device Nasal cannula Oxygen Flow Rate 4.0 FiO2 0.00 L (21.00-100.00) % Sodium (136-145) mEq/L Potassium (3.5-5.1) mEq/L Chloride (98-107) mEq/L Carbon Dioxide (21-32) mEq/L Anion Gap (5-15) BUN (7-18) mg/dL Creatinine (0.55-1.02) mg/dL Est Cr Clr Drug Dosing mL/min Estimated GFR (MDRD) (>60) mL/min BUN/Creatinine Ratio (14-18) Glucose (83-115) mg/dL Calcium (8.5-10.1) mg/dL Ferritin (8-252) ng/ml Total Bilirubin (0.2-1.0) mg/dL AST (15-37) U/L ALT (14-59) U/L Alkaline Phosphatase (46-116) U/L Lactate Dehydrogenase (81-234) U/L Troponin I (0.00-0.056) ng/mL C-Reactive Protein 40.8 H* (<1.0) mg/dL NT-Pro-B Natriuret Pep (0-450) pg/mL Total Protein (6.4-8.2) g/dl Albumin (3.4-5.0) g/dl Globulin gm/dL Albumin/Globulin Ratio (1-2) 01/16/20 01/16/20 01/16/20 Range/Units 08:25 08:25 08:25 WBC (3.98-10.04) K/mm3 RBC (3.98-5.22) M/mm3 Hgb (11.2-15.7) gm/dl Hct (34.1-44.9) % MCV (79.4-94.8) fl MCH (25.6-32.2) pg MCHC (32.2-35.5) g/dl RDW Std Deviation (36.4-46.3) fL Plt Count (182-369) K/mm3 MPV (9.4-12.3) fl Neut % (Auto) (34.0-71.1) % Lymph % (Auto) (19.3-51.7) % [place] % (Auto) (4.7-12.5) % Eos % (Auto) (0.7-5.8) Baso % (Auto) (0.1-1.2) % Neut # (Auto) (1.56-6.13) K/mm3 Lymph # (Auto) (1.18-3.74) K/mm3 [place] # (Auto) (0.24-0.36) K/mm3 Eos # (Auto) (0.04-0.36) K/mm3 Baso # (Auto) (0.01-0.08) K/mm3 Manual Slide Review D-Dimer, Quantitative 0.63 H (0.19-0.50) mg/L Puncture Site ABG pH (7.35-7.45) ABG pCO2 (35.0-45.0) mmHg ABG pO2 (80.0-100.0) mmHg ABG HCO3 (22.0-26.0) meq/L ABG O2 Saturation (96.0-97.0) % ABG Base Excess (-2-2.0) Campbell Test O2 Delivery Device Oxygen Flow Rate FiO2 (21.00-100.00) % Sodium 136 (136-145) mEq/L Potassium 3.7 (3.5-5.1) mEq/L Chloride 103 (98-107) mEq/L Carbon Dioxide 17 L (21-32) mEq/L Anion Gap 19.7 H (5-15) BUN 33 H (7-18) mg/dL Creatinine 1.5 H (0.55-1.02) mg/dL Est Cr Clr Drug Dosing 20.69 mL/min Estimated GFR (MDRD) 33 (>60) mL/min BUN/Creatinine Ratio 22.0 H (14-18) Glucose 154 H (83-115) mg/dL Calcium 11.1 H (8.5-10.1) mg/dL Ferritin 572 H (8-252) ng/ml Total Bilirubin 0.7 (0.2-1.0) mg/dL AST 41 H (15-37) U/L ALT 53 (14-59) U/L Alkaline Phosphatase 146 H (46-116) U/L Lactate Dehydrogenase 296 H (81-234) U/L Troponin I 0.085 H* (0.00-0.056) ng/mL C-Reactive Protein (<1.0) mg/dL NT-Pro-B Natriuret Pep (0-450) pg/mL Total Protein 7.2 (6.4-8.2) g/dl Albumin 2.9 L (3.4-5.0) g/dl Globulin 4.3 gm/dL Albumin/Globulin Ratio 0.7 L (1-2) 01/16/20 Range/Units 09:40 WBC (3.98-10.04) K/mm3 RBC (3.98-5.22) M/mm3 Hgb (11.2-15.7) gm/dl Hct (34.1-44.9) % MCV (79.4-94.8) fl MCH (25.6-32.2) pg MCHC (32.2-35.5) g/dl RDW Std Deviation (36.4-46.3) fL Plt Count (182-369) K/mm3 MPV (9.4-12.3) fl Neut % (Auto) (34.0-71.1) % Lymph % (Auto) (19.3-51.7) % [place] % (Auto) (4.7-12.5) % Eos % (Auto) (0.7-5.8) Baso % (Auto) (0.1-1.2) % Neut # (Auto) (1.56-6.13) K/mm3 Lymph # (Auto) (1.18-3.74) K/mm3 [place] # (Auto) (0.24-0.36) K/mm3 Eos # (Auto) (0.04-0.36) K/mm3 Baso # (Auto) (0.01-0.08) K/mm3 Manual Slide Review D-Dimer, Quantitative (0.19-0.50) mg/L Puncture Site ABG pH (7.35-7.45) ABG pCO2 (35.0-45.0) mmHg ABG pO2 (80.0-100.0) mmHg ABG HCO3 (22.0-26.0) meq/L ABG O2 Saturation (96.0-97.0) % ABG Base Excess (-2-2.0) Campbell Test O2 Delivery Device Oxygen Flow Rate FiO2 (21.00-100.00) % Sodium (136-145) mEq/L Potassium (3.5-5.1) mEq/L Chloride (98-107) mEq/L Carbon Dioxide (21-32) mEq/L Anion Gap (5-15) BUN (7-18) mg/dL Creatinine (0.55-1.02) mg/dL Est Cr Clr Drug Dosing mL/min Estimated GFR (MDRD) (>60) mL/min BUN/Creatinine Ratio (14-18) Glucose (83-115) mg/dL Calcium (8.5-10.1) mg/dL Ferritin (8-252) ng/ml Total Bilirubin (0.2-1.0) mg/dL AST (15-37) U/L ALT (14-59) U/L Alkaline Phosphatase (46-116) U/L Lactate Dehydrogenase (81-234) U/L Troponin I (0.00-0.056) ng/mL C-Reactive Protein (<1.0) mg/dL NT-Pro-B Natriuret Pep 80971 H (0-450) pg/mL Total Protein (6.4-8.2) g/dl Albumin (3.4-5.0) g/dl Globulin gm/dL Albumin/Globulin Ratio (1-2) Result Diagrams: 01/16/20 08:25 01/16/20 08:25 Sepsis Event Note - Evaluation Sepsis Screening Result: No Definite Risk - Focused Exam Vital Signs: Vital Signs Temp Pulse Resp BP Pulse Ox 01/16/20 07:34 98.0 F 91 44 H 132/90 87 L - Problem List (1) CHF (congestive heart failure) SNOMED Code(s): 31242930 ICD Code: I50.9 - HEART FAILURE, UNSPECIFIED Status: Acute Priority: High Current Visit: Yes Qualifiers: Heart failure type: unspecified Heart failure chronicity: acute on chronic Qualified Code(s): I50.9 - Heart failure, unspecified (2) Hypoxia SNOMED Code(s): 559163577 ICD Code: R09.02 - HYPOXEMIA Status: Acute Priority: High Current Visit: Yes (3) Pneumonia due to COVID-19 virus SNOMED Code(s): 968168322688284041 ICD Code: U07.1 - COVID-19; J12.89 - OTHER VIRAL PNEUMONIA Status: Acute Priority: High Current Visit: Yes (4) Renal insufficiency SNOMED Code(s): 937364377, 775174115 ICD Code: N28.9 - DISORDER OF KIDNEY AND URETER, UNSPECIFIED Status: Acute Priority: High Current Visit: Yes (5) Acute hypoxemic respiratory failure SNOMED Code(s): 340500588 ICD Code: J96.01 - ACUTE RESPIRATORY FAILURE WITH HYPOXIA Status: Acute Priority: High Current Visit: Yes (6) Acute kidney injury superimposed on chronic kidney disease SNOMED Code(s): 76637096 ICD Code: N17.9 - ACUTE KIDNEY FAILURE, UNSPECIFIED; N18.9 - CHRONIC KIDNEY DISEASE, UNSPECIFIED Status: Acute Priority: High Current Visit: Yes (7) Cardiac pacemaker SNOMED Code(s): 312171147 ICD Code: Z95.0 - PRESENCE OF CARDIAC PACEMAKER Status: Chronic Priority: Medium Current Visit: No (8) GERD (gastroesophageal reflux disease) SNOMED Code(s): 466588638 ICD Code: K21.9 - GASTRO-ESOPHAGEAL REFLUX DISEASE WITHOUT ESOPHAGITIS Status: Chronic Priority: Low Current Visit: No Qualifiers: Esophagitis presence: with esophagitis (9) HLD (hyperlipidemia) SNOMED Code(s): 66577659 ICD Code: E78.5 - HYPERLIPIDEMIA, UNSPECIFIED Status: Chronic Priority: Low Current Visit: No Qualifiers: Hyperlipidemia type: unspecified Qualified Code(s): E78.5 - Hyperlipidemia, unspecified (10) HTN (hypertension) SNOMED Code(s): 63441179 ICD Code: I10 - ESSENTIAL (PRIMARY) HYPERTENSION Status: Chronic Priority: Low Current Visit: No Qualifiers: Hypertension type: unspecified Qualified Code(s): I10 - Essential (primary) hypertension (11) History of CVA (cerebrovascular accident) SNOMED Code(s): 812978786 ICD Code: Z86.73 - PRSNL HX OF TIA (TIA), AND CEREB INFRC W/O RESID DEFICITS Status: Chronic Priority: Low Current Visit: No (12) History of DVT of lower extremity SNOMED Code(s): 462445103 ICD Code: Z86.718 - PERSONAL HISTORY OF OTHER VENOUS THROMBOSIS AND EMBOLISM Status: Chronic Priority: Low Current Visit: No (13) History of colon cancer SNOMED Code(s): 283417478 ICD Code: Z85.038 - PERSONAL HISTORY OF MALIGNANT NEOPLASM OF LARGE INTESTINE Status: Chronic Priority: Low Current Visit: No (14) Hypertensive heart disease SNOMED Code(s): 73485123 ICD Code: I11.9 - HYPERTENSIVE HEART DISEASE WITHOUT HEART FAILURE Status: Chronic Priority: Medium Current Visit: Yes (15) Immunosuppression due to chronic steroid use SNOMED Code(s): 343987789, 822445750 ICD Code: Z79.52 - ADHESION TESTER (CURRENT) USE OF SYSTEMIC STEROIDS Status: Chronic Priority: High Current Visit: Yes (16) Carotid artery disease SNOMED Code(s): 905664161 ICD Code: I77.9 - DISORDER OF ARTERIES AND ARTERIOLES, UNSPECIFIED Status: Chronic Priority: Low Current Visit: No Qualifiers: Laterality: unspecified laterality Qualified Code(s): I77.9 - Disorder of arteries and arterioles, unspecified (17) Hypothyroidism SNOMED Code(s): 92965898 ICD Code: E03.9 - HYPOTHYROIDISM, UNSPECIFIED Status: Chronic Priority: Low Current Visit: No Qualifiers: Hypothyroidism type: unspecified Qualified Code(s): E03.9 - Hypothyroidism, unspecified (18) Elevated troponin SNOMED Code(s): 094500680, 997888561, 600218772 ICD Code: R77.8 - OTHER SPECIFIED ABNORMALITIES OF PLASMA PROTEINS Status: Acute Priority: High Current Visit: Yes (19) Generalized weakness SNOMED Code(s): 97201207 ICD Code: R53.1 - WEAKNESS Status: Acute Priority: High Current Visit: Yes Problem List Initiated/Reviewed/Updated: Yes Orders Last 24hrs: Active Orders 24 hr Category Date Time Status EKG 12 Lead [EKG Documentation Completion] [RC] STAT Care 01/16/20 07:47 Active Oxygen Therapy [RC] ASDIRECTED Care 01/16/20 07:47 Active Peripheral IV Care [RC] . DIRECTED Care 01/16/20 07:48 Active Chest 1V Frontal [CR] Stat Exams 01/16/20 07:46 Taken Sodium Chloride 0.9% [Saline Flush] Med 01/16/20 07:47 Active 10 ml FLUSH ASDIRECTED PRN Peripheral IV Insertion Adult [OM.PC] Stat Oth 01/16/20 07:47 Ordered Medication Orders Sodium Chloride (Saline Flush) 10 ml FLUSH ASDIRECTED PRN PRN Reason: Keep Vein Open Last Admin: 01/16/20 09:31 Dose: 10 ml Documented by: [email or web address] Assessment/Plan Comment:: Assessment on day of admission (01/16/20): -84 yo female COVID-19 positive on 01/14/20 who returns to ED with worsening weakness and hypoxia -CXR worsened since last visit. Now showing pulmonary vascular congestion and worsening infiltrates -Oxygen saturations of 87-88 on 2L via NC -No leukocytosis, CRP 40.8, D-Dimer 0.63, Gerritin 572, LDH 2.96 -GFR 33, Creatinine 1.5 (Prior creatinine from 2019 range is 1.1-1.5 with GFR of 33-47) -Troponin 0.85, ProBNP 46714 -Started on dexamethasone 6mg and Remdesivir 200mg in ED -Requiring 15L via NRB on floor -Up to commode and desaturated into 60's -12-lead EKG shows paced rhythm -Multiple comorbidities - immunosuppressed due to RA PLAN: Pneumonia due to COVID-19 virus Hypoxia Acute hypoxemic respiratory failure Immunosuppression due to chronic steroid use Generalized weakness -Continue Remdesivir - day 1 of 5 -Continue dexamethasone - day 1 of 10 or until discharge -Hold convalescent plasma for now due to concerns over fluid status with CHF exacerbation -Start BiPAP -Airborne/contact isolation -Start azithromycin - day 1 of 3 -Start Rocephin - day 1 of 5 -IS/Acapella -RT consult -Sales Representative Publications consult -Labs as ordered -Monitor blood glucose with daily lab draws CHF (congestive heart failure) Elevated troponin Cardiac pacemaker HLD (hyperlipidemia) HTN (hypertension) Hypertensive heart disease Carotid artery disease -Hold home lasix -Lasix 40mg IVP BID -Insert joseph catheter for I&O monitoring -Reconcile home medications -Monitor troponin- likely elevated due to stress reaction -Echo as soon as able to be obtained -Telemetry -Resume home ASA and metoprolol -Monitor electrolytes Renal insufficiency Acute kidney injury superimposed on chronic kidney disease -Caution with IV fluids due to CHF exacerbation -PO intake History of DVT of lower extremity History of CVA (cerebrovascular accident) -Resume home Xarelto GERD (gastroesophageal reflux disease) -Resume home omeprazole History of colon cancer -No current concerns Hypothyroidism -Check TSH -Resume home levothyroxine Code Status: Full code PCP: Cintia Rosales NP DVT prophylaxis: Home xarelto Disposition: Patient admitted to [facility] on telemetry for management of COVID-19 pneumonia with CHF exacerbation Prognosis: Poor prognosis given multiple comorbidities and prior immunocompromised state - Mortality Measure Prognosis:: Poor
[2020-01-16] MEDS ORDERED: Azithromycin 500 MG in Sodium Chloride 0.9% 250 ML IV SCH (10:30)
[2020-01-16] MEDS ORDERED: cefTRIAXone 2 GM in Sodium Chloride 0.9% 100 ML IV SCH ×3 (10:30→17:00)
[2020-01-16] MEDS: Azithromycin 500 MG in Sodium Chloride 0.9% 250 ML IV SCH (14:01)
[2020-01-16] MEDS ORDERED: Furosemide 40 MG/4 ML VIAL IVPUSH ONE (15:00)
[2020-01-16] MEDS: cefTRIAXone 2 GM in Sodium Chloride 0.9% 100 ML IV SCH (15:14)
[2020-01-16] MEDS ORDERED: LORazepam 1 MG Tab PO PRN (20:19)
[2020-01-16] MEDS: Furosemide 40 MG/4 ML VIAL IVPUSH SCH (20:20)
[2020-01-16] MEDS: Latanoprost 0.005% Ophth Soln 2.5 ML Bottle EYEBOTH SCH (20:36)
[2020-01-16] MEDS: Acetaminophen 325 MG Tab PO PRN (20:37)
[2020-01-16] MEDS ORDERED: Brimonidine 0.2% Ophth Soln 5 ML Bottle EYEBOTH SCH (21:00)
[2020-01-16] MEDS ORDERED: Dorzolamide 2% Ophth Soln 10 ML Bottle EYEBOTH SCH (21:00)
[2020-01-16] MEDS ORDERED: Non-Formulary Medication 1 Each (Brinzolamide/Brimonidine Tart [Simbrinza 1%-0.2% Eye Drop EYEBOTH SCH (21:00)
[2020-01-16] MEDS ORDERED: Metoprolol Tartrate 25 MG Tab PO ONE (21:06)
[2020-01-16] MEDS ORDERED: Metoprolol Tartrate 5 MG/5 ML SDV IVPUSH PRN (21:08)
[2020-01-16] MEDS ORDERED: hydrALAZINE 20 MG/ML SDV IVPUSH PRN (21:09)
--- NOTE | 2020-01-16 21:20 | PCM.SN.2 ---
- Free Text/Narrative Note: Called by patient's nurse secondary to continued hypoxemia on BiPAP. Patient was transferred to the ICU and started on high flow nasal cannula. Oxygenation did improve on high flow nasal cannula. She was given 40 mg of IV Lasix and is breathing more comfortably. Oxygen saturations on high flow nasal cannula at 60 L and 85% were in the low 90s. Patient was also noted to be tachycardic and blood pressure was elevated. It appears she has not taken her metoprolol at least for a day or possibly longer. She will be given metoprolol tartrate 25 mg 1 time and as needed Lopressor 5 mg IV for sustained heart rate over 110. Also hydralazine 10 mg IV for blood pressures greater than 180/100. Follow urine output closely tonight and may consider starting a Lasix drip.
[2020-01-16] MEDS: Simvastatin 40 MG Tab PO SCH (21:21)
[2020-01-16] MEDS: Dorzolamide/Timolol 2%-0.5% Ophth Soln 10 ML Bottle EYEBOTH SCH (21:21)
[2020-01-17] MEDS: Acetaminophen 325 MG Tab PO PRN ×2 (02:02→09:54)
--- NOTE | 2020-01-17 04:07 | PCM.SN.2 ---
- Free Text/Narrative Note: Called by nursing at 0300 hrs. due to patient's worsening respiratory status. Patient is currently on high flow nasal cannula at 60 L and 90% FiO2 with a 15 L nonrebreather mask over it. Patient's oxygen saturations are in the high 80s to low 90s, but she has been rapidly worsening since admission. She continues to have high respiration rate with increased work of breathing. She does not tolerate proning but tolerates laying on her left side somewhat. Concern for patient's continued decline requiring intubation was expressed and I spoke with the patient in regards to her CODE STATUS and prognosis. After I explained to the patient her condition and likelihood of mortality both with and without intubation she elected to change her CODE STATUS to DNR/DNI. At this time we will continue aggressive respiratory care and support up to the point of intubation. Her daughter, Vicki Jaimes, was notified of her mother's condition and wishes and she was in full agreement.
[2020-01-17] MEDS: Levothyroxine 125 MCG Tab PO SCH (06:00)
[2020-01-17] MEDS ORDERED: Rivaroxaban 10 MG Tab PO SCH (07:00)
--- NOTE | 2020-01-17 07:37 | PCM.PN ---
- General Info Date of Service: 01/17/20 Admission Dx/Problem (Free Text): COVID +, Dyspnea Subjective Update: She still requiring significant amount of O2 to maintain adequate O2 sat. She is not confused and aware that she is not getting better. Her D-dimer is at 4.13 today. She was 0.63 yesterday. Her CRP had gone up slight from 40.8 to 43.7. Patient did not rest well last night. She is tachypneic and short of breath. Functional Status: Reports: Pain Controlled - Review of Systems General: Denies: Chills HEENT: Reports: No Symptoms Pulmonary: Reports: Shortness of Breath, Cough Cardiovascular: Reports: Dyspnea on Exertion. Denies: Chest Pain Gastrointestinal: Reports: Decreased Appetite. Denies: Abdominal Pain, Nausea, Vomiting Genitourinary: Denies: Frequency Musculoskeletal: Denies: Neck Pain Skin: Denies: Jaundice, Diaphoresis, Rash Neurological: Denies: Confusion Psychiatric: Denies: Depression, Anxiety - Patient Data Vitals - Most Recent: Last Vital Signs Temp 35.9 C L 01/17/20 04:00 Pulse 103 H 01/16/20 21:21 Resp 30 H 01/17/20 04:00 BP 110/41 L 01/17/20 04:00 Pulse Ox 94 L 01/17/20 06:41 Weight - Most Recent: 76.451 kg I&O - Last 24 Hours: Intake & Output 01/16/20 01/17/20 01/17/20 22:59 06:59 14:59 Intake Total 650 Output Total 1125 500 Balance -475 -500 Lab Results Last 24 Hours: Laboratory Results - last 24 hr 01/16/20 01/16/20 01/16/20 Range/Units 08:15 08:25 08:25 WBC 7.80 (3.98-10.04) K/mm3 RBC 3.68 L (3.98-5.22) M/mm3 Hgb 11.5 (11.2-15.7) gm/dl Hct 34.5 (34.1-44.9) % MCV 93.8 (79.4-94.8) fl MCH 31.3 (25.6-32.2) pg MCHC 33.3 (32.2-35.5) g/dl RDW Std Deviation 50.3 H (36.4-46.3) fL Plt Count 192 (182-369) K/mm3 MPV 11.1 (9.4-12.3) fl Neut % (Auto) 87.0 H (34.0-71.1) % Lymph % (Auto) 8.2 L (19.3-51.7) % Caroline % (Auto) 4.5 L (4.7-12.5) % Eos % (Auto) 0 L (0.7-5.8) Baso % (Auto) 0.3 (0.1-1.2) % Neut # (Auto) 6.79 H (1.56-6.13) K/mm3 Lymph # (Auto) 0.64 L (1.18-3.74) K/mm3 Caroline # (Auto) 0.35 (0.24-0.36) K/mm3 Eos # (Auto) 0.00 L (0.04-0.36) K/mm3 Baso # (Auto) 0.02 (0.01-0.08) K/mm3 Manual Slide Review Abnormal smear D-Dimer, Quantitative (0.19-0.50) mg/L Puncture Site . ABG pH 7.36 (7.35-7.45) ABG pCO2 27.2 L (35.0-45.0) mmHg ABG pO2 71.0 L (80.0-100.0) mmHg ABG HCO3 14.8 L (22.0-26.0) meq/L ABG O2 Saturation 92.0 L (96.0-97.0) % ABG Base Excess -9.0 L (-2-2.0) Campbell Test Positive O2 Delivery Device Nasal cannula Oxygen Flow Rate 4.0 FiO2 0.00 L (21.00-100.00) % Sodium (136-145) mEq/L Potassium (3.5-5.1) mEq/L Chloride (98-107) mEq/L Carbon Dioxide (21-32) mEq/L Anion Gap (5-15) BUN (7-18) mg/dL Creatinine (0.55-1.02) mg/dL Est Cr Clr Drug Dosing mL/min Estimated GFR (MDRD) (>60) mL/min BUN/Creatinine Ratio (14-18) Glucose (83-115) mg/dL Calcium (8.5-10.1) mg/dL Phosphorus (2.6-4.7) mg/dL Magnesium (1.8-2.4) mg/dl Ferritin (8-252) ng/ml Total Bilirubin (0.2-1.0) mg/dL AST (15-37) U/L ALT (14-59) U/L Alkaline Phosphatase (46-116) U/L Lactate Dehydrogenase (81-234) U/L CK-MB (CK-2) (0-3.6) ng/ml Troponin I (0.00-0.056) ng/mL C-Reactive Protein 40.8 H* (<1.0) mg/dL NT-Pro-B Natriuret Pep (0-450) pg/mL Total Protein (6.4-8.2) g/dl Albumin (3.4-5.0) g/dl Globulin gm/dL Albumin/Globulin Ratio (1-2) Vitamin D 25-Hydroxy (30.0-100.0) ng/ml TSH 3rd Generation (0.358-3.74) uIU/mL Blood Type 01/16/20 01/16/20 01/16/20 Range/Units 08:25 08:25 08:25 WBC (3.98-10.04) K/mm3 RBC (3.98-5.22) M/mm3 Hgb (11.2-15.7) gm/dl Hct (34.1-44.9) % MCV (79.4-94.8) fl MCH (25.6-32.2) pg MCHC (32.2-35.5) g/dl RDW Std Deviation (36.4-46.3) fL Plt Count (182-369) K/mm3 MPV (9.4-12.3) fl Neut % (Auto) (34.0-71.1) % Lymph % (Auto) (19.3-51.7) % Caroline % (Auto) (4.7-12.5) % Eos % (Auto) (0.7-5.8) Baso % (Auto) (0.1-1.2) % Neut # (Auto) (1.56-6.13) K/mm3 Lymph # (Auto) (1.18-3.74) K/mm3 Caroline # (Auto) (0.24-0.36) K/mm3 Eos # (Auto) (0.04-0.36) K/mm3 Baso # (Auto) (0.01-0.08) K/mm3 Manual Slide Review D-Dimer, Quantitative 0.63 H (0.19-0.50) mg/L Puncture Site ABG pH (7.35-7.45) ABG pCO2 (35.0-45.0) mmHg ABG pO2 (80.0-100.0) mmHg ABG HCO3 (22.0-26.0) meq/L ABG O2 Saturation (96.0-97.0) % ABG Base Excess (-2-2.0) Campbell Test O2 Delivery Device Oxygen Flow Rate FiO2 (21.00-100.00) % Sodium 136 (136-145) mEq/L Potassium 3.7 (3.5-5.1) mEq/L Chloride 103 (98-107) mEq/L Carbon Dioxide 17 L (21-32) mEq/L Anion Gap 19.7 H (5-15) BUN 33 H (7-18) mg/dL Creatinine 1.5 H (0.55-1.02) mg/dL Est Cr Clr Drug Dosing 20.69 mL/min Estimated GFR (MDRD) 33 (>60) mL/min BUN/Creatinine Ratio 22.0 H (14-18) Glucose 154 H (83-115) mg/dL Calcium 11.1 H (8.5-10.1) mg/dL Phosphorus (2.6-4.7) mg/dL Magnesium (1.8-2.4) mg/dl Ferritin 572 H (8-252) ng/ml Total Bilirubin 0.7 (0.2-1.0) mg/dL AST 41 H (15-37) U/L ALT 53 (14-59) U/L Alkaline Phosphatase 146 H (46-116) U/L Lactate Dehydrogenase 296 H (81-234) U/L CK-MB (CK-2) (0-3.6) ng/ml Troponin I 0.085 H* (0.00-0.056) ng/mL C-Reactive Protein (<1.0) mg/dL NT-Pro-B Natriuret Pep (0-450) pg/mL Total Protein 7.2 (6.4-8.2) g/dl Albumin 2.9 L (3.4-5.0) g/dl Globulin 4.3 gm/dL Albumin/Globulin Ratio 0.7 L (1-2) Vitamin D 25-Hydroxy (30.0-100.0) ng/ml TSH 3rd Generation (0.358-3.74) uIU/mL Blood Type 01/16/20 01/16/20 01/16/20 Range/Units 08:25 08:25 08:25 WBC (3.98-10.04) K/mm3 RBC (3.98-5.22) M/mm3 Hgb (11.2-15.7) gm/dl Hct (34.1-44.9) % MCV (79.4-94.8) fl MCH (25.6-32.2) pg MCHC (32.2-35.5) g/dl RDW Std Deviation (36.4-46.3) fL Plt Count (182-369) K/mm3 MPV (9.4-12.3) fl Neut % (Auto) (34.0-71.1) % Lymph % (Auto) (19.3-51.7) % Caroline % (Auto) (4.7-12.5) % Eos % (Auto) (0.7-5.8) Baso % (Auto) (0.1-1.2) % Neut # (Auto) (1.56-6.13) K/mm3 Lymph # (Auto) (1.18-3.74) K/mm3 Caroline # (Auto) (0.24-0.36) K/mm3 Eos # (Auto) (0.04-0.36) K/mm3 Baso # (Auto) (0.01-0.08) K/mm3 Manual Slide Review D-Dimer, Quantitative (0.19-0.50) mg/L Puncture Site ABG pH (7.35-7.45) ABG pCO2 (35.0-45.0) mmHg ABG pO2 (80.0-100.0) mmHg ABG HCO3 (22.0-26.0) meq/L ABG O2 Saturation (96.0-97.0) % ABG Base Excess (-2-2.0) Campbell Test O2 Delivery Device Oxygen Flow Rate FiO2 (21.00-100.00) % Sodium (136-145) mEq/L Potassium (3.5-5.1) mEq/L Chloride (98-107) mEq/L Carbon Dioxide (21-32) mEq/L Anion Gap (5-15) BUN (7-18) mg/dL Creatinine (0.55-1.02) mg/dL Est Cr Clr Drug Dosing mL/min Estimated GFR (MDRD) (>60) mL/min BUN/Creatinine Ratio (14-18) Glucose (83-115) mg/dL Calcium (8.5-10.1) mg/dL Phosphorus (2.6-4.7) mg/dL Magnesium (1.8-2.4) mg/dl Ferritin (8-252) ng/ml Total Bilirubin (0.2-1.0) mg/dL AST (15-37) U/L ALT (14-59) U/L Alkaline Phosphatase (46-116) U/L Lactate Dehydrogenase (81-234) U/L CK-MB (CK-2) (0-3.6) ng/ml Troponin I (0.00-0.056) ng/mL C-Reactive Protein (<1.0) mg/dL NT-Pro-B Natriuret Pep (0-450) pg/mL Total Protein (6.4-8.2) g/dl Albumin (3.4-5.0) g/dl Globulin gm/dL Albumin/Globulin Ratio (1-2) Vitamin D 25-Hydroxy 30.2 (30.0-100.0) ng/ml TSH 3rd Generation 1.784 (0.358-3.74) uIU/mL Blood Type A POSITIVE 01/16/20 01/16/20 01/16/20 Range/Units 09:40 13:05 13:05 WBC (3.98-10.04) K/mm3 RBC (3.98-5.22) M/mm3 Hgb (11.2-15.7) gm/dl Hct (34.1-44.9) % MCV (79.4-94.8) fl MCH (25.6-32.2) pg MCHC (32.2-35.5) g/dl RDW Std Deviation (36.4-46.3) fL Plt Count (182-369) K/mm3 MPV (9.4-12.3) fl Neut % (Auto) (34.0-71.1) % Lymph % (Auto) (19.3-51.7) % Caroline % (Auto) (4.7-12.5) % Eos % (Auto) (0.7-5.8) Baso % (Auto) (0.1-1.2) % Neut # (Auto) (1.56-6.13) K/mm3 Lymph # (Auto) (1.18-3.74) K/mm3 Caroline # (Auto) (0.24-0.36) K/mm3 Eos # (Auto) (0.04-0.36) K/mm3 Baso # (Auto) (0.01-0.08) K/mm3 Manual Slide Review D-Dimer, Quantitative (0.19-0.50) mg/L Puncture Site ABG pH (7.35-7.45) ABG pCO2 (35.0-45.0) mmHg ABG pO2 (80.0-100.0) mmHg ABG HCO3 (22.0-26.0) meq/L ABG O2 Saturation (96.0-97.0) % ABG Base Excess (-2-2.0) Campbell Test O2 Delivery Device Oxygen Flow Rate FiO2 (21.00-100.00) % Sodium (136-145) mEq/L Potassium (3.5-5.1) mEq/L Chloride (98-107) mEq/L Carbon Dioxide (21-32) mEq/L Anion Gap (5-15) BUN (7-18) mg/dL Creatinine (0.55-1.02) mg/dL Est Cr Clr Drug Dosing mL/min Estimated GFR (MDRD) (>60) mL/min BUN/Creatinine Ratio (14-18) Glucose (83-115) mg/dL Calcium (8.5-10.1) mg/dL Phosphorus (2.6-4.7) mg/dL Magnesium (1.8-2.4) mg/dl Ferritin (8-252) ng/ml Total Bilirubin (0.2-1.0) mg/dL AST (15-37) U/L ALT (14-59) U/L Alkaline Phosphatase (46-116) U/L Lactate Dehydrogenase (81-234) U/L CK-MB (CK-2) 2.4 (0-3.6) ng/ml Troponin I 0.109 H* (0.00-0.056) ng/mL C-Reactive Protein (<1.0) mg/dL NT-Pro-B Natriuret Pep 90469 H (0-450) pg/mL Total Protein (6.4-8.2) g/dl Albumin (3.4-5.0) g/dl Globulin gm/dL Albumin/Globulin Ratio (1-2) Vitamin D 25-Hydroxy (30.0-100.0) ng/ml TSH 3rd Generation (0.358-3.74) uIU/mL Blood Type 01/17/20 01/17/20 01/17/20 Range/Units 04:18 04:18 04:18 WBC 8.06 (3.98-10.04) K/mm3 RBC 3.55 L (3.98-5.22) M/mm3 Hgb 11.2 (11.2-15.7) gm/dl Hct 32.9 L (34.1-44.9) % MCV 92.7 (79.4-94.8) fl MCH 31.5 (25.6-32.2) pg MCHC 34.0 (32.2-35.5) g/dl RDW Std Deviation 49.1 H (36.4-46.3) fL Plt Count 210 (182-369) K/mm3 MPV 11.1 (9.4-12.3) fl Neut % (Auto) 84.0 H (34.0-71.1) % Lymph % (Auto) 9.6 L (19.3-51.7) % Caroline % (Auto) 6.0 (4.7-12.5) % Eos % (Auto) 0 L (0.7-5.8) Baso % (Auto) 0.4 (0.1-1.2) % Neut # (Auto) 6.78 H (1.56-6.13) K/mm3 Lymph # (Auto) 0.77 L (1.18-3.74) K/mm3 Caroline # (Auto) 0.48 H (0.24-0.36) K/mm3 Eos # (Auto) 0.00 L (0.04-0.36) K/mm3 Baso # (Auto) 0.03 (0.01-0.08) K/mm3 Manual Slide Review Abnormal smear D-Dimer, Quantitative 4.13 H (0.19-0.50) mg/L Puncture Site ABG pH (7.35-7.45) ABG pCO2 (35.0-45.0) mmHg ABG pO2 (80.0-100.0) mmHg ABG HCO3 (22.0-26.0) meq/L ABG O2 Saturation (96.0-97.0) % ABG Base Excess (-2-2.0) Campbell Test O2 Delivery Device Oxygen Flow Rate FiO2 (21.00-100.00) % Sodium 134 L (136-145) mEq/L Potassium 3.3 L (3.5-5.1) mEq/L Chloride 101 (98-107) mEq/L Carbon Dioxide 18 L (21-32) mEq/L Anion Gap 18.3 H (5-15) BUN 36 H (7-18) mg/dL Creatinine 1.5 H (0.55-1.02) mg/dL Est Cr Clr Drug Dosing 20.69 mL/min Estimated GFR (MDRD) 33 (>60) mL/min BUN/Creatinine Ratio 24.0 H (14-18) Glucose 102 (83-115) mg/dL Calcium 9.9 (8.5-10.1) mg/dL Phosphorus 3.3 (2.6-4.7) mg/dL Magnesium 1.6 L (1.8-2.4) mg/dl Ferritin (8-252) ng/ml Total Bilirubin 0.4 (0.2-1.0) mg/dL AST 40 H (15-37) U/L ALT 43 (14-59) U/L Alkaline Phosphatase 129 H (46-116) U/L Lactate Dehydrogenase (81-234) U/L CK-MB (CK-2) (0-3.6) ng/ml Troponin I 0.281 H* (0.00-0.056) ng/mL C-Reactive Protein 43.7 H* (<1.0) mg/dL NT-Pro-B Natriuret Pep (0-450) pg/mL Total Protein 6.4 (6.4-8.2) g/dl Albumin 2.3 L (3.4-5.0) g/dl Globulin 4.1 gm/dL Albumin/Globulin Ratio 0.6 L (1-2) Vitamin D 25-Hydroxy (30.0-100.0) ng/ml TSH 3rd Generation (0.358-3.74) uIU/mL Blood Type Med Orders - Current: Current Medications Acetaminophen (Tylenol) 650 mg PO Q4H PRN PRN Reason: Fever Last Admin: 01/17/20 02:02 Dose: 650 mg Documented by: Aspirin (Halfprin) 81 mg PO DAILY [facility] Cholecalciferol (Vitamin D3) 25 mcg PO DAILY [facility] Cyanocobalamin (Vitamin B12) 1,000 mcg PO DAILY [facility] Dexamethasone (Dexamethasone) 6 mg PO DAILY [facility] Stop: 01/26/20 09:01 Dorzolamide/Timolol (Cosopt 2%-0.5% Ophth Soln) 0 ml EYEBOTH BID [facility] Last Admin: 01/16/20 21:21 Dose: Not Given Documented by: Folic Acid (Folic Acid) 0.5 mg PO DAILY [facility] Furosemide (Lasix) 40 mg IVPUSH BID [facility] Last Admin: 01/16/20 20:20 Dose: 40 mg Documented by: Hydralazine HCl (Apresoline) 10 mg IVPUSH Q4H PRN PRN Reason: Hypertension Azithromycin 500 mg/ Sodium (Chloride) 250 mls @ 250 mls/hr IV Q24H [facility] Stop: 01/18/20 15:29 Last Admin: 01/16/20 14:01 Dose: 250 mls/hr Documented by: Remdesivir 100 mg/ Sodium (Chloride) 100 mls @ 100 mls/hr IV Q24H [facility] Stop: 01/20/20 16:59 Ceftriaxone Sodium 2 gm/ (Sodium Chloride) 100 mls @ 200 mls/hr IV Q24H [facility] Stop: 01/20/20 15:29 Last Admin: 01/16/20 15:14 Dose: 200 mls/hr Documented by: Latanoprost (Xalatan 0.005% Ophth Soln) 0 ml EYEBOTH BEDTIME [facility] Last Admin: 01/16/20 20:36 Dose: 1 drop Documented by: Levothyroxine Sodium (Levothyroxine) 125 mcg PO ACBREAKFAST [facility] Last Admin: 01/17/20 06:00 Dose: 125 mcg Documented by: Lorazepam (Ativan) 1 mg PO Q2H PRN PRN Reason: Anxiety Last Admin: 01/16/20 20:37 Dose: 1 mg Documented by: Losartan Potassium (Cozaar) 100 mg PO DAILY [facility] Metoprolol Succinate (Toprol Xl) 50 mg PO DAILY [facility] Metoprolol Tartrate (Lopressor) 5 mg IVPUSH Q4H PRN PRN Reason: Tachycardia Non-Formulary Medication (Brinzolamide/Brimonidine Tart [Simbrinza 1%-0.2% Eye Drops]) 1 drop EYEBOTH BID [facility] Rivaroxaban (Xarelto) 20 mg PO DAILY [facility] Simvastatin (Zocor) 40 mg PO BEDTIME [facility] Last Admin: 01/16/20 21:21 Dose: 40 mg Documented by: Sodium Chloride (Saline Flush) 10 ml FLUSH ASDIRECTED PRN PRN Reason: Keep Vein Open Last Admin: 01/16/20 09:31 Dose: 10 ml Documented by: Discontinued Medications Dexamethasone (Decadron) 6 mg IVPUSH ONETIME ONE Stop: 01/16/20 09:38 Last Admin: 01/16/20 10:17 Dose: 6 mg Documented by: Furosemide (Lasix) 40 mg IVPUSH ONETIME ONE Stop: 01/16/20 10:27 Last Admin: 01/16/20 15:58 Dose: Not Given Documented by: Furosemide (Lasix) 40 mg IVPUSH ONETIME ONE Stop: 01/16/20 15:01 Last Admin: 01/16/20 15:56 Dose: 40 mg Documented by: Remdesivir 200 mg/ Sodium (Chloride) 250 mls @ 250 mls/hr IV ONETIME ONE Stop: 01/16/20 10:13 Last Admin: 01/16/20 12:12 Dose: 250 mls/hr Documented by: Remdesivir 100 mg/ Sodium (Chloride) 100 mls @ 100 mls/hr IV Q24H [facility] Stop: 01/20/20 11:59 Azithromycin 500 mg/ Sodium (Chloride) 250 mls @ 250 mls/hr IV Q24H [facility] Stop: 01/18/20 11:29 Last Admin: 01/16/20 17:40 Dose: Not Given Documented by: Ceftriaxone Sodium 2 gm/ (Sodium Chloride) 100 mls @ 200 mls/hr IV Q24H [facility] Stop: 01/20/20 10:59 Last Admin: 01/16/20 17:40 Dose: Not Given Documented by: Remdesivir 200 mg/ Sodium (Chloride) 250 mls @ 250 mls/hr IV ONETIME ONE Stop: 01/16/20 11:59 Last Admin: 01/16/20 15:58 Dose: Not Given Documented by: Ceftriaxone Sodium 2 gm/ (Sodium Chloride) 100 mls @ 200 mls/hr IV Q24H [facility] Stop: 01/20/20 17:29 Ceftriaxone Sodium 2 gm/ (Sodium Chloride) 100 mls @ 200 mls/hr IV Q24H [facility] Stop: 01/20/20 14:29 Last Admin: 01/16/20 17:40 Dose: Not Given Documented by: Remdesivir 200 mg/ Sodium (Chloride) 250 mls @ 250 mls/hr IV ONETIME ONE Stop: 01/16/20 16:59 Last Admin: 01/16/20 17:40 Dose: Not Given Documented by: Metoprolol Tartrate (Lopressor) 25 mg PO ONETIME ONE Stop: 01/16/20 21:07 Last Admin: 01/16/20 21:21 Dose: 25 mg Documented by: Non-Formulary Medication (Brinzolamide/Brimonidine Tart [Simbrinza 1%-0.2% Eye Drops]) 1 drop EYEBOTH BID [facility] Non-Formulary Medication (Folic Acid) 400 mcg PO DAILY [facility] Rivaroxaban (Xarelto) 20 mg PO WITHBREAKFAST [facility] - Exam Quality Assessment: Supplemental Oxygen, Urine Catheter General: Alert, Cooperative, Moderate Distress HEENT: Pupils Equal, Pupils Reactive, Mucous Membr. Moist/[place] Neck: Supple Lungs: Decreased Breath Sounds, Crackles, Other (tachypneic) Cardiovascular: Regular Rate, Regular Rhythm GI/Abdominal Exam: Normal Bowel Sounds, Soft, Non-Tender, No Organomegaly, No Distention, No Abnormal Bruit, No Mass (Female) Exam: Other (indwelling joseph catheter) Back Exam: Normal Inspection, Decreased Range of Motion Extremities: Normal Inspection, Normal Range of Motion, Non-Tender, No Pedal Edema, Normal Capillary Refill Peripheral Pulses: 2+: Dorsalis Pedis (L), Dorsalis Pedis (R) Skin: Warm, Dry, Intact Neurological: No New Focal Deficit Psy/Mental Status: Alert, Normal Affect, Normal Mood Sepsis Event Note - Evaluation Sepsis Screening Result: Sepsis Risk - Focused Exam Vital Signs: Vital Signs Temp Temp Pulse Resp BP BP Pulse Ox 01/17/20 06:41 01/17/20 04:00 35.9 C L 30 H 110/41 L 89 L 01/17/20 02:02 38.7 C H 01/17/20 02:00 38.7 C H 30 H 148/65 H 94 L 01/17/20 00:46 01/17/20 00:00 37.2 C 28 H 105/48 L 96 01/16/20 22:26 37.2 C 24 H 99/55 L 90 L 01/16/20 21:21 103 H 174/75 H 01/16/20 20:37 38.1 C 01/16/20 20:18 01/16/20 20:00 38.1 C 24 H 160/66 H 94 L Pulse Ox 01/17/20 06:41 94 L 01/17/20 04:00 01/17/20 02:02 01/17/20 02:00 01/17/20 00:46 94 L 01/17/20 00:00 01/16/20 22:26 01/16/20 21:21 01/16/20 20:37 01/16/20 20:18 92 L 01/16/20 20:00 - Problem List Review Problem List Initiated/Reviewed/Updated: Yes - Assessment Assessment:: Acute: Covid-19 Infection Viral Pneumonitis/Atypical Pneumonitis Acute hypoxic Respiratory Failure on 15 NR with 65L high flow, 90% FiO2 Elevated D-dimer Hyponatremia with Sodium of 134 Hypokalemia with K of 3.3 Increased AG Metabolic Acidosis Hypomagnesemia with Mg of 1.6 Elevated AST of 40 Elevated Alk Phos of 129 NSTEMI vs Covid-Induced Myocarditis Elevated CRP level Hypoalbuminemia with Albumin of 2.3 Chronic: Impaired Vision Hx/o PE/DVT HTN HLD CAD S/p Pacemaker GERD OA Hx/o CVA Left Sided Weakness Hypothyroidism Barrettes Esophagus 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
[2020-01-17] MEDS: Rivaroxaban 10 MG Tab PO SCH (08:29)
[2020-01-17] MEDS: Losartan 100 MG Tab PO SCH (08:29)
[2020-01-17] MEDS: Furosemide 40 MG/4 ML VIAL IVPUSH SCH (08:29)
[2020-01-17] MEDS: Dexamethasone 4 MG Tab PO SCH (08:30)
[2020-01-17] MEDS: Metoprolol Succinate 50 MG Tab.ER PO SCH (08:30)
[2020-01-17] MEDS: Cyanocobalamin (Vitamin B12) 1,000 MCG Tab PO SCH (08:30)
[2020-01-17] MEDS: Aspirin 81 MG Tab.EC PO SCH (08:30)
[2020-01-17] MEDS: Cholecalciferol (Vitamin D3) 25 MCG Tab PO SCH (08:30)
[2020-01-17] MEDS: Folic Acid 1 MG Tab PO SCH (08:31)
[2020-01-17] MEDS: Dorzolamide/Timolol 2%-0.5% Ophth Soln 10 ML Bottle EYEBOTH SCH ×2 (08:31→21:23)
[2020-01-17] MEDS ORDERED: FOLIC ACID 400 MCG PO SCH (09:00)
[2020-01-17] MEDS ORDERED: Potassium Chloride 20 MEQ Tab.ER PO ONE (09:14)
[2020-01-17] MEDS ORDERED: REMDESIVIR 100 MG in Sodium Chloride 0.9% 100 ML IV SCH (11:00)
[2020-01-17] MEDS ORDERED: Sodium Chloride 0.9% 250 ML IV SCH (13:45)
[2020-01-17] MEDS ORDERED: Sodium Chloride 0.9% 250 ML ONE (13:48)
[2020-01-17] MEDS: cefTRIAXone 2 GM in Sodium Chloride 0.9% 100 ML IV SCH (16:37)
[2020-01-17] MEDS: Azithromycin 500 MG in Sodium Chloride 0.9% 250 ML IV SCH (16:55)
[2020-01-17] MEDS ORDERED: Furosemide 20 MG/2 ML VIAL IVPUSH ONE (17:36)
[2020-01-17] MEDS ORDERED: Furosemide 20 MG/2 ML VIAL ONE (17:41)
[2020-01-17] MEDS: REMDESIVIR 100 MG in Sodium Chloride 0.9% 100 ML IV SCH (18:08)
[2020-01-17] MEDS ORDERED: Magnesium Sulfate/D5W 1 GM/100 ML BAG IV ONE (20:10)
[2020-01-17] MEDS ORDERED: Sodium Chloride 0.9% 100 ML ONE (20:46)
[2020-01-17] MEDS: Simvastatin 40 MG Tab PO SCH (20:47)
[2020-01-17] MEDS ORDERED: Sodium Chloride 0.9% 1,000 ML IV SCH (20:48)
[2020-01-17] MEDS ORDERED: Sodium Chloride 0.9% 100 ML IV ONE (20:54)
[2020-01-17] MEDS: Latanoprost 0.005% Ophth Soln 2.5 ML Bottle EYEBOTH SCH (21:23)
[2020-01-17] MEDS: Furosemide 20 MG/2 ML VIAL IVPUSH SCH (22:22)
[2020-01-18] MEDS ORDERED: Sodium Chloride 0.9% 100 ML IV ONE (03:45)
[2020-01-18] MEDS: Levothyroxine 125 MCG Tab PO SCH (06:37)
--- NOTE | 2020-01-18 08:00 | PCM.PN ---
- General Info Date of Service: 01/18/20 Admission Dx/Problem (Free Text): COVID +, Dyspnea Subjective Update: She did not ret well overnight. Her chest x-ray shows worsening peripheral ground glass opacity. She is still requiring significant amount of oxygen. Short of breath, dyspneic and tachycardic. Offered to intubate but refused. She has refused proning position numerous times. She simply does not want to do it. Functional Status: Reports: Pain Controlled - Review of Systems General: Denies: Fever, Chills Pulmonary: Reports: Shortness of Breath, Other (dyspnea) Cardiovascular: Denies: Chest Pain Gastrointestinal: Denies: Abdominal Pain, Nausea, Vomiting Musculoskeletal: Denies: Joint Pain Skin: Denies: Rash Neurological: Denies: Confusion Psychiatric: Denies: Depression, Anxiety - Patient Data Vitals - Most Recent: Last Vital Signs Temp 37.2 C 01/18/20 04:00 Pulse 88 01/17/20 20:56 Resp 50 H 01/18/20 04:00 BP 120/47 L 01/18/20 04:00 Pulse Ox 90 L 01/18/20 06:23 Weight - Most Recent: 81.873 kg I&O - Last 24 Hours: Intake & Output 01/17/20 01/18/20 01/18/20 22:59 06:59 14:59 Intake Total 1724 750 Output Total 670 885 Balance 1054 -135 Lab Results Last 24 Hours: Laboratory Results - last 24 hr 01/16/20 01/18/20 01/18/20 Range/Units 08:25 04:23 04:23 WBC 7.38 (3.98-10.04) K/mm3 RBC 3.61 L (3.98-5.22) M/mm3 Hgb 11.3 (11.2-15.7) gm/dl Hct 33.5 L (34.1-44.9) % MCV 92.8 (79.4-94.8) fl MCH 31.3 (25.6-32.2) pg MCHC 33.7 (32.2-35.5) g/dl RDW Std Deviation 49.4 H (36.4-46.3) fL Plt Count 239 (182-369) K/mm3 MPV 10.4 (9.4-12.3) fl Neut % (Auto) 78.2 H (34.0-71.1) % Lymph % (Auto) 14.9 L (19.3-51.7) % [place] % (Auto) 6.5 (4.7-12.5) % Eos % (Auto) 0.1 L (0.7-5.8) Baso % (Auto) 0.3 (0.1-1.2) % Neut # (Auto) 5.77 (1.56-6.13) K/mm3 Lymph # (Auto) 1.10 L (1.18-3.74) K/mm3 [place] # (Auto) 0.48 H (0.24-0.36) K/mm3 Eos # (Auto) 0.01 L (0.04-0.36) K/mm3 Baso # (Auto) 0.02 (0.01-0.08) K/mm3 Manual Slide Review Not Reportable D-Dimer, Quantitative (0.19-0.50) mg/L Sodium 134 L (136-145) mEq/L Potassium 3.6 (3.5-5.1) mEq/L Chloride 100 (98-107) mEq/L Carbon Dioxide 22 (21-32) mEq/L Anion Gap 15.6 H (5-15) BUN 36 H (7-18) mg/dL Creatinine 1.4 H (0.55-1.02) mg/dL Est Cr Clr Drug Dosing 22.17 mL/min Estimated GFR (MDRD) 36 (>60) mL/min BUN/Creatinine Ratio 25.7 H (14-18) Glucose 98 (83-115) mg/dL Calcium 10.3 H (8.5-10.1) mg/dL Magnesium 1.9 (1.8-2.4) mg/dl Total Bilirubin 0.4 (0.2-1.0) mg/dL AST 49 H (15-37) U/L ALT 48 (14-59) U/L Alkaline Phosphatase 131 H (46-116) U/L C-Reactive Protein 42.9 H* (<1.0) mg/dL NT-Pro-B Natriuret Pep (0-450) pg/mL Total Protein 6.7 (6.4-8.2) g/dl Albumin 2.4 L (3.4-5.0) g/dl Globulin 4.3 gm/dL Albumin/Globulin Ratio 0.6 L (1-2) Blood Type A POSITIVE 01/18/20 01/18/20 Range/Units 04:23 04:23 WBC (3.98-10.04) K/mm3 RBC (3.98-5.22) M/mm3 Hgb (11.2-15.7) gm/dl Hct (34.1-44.9) % MCV (79.4-94.8) fl MCH (25.6-32.2) pg MCHC (32.2-35.5) g/dl RDW Std Deviation (36.4-46.3) fL Plt Count (182-369) K/mm3 MPV (9.4-12.3) fl Neut % (Auto) (34.0-71.1) % Lymph % (Auto) (19.3-51.7) % [place] % (Auto) (4.7-12.5) % Eos % (Auto) (0.7-5.8) Baso % (Auto) (0.1-1.2) % Neut # (Auto) (1.56-6.13) K/mm3 Lymph # (Auto) (1.18-3.74) K/mm3 [place] # (Auto) (0.24-0.36) K/mm3 Eos # (Auto) (0.04-0.36) K/mm3 Baso # (Auto) (0.01-0.08) K/mm3 Manual Slide Review D-Dimer, Quantitative 2.83 H (0.19-0.50) mg/L Sodium (136-145) mEq/L Potassium (3.5-5.1) mEq/L Chloride (98-107) mEq/L Carbon Dioxide (21-32) mEq/L Anion Gap (5-15) BUN (7-18) mg/dL Creatinine (0.55-1.02) mg/dL Est Cr Clr Drug Dosing mL/min Estimated GFR (MDRD) (>60) mL/min BUN/Creatinine Ratio (14-18) Glucose (83-115) mg/dL Calcium (8.5-10.1) mg/dL Magnesium (1.8-2.4) mg/dl Total Bilirubin (0.2-1.0) mg/dL AST (15-37) U/L ALT (14-59) U/L Alkaline Phosphatase (46-116) U/L C-Reactive Protein (<1.0) mg/dL NT-Pro-B Natriuret Pep 64477 H (0-450) pg/mL Total Protein (6.4-8.2) g/dl Albumin (3.4-5.0) g/dl Globulin gm/dL Albumin/Globulin Ratio (1-2) Blood Type Med Orders - Current: Current Medications Acetaminophen (Tylenol) 650 mg PO Q4H PRN PRN Reason: Fever Last Admin: 01/17/20 09:54 Dose: 650 mg Documented by: Aspirin (Halfprin) 81 mg PO DAILY [facility] Last Admin: 01/17/20 08:30 Dose: 81 mg Documented by: Cholecalciferol (Vitamin D3) 25 mcg PO DAILY [facility] Last Admin: 01/17/20 08:30 Dose: 25 mcg Documented by: Cyanocobalamin (Vitamin B12) 1,000 mcg PO DAILY [facility] Last Admin: 01/17/20 08:30 Dose: 1,000 mcg Documented by: Dexamethasone (Dexamethasone) 6 mg PO DAILY [facility] Stop: 01/26/20 09:01 Last Admin: 01/17/20 08:30 Dose: 6 mg Documented by: Dorzolamide/Timolol (Cosopt 2%-0.5% Ophth Soln) 0 ml EYEBOTH BID [facility] Last Admin: 01/17/20 21:23 Dose: Not Given Documented by: Folic Acid (Folic Acid) 0.5 mg PO DAILY [facility] Last Admin: 01/17/20 08:31 Dose: 0.5 mg Documented by: Furosemide (Lasix) 20 mg IVPUSH BID [facility] Last Admin: 01/17/20 22:22 Dose: 20 mg Documented by: Hydralazine HCl (Apresoline) 10 mg IVPUSH Q4H PRN PRN Reason: Hypertension Azithromycin 500 mg/ Sodium (Chloride) 250 mls @ 250 mls/hr IV Q24H [facility] Stop: 01/18/20 15:29 Last Admin: 01/17/20 16:55 Dose: 250 mls/hr Documented by: Remdesivir 100 mg/ Sodium (Chloride) 100 mls @ 100 mls/hr IV Q24H [facility] Stop: 01/20/20 16:59 Last Admin: 01/17/20 18:08 Dose: 100 mls/hr Documented by: Ceftriaxone Sodium 2 gm/ (Sodium Chloride) 100 mls @ 200 mls/hr IV Q24H [facility] Stop: 01/20/20 15:29 Last Admin: 01/17/20 16:37 Dose: 200 mls/hr Documented by: Latanoprost (Xalatan 0.005% Ophth Soln) 0 ml EYEBOTH BEDTIME [facility] Last Admin: 01/17/20 21:23 Dose: 1 drop Documented by: Levothyroxine Sodium (Levothyroxine) 125 mcg PO ACBREAKFAST [facility] Last Admin: 01/18/20 06:37 Dose: 125 mcg Documented by: Lorazepam (Ativan) 1 mg PO Q2H PRN PRN Reason: Anxiety Last Admin: 01/16/20 20:37 Dose: 1 mg Documented by: Losartan Potassium (Cozaar) 100 mg PO DAILY [facility] Last Admin: 01/17/20 08:29 Dose: 100 mg Documented by: Metoprolol Succinate (Toprol Xl) 50 mg PO DAILY [facility] Last Admin: 01/17/20 08:30 Dose: 50 mg Documented by: Metoprolol Tartrate (Lopressor) 5 mg IVPUSH Q4H PRN PRN Reason: Tachycardia Non-Formulary Medication (Brinzolamide/Brimonidine Tart [Simbrinza 1%-0.2% Eye Drops]) 1 drop EYEBOTH BID [facility] Rivaroxaban (Xarelto) 20 mg PO DAILY [facility] Last Admin: 01/17/20 08:29 Dose: 20 mg Documented by: Simvastatin (Zocor) 40 mg PO BEDTIME [facility] Last Admin: 01/17/20 20:47 Dose: 40 mg Documented by: Sodium Chloride (Saline Flush) 10 ml FLUSH ASDIRECTED PRN PRN Reason: Keep Vein Open Last Admin: 01/16/20 09:31 Dose: 10 ml Documented by: Zinc Sulfate (Zincate) 220 mg PO DAILY [facility] Discontinued Medications Dexamethasone (Decadron) 6 mg IVPUSH ONETIME ONE Stop: 01/16/20 09:38 Last Admin: 01/16/20 10:17 Dose: 6 mg Documented by: Furosemide (Lasix) 40 mg IVPUSH ONETIME ONE Stop: 01/16/20 10:27 Last Admin: 01/16/20 15:58 Dose: Not Given Documented by: Furosemide (Lasix) 40 mg IVPUSH ONETIME ONE Stop: 01/16/20 15:01 Last Admin: 01/16/20 15:56 Dose: 40 mg Documented by: Furosemide (Lasix) 40 mg IVPUSH BID [facility] Last Admin: 01/17/20 08:29 Dose: 40 mg Documented by: Furosemide (Lasix) 20 mg IVPUSH NOW ONE Stop: 01/17/20 17:37 Last Admin: 01/17/20 17:49 Dose: 20 mg Documented by: Furosemide (Lasix) Confirm Administered Dose 20 mg .ROUTE .STK-MED ONE Stop: 01/17/20 17:42 Last Admin: 01/17/20 17:49 Dose: Not Given Documented by: Remdesivir 200 mg/ Sodium (Chloride) 250 mls @ 250 mls/hr IV ONETIME ONE Stop: 01/16/20 10:13 Last Admin: 01/16/20 12:12 Dose: 250 mls/hr Documented by: Remdesivir 100 mg/ Sodium (Chloride) 100 mls @ 100 mls/hr IV Q24H [facility] Stop: 01/20/20 11:59 Azithromycin 500 mg/ Sodium (Chloride) 250 mls @ 250 mls/hr IV Q24H [facility] Stop: 01/18/20 11:29 Last Admin: 01/16/20 17:40 Dose: Not Given Documented by: Ceftriaxone Sodium 2 gm/ (Sodium Chloride) 100 mls @ 200 mls/hr IV Q24H [facility] Stop: 01/20/20 10:59 Last Admin: 01/16/20 17:40 Dose: Not Given Documented by: Remdesivir 200 mg/ Sodium (Chloride) 250 mls @ 250 mls/hr IV ONETIME ONE Stop: 01/16/20 11:59 Last Admin: 01/16/20 15:58 Dose: Not Given Documented by: Ceftriaxone Sodium 2 gm/ (Sodium Chloride) 100 mls @ 200 mls/hr IV Q24H [facility] Stop: 01/20/20 17:29 Ceftriaxone Sodium 2 gm/ (Sodium Chloride) 100 mls @ 200 mls/hr IV Q24H [facility] Stop: 01/20/20 14:29 Last Admin: 01/16/20 17:40 Dose: Not Given Documented by: Remdesivir 200 mg/ Sodium (Chloride) 250 mls @ 250 mls/hr IV ONETIME ONE Stop: 01/16/20 16:59 Last Admin: 01/16/20 17:40 Dose: Not Given Documented by: Sodium Chloride (Normal Saline) 250 mls @ 50 mls/hr IV ASDIRECTED [facility] Stop: 01/17/20 18:45 Sodium Chloride (Normal Saline) Confirm Administered Dose 250 mls @ as directed .ROUTE .[facility] ONE Stop: 01/17/20 13:49 Last Admin: 01/17/20 15:21 Dose: 50 mls/hr Documented by: Magnesium Sulfate/Dextrose (Magnesium Sulfate In D5w 100 Premix) 1 gm in 100 mls @ 100 mls/hr IV ONETIME ONE Stop: 01/17/20 21:09 Last Admin: 01/17/20 22:22 Dose: 100 mls/hr Documented by: Sodium Chloride (Normal Saline) Confirm Administered Dose 100 mls @ as directed .ROUTE .[facility] ONE Stop: 01/17/20 20:47 Last Admin: 01/18/20 03:38 Dose: Not Given Documented by: Sodium Chloride (Normal Saline) 100 mls @ 100 mls/hr IV ONETIME ONE Stop: 01/17/20 21:53 Metoprolol Tartrate (Lopressor) 25 mg PO ONETIME ONE Stop: 01/16/20 21:07 Last Admin: 01/16/20 21:21 Dose: 25 mg Documented by: Non-Formulary Medication (Brinzolamide/Brimonidine Tart [Simbrinza 1%-0.2% Eye Drops]) 1 drop EYEBOTH BID [facility] Non-Formulary Medication (Folic Acid) 400 mcg PO DAILY [facility] Potassium Chloride (Klor-Con M20) 60 meq PO ONETIME ONE Stop: 01/17/20 09:15 Last Admin: 01/17/20 09:54 Dose: 60 meq Documented by: Rivaroxaban (Xarelto) 20 mg PO WITHBREAKFAST [facility] - Exam Quality Assessment: Supplemental Oxygen General: Alert, Cooperative, Moderate Distress HEENT: Pupils Equal, Pupils Reactive, Mucous Membr. Moist/[place] Neck: Supple Lungs: Decreased Breath Sounds. No: Normal Respiratory Effort Cardiovascular: Regular Rate, Regular Rhythm GI/Abdominal Exam: Normal Bowel Sounds, Soft, Non-Tender, No Organomegaly (Female) Exam: Deferred Back Exam: Normal Inspection, Decreased Range of Motion Extremities: Normal Inspection, Normal Range of Motion, Non-Tender, No Pedal Edema Peripheral Pulses: 2+: Dorsalis Pedis (L), Dorsalis Pedis (R) Skin: Warm, Dry, Intact Neurological: No New Focal Deficit Psy/Mental Status: Alert, Normal Affect, Normal Mood Sepsis Event Note - Evaluation Sepsis Screening Result: No Definite Risk - Focused Exam Vital Signs: Vital Signs Temp Temp Pulse Resp BP Pulse Ox Pulse Ox 01/18/20 06:23 90 L 01/18/20 04:00 37.2 C 50 H 120/47 L 90 L 01/18/20 00:00 36.7 C 34 H 130/52 L 95 01/17/20 20:56 37.0 C 88 30 H 125/54 L 01/17/20 20:04 88 L - Problem List Review Problem List Initiated/Reviewed/Updated: Yes - My Orders Last 24 Hours: My Active Orders 01/17/20 09:37 ABG [RT Arterial Blood Gases, ABG] [RC] Click to Edit 01/17/20 21:00 Furosemide [Lasix] 20 mg IVPUSH BID 01/18/20 06:00 Chest 1V Frontal [CR] Routine 01/18/20 09:00 Zinc Sulfate [Zincate] 220 mg PO DAILY - Assessment Assessment:: Acute: Covid-19 Infection Viral Pneumonitis/Atypical Pneumonitis Acute hypoxic Respiratory Failure on 15 NR with 65L high flow, 90% FiO2 plus CPAP Elevated D-dimer Hyponatremia with Sodium of 134 Hypokalemia with K of 3.3 Increased AG of 15.6 Metabolic Acidosis, resolved Hypomagnesemia with Mg of 1.6 Elevated AST of 49 Elevated Alk Phos of 131 NSTEMI vs Covid-Induced Myocarditis Elevated CRP level of 42.9 Hypoalbuminemia with Albumin of 2.3 [place] [address] Chronic: Impaired Vision Hx/o PE/DVT HTN HLD CAD S/p Pacemaker GERD OA Hx/o CVA Left Sided Weakness Hypothyroidism Barrettes Esophagus 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 Plan: Continue current treatment We will switch to V60 for vent support Azithromycin 2/3; Rocephin 2/5, dexamethasone 6 mg po daily, Lasix 20 mg IV BID, Remdesivir 5 day course and xarelto 20 mg po daily Routine AM Labs with PRN ABG Replete K & Mg levels and monitor On ASA 81 mg, Metoprolol 50 mg po daily, and Simvastatin 40 mg po QHS IS and FV as directed with bedside pulmonary exercise Aggressive proning position-refused it multiple times despite numerous ways to make her comfortable to include pain management Offered intubation-refused it Zinc supplement DNR and DNI Prognosis at this point is poor Spoke to her daughter, Vicki, this afternoon to update her that Rhiannon is doing poorly. Informed her that Rhiannon has refused proning multiple times. Explained to Vicki that this method has been shown to improve oxygenation in severely ill Covid-19 but Rhiannon would not do it due to back pain. We offered pain/anxiety meds and numerous way to support her comfort i.e. pillows or cushion to support her back but not receptive to it. We will continue to encourage patient. 01/19/20 At 0554. Patient Cr went up and had low urine output. Initial dose of lasix was cut down to 20 mg. Unfortunately intake was poor due to difficulty breathing with high flow+CPAP being off. We will hold lasix and losartan for today. IV fluids 500 ml x1 bolus and 100 cc/hr for the remaining bag for a total of 1L. D-dimer is higher this morning but she is already on xarelto for DVT prophylaxis. Will repeat chest x-ray and consider making dexa twice a day with persistently elevated inflammatory markers. At this point, prognosis is very poor.
[2020-01-18] MEDS: Folic Acid 1 MG Tab PO SCH (09:26)
[2020-01-18] MEDS: Metoprolol Succinate 50 MG Tab.ER PO SCH (09:27)
[2020-01-18] MEDS: Rivaroxaban 10 MG Tab PO SCH (09:28)
[2020-01-18] MEDS: Cyanocobalamin (Vitamin B12) 1,000 MCG Tab PO SCH (09:28)
[2020-01-18] MEDS: Aspirin 81 MG Tab.EC PO SCH (09:28)
[2020-01-18] MEDS: Dexamethasone 4 MG Tab PO SCH (09:29)
[2020-01-18] MEDS: Losartan 100 MG Tab PO SCH (09:29)
[2020-01-18] MEDS: Furosemide 20 MG/2 ML VIAL IVPUSH SCH ×2 (09:30→20:12)
[2020-01-18] MEDS: Zinc Sulfate 220 MG Cap PO SCH (09:30)
[2020-01-18] MEDS: Cholecalciferol (Vitamin D3) 25 MCG Tab PO SCH (09:30)
[2020-01-18] MEDS: Dorzolamide/Timolol 2%-0.5% Ophth Soln 10 ML Bottle EYEBOTH SCH ×2 (09:47→20:14)
[2020-01-18] MEDS ORDERED: LORazepam 2 MG/ML SDV IVPUSH ONE (13:30)
[2020-01-18] MEDS: Azithromycin 500 MG in Sodium Chloride 0.9% 250 ML IV SCH (14:52)
[2020-01-18] MEDS: cefTRIAXone 2 GM in Sodium Chloride 0.9% 100 ML IV SCH (16:34)
[2020-01-18] MEDS: REMDESIVIR 100 MG in Sodium Chloride 0.9% 100 ML IV SCH (17:18)
[2020-01-18] MEDS ORDERED: oxyCODONE 5 MG Tab PO PRN (17:41)
[2020-01-18] MEDS ORDERED: HYDROmorphone 0.5 MG/0.5 ML Syringe IVPUSH PRN (17:42)
[2020-01-18] MEDS: Latanoprost 0.005% Ophth Soln 2.5 ML Bottle EYEBOTH SCH (20:13)
[2020-01-18] MEDS: Simvastatin 40 MG Tab PO SCH (20:13)
[2020-01-18] MEDS: Sodium Chloride 0.9% 10 ML Syringe FLUSH PRN (20:16)
[2020-01-18] MEDS ORDERED: QUEtiapine 25 MG Tab PO SCH (21:00)
[2020-01-19] MEDS ORDERED: Sodium Chloride 0.9% 1,000 ML IV ONE (05:05)
[2020-01-19] MEDS: Levothyroxine 125 MCG Tab PO SCH (05:35)
[2020-01-19] MEDS ORDERED: QUEtiapine 25 MG Tab PO PRN (05:50)
[2020-01-19] MEDS ORDERED: Furosemide 20 MG/2 ML VIAL IVPUSH SCH (09:00)
[2020-01-19] MEDS: Cyanocobalamin (Vitamin B12) 1,000 MCG Tab PO SCH (09:43)
[2020-01-19] MEDS: Rivaroxaban 10 MG Tab PO SCH (09:43)
[2020-01-19] MEDS: Acetaminophen 325 MG Tab PO PRN (09:43)
[2020-01-19] MEDS: Cholecalciferol (Vitamin D3) 25 MCG Tab PO SCH (09:44)
[2020-01-19] MEDS: Folic Acid 1 MG Tab PO SCH (09:44)
[2020-01-19] MEDS: Zinc Sulfate 220 MG Cap PO SCH (09:44)
[2020-01-19] MEDS: Aspirin 81 MG Tab.EC PO SCH (09:45)
[2020-01-19] MEDS: Metoprolol Succinate 50 MG Tab.ER PO SCH (09:47)
[2020-01-19] MEDS: BRIMONIDINE TART EYEBOTH SCH ×2 (09:48→22:38)
[2020-01-19] MEDS: BRINZOLAMIDE EYEBOTH SCH ×2 (09:48→22:38)
[2020-01-19] MEDS: Dexamethasone 4 MG Tab PO SCH (09:48)
[2020-01-19] MEDS: Dorzolamide/Timolol 2%-0.5% Ophth Soln 10 ML Bottle EYEBOTH SCH ×2 (09:56→21:19)
--- NOTE | 2020-01-19 09:59 | CR ---
PROCEDURE INFORMATION: Exam: XR Chest, 1 View Exam date and time: 01/16/2020 8:14 AM Age: 84 years old Clinical indication: Dyspnea; Patient HX: Covid TECHNIQUE: Imaging protocol: XR of the chest Views: 1 view. COMPARISON: OT Chest 1V Frontal 01/13/2020 7:06 PM FINDINGS: Tubes, catheters and devices: A pacemaker device is present, and its leads are in appropriate position. Lungs: New ground-glass airspace disease at the lower lung singh bilaterally since the prior examination. The lung volumes are decreased with vascular crowding secondary to elevation of the diaphragms which is likely on the basis of poor inspiratory effort. There is mild perihilar interstitial prominence consistent with volume overload or early congestive heart failure. Pleural space: Thickening of the minor fissure. Heart/Mediastinum: The heart is enlarged. Bones/joints: Status post right total shoulder arthroplasty. IMPRESSION: 1. New ground-glass airspace disease at the lower lung singh bilaterally since the prior examination. 2. There is mild perihilar interstitial prominence consistent with volume overload or early congestive heart failure. Thank you for allowing us to participate in the care of your patient. Dictated and Authenticated by: Jason Shoemaker MD 01/16/2020 10:35 AM Central Time ([place] & [place]) [facility]
--- NOTE | 2020-01-19 10:41 | PCM.PN ---
- General Info Date of Service: 01/19/20 Admission Dx/Problem (Free Text): COVID +, Dyspnea Subjective Update: Rhiannon continues to be short of breath and tired. Patient had an episode of hypotension and low urine output overnight. Patient was given 500 cc bolus and started on 100 mL/h of normal saline. Patient had another episode of hypotension this afternoon and required another 500 mL bolus. Kidney function has worsened. Functional Status: Reports: Pain Controlled - Review of Systems General: Reports: Fatigue HEENT: Reports: No Symptoms Pulmonary: Reports: Shortness of Breath, Cough Cardiovascular: Reports: No Symptoms Gastrointestinal: Reports: No Symptoms - Patient Data Vitals - Most Recent: Last Vital Signs Temp 98.6 F 01/19/20 08:00 Pulse 74 01/19/20 09:47 Resp 12 01/19/20 08:00 BP 99/89 01/19/20 09:47 Pulse Ox 88 L 01/19/20 08:00 Weight - Most Recent: 182 lb I&O - Last 24 Hours: Intake & Output 01/18/20 01/19/20 01/19/20 22:59 06:59 14:59 Intake Total 420 300 Output Total 105 75 30 Balance 315 225 -30 Lab Results Last 24 Hours: Laboratory Results - last 24 hr 01/19/20 01/19/20 01/19/20 Range/Units 04:05 04:05 04:05 WBC 8.07 (3.98-10.04) K/mm3 RBC 3.43 L (3.98-5.22) M/mm3 Hgb 10.6 L (11.2-15.7) gm/dl Hct 32.0 L (34.1-44.9) % MCV 93.3 (79.4-94.8) fl MCH 30.9 (25.6-32.2) pg MCHC 33.1 (32.2-35.5) g/dl RDW Std Deviation 50.1 H (36.4-46.3) fL Plt Count 229 (182-369) K/mm3 MPV 10.8 (9.4-12.3) fl Neut % (Auto) 80.8 H (34.0-71.1) % Lymph % (Auto) 13.0 L (19.3-51.7) % Motley % (Auto) 5.8 (4.7-12.5) % Eos % (Auto) 0.2 L (0.7-5.8) Baso % (Auto) 0.2 (0.1-1.2) % Neut # (Auto) 6.51 H (1.56-6.13) K/mm3 Lymph # (Auto) 1.05 L (1.18-3.74) K/mm3 Motley # (Auto) 0.47 H (0.24-0.36) K/mm3 Eos # (Auto) 0.02 L (0.04-0.36) K/mm3 Baso # (Auto) 0.02 (0.01-0.08) K/mm3 D-Dimer, Quantitative 5.21 H (0.19-0.50) mg/L Sodium 134 L (136-145) mEq/L Potassium 4.1 (3.5-5.1) mEq/L Chloride 100 (98-107) mEq/L Carbon Dioxide 22 (21-32) mEq/L Anion Gap 16.1 H (5-15) BUN 55 H (7-18) mg/dL Creatinine 2.1 H (0.55-1.02) mg/dL Est Cr Clr Drug Dosing 14.78 mL/min Estimated GFR (MDRD) 22 (>60) mL/min BUN/Creatinine Ratio 26.2 H (14-18) Glucose 126 H (83-115) mg/dL Calcium 10.1 (8.5-10.1) mg/dL Magnesium 2.1 (1.8-2.4) mg/dl Total Bilirubin 0.3 (0.2-1.0) mg/dL AST 42 H (15-37) U/L ALT 43 (14-59) U/L Alkaline Phosphatase 139 H (46-116) U/L C-Reactive Protein 42.5 H* (<1.0) mg/dL Total Protein 6.1 L (6.4-8.2) g/dl Albumin 1.9 L (3.4-5.0) g/dl Globulin 4.2 gm/dL Albumin/Globulin Ratio 0.5 L (1-2) Med Orders - Current: Current Medications Acetaminophen (Tylenol) 650 mg PO Q4H PRN PRN Reason: Fever Last Admin: 01/19/20 09:43 Dose: 650 mg Documented by: Aspirin (Halfprin) 81 mg PO DAILY [facility] Last Admin: 01/19/20 09:45 Dose: 81 mg Documented by: Cholecalciferol (Vitamin D3) 25 mcg PO DAILY [facility] Last Admin: 01/19/20 09:44 Dose: 25 mcg Documented by: Cyanocobalamin (Vitamin B12) 1,000 mcg PO DAILY [facility] Last Admin: 01/19/20 09:43 Dose: 1,000 mcg Documented by: Dexamethasone (Dexamethasone) 6 mg PO DAILY [facility] Stop: 01/25/20 09:01 Last Admin: 01/19/20 09:48 Dose: 6 mg Documented by: Dorzolamide/Timolol (Cosopt 2%-0.5% Ophth Soln) 0 ml EYEBOTH BID [facility] Last Admin: 01/19/20 09:56 Dose: Not Given Documented by: Folic Acid (Folic Acid) 0.5 mg PO DAILY [facility] Last Admin: 01/19/20 09:44 Dose: 0.5 mg Documented by: Furosemide (Lasix) 20 mg IVPUSH DAILY [facility] Hydralazine HCl (Apresoline) 10 mg IVPUSH Q4H PRN PRN Reason: Hypertension Hydromorphone HCl (Dilaudid) 0.25 mg IVPUSH Q6H PRN PRN Reason: Pain Remdesivir 100 mg/ Sodium (Chloride) 100 mls @ 100 mls/hr IV Q24H [facility] Stop: 01/20/20 16:59 Last Admin: 01/18/20 17:18 Dose: 100 mls/hr Documented by: Ceftriaxone Sodium 2 gm/ (Sodium Chloride) 100 mls @ 200 mls/hr IV Q24H [facility] Stop: 01/20/20 15:29 Last Admin: 01/18/20 16:34 Dose: 200 mls/hr Documented by: Sodium Chloride (Normal Saline) 1,000 mls @ 100 mls/hr IV ASDIRECTED [facility] Latanoprost (Xalatan 0.005% Ophth Soln) 0 ml EYEBOTH BEDTIME [facility] Last Admin: 01/18/20 20:13 Dose: 1 drop Documented by: Levothyroxine Sodium (Levothyroxine) 125 mcg PO ACBREAKFAST [facility] Last Admin: 01/19/20 05:35 Dose: 125 mcg Documented by: Lorazepam (Ativan) 1 mg PO Q2H PRN PRN Reason: Anxiety Last Admin: 01/16/20 20:37 Dose: 1 mg Documented by: Losartan Potassium (Cozaar) 100 mg PO DAILY [facility] Metoprolol Succinate (Toprol Xl) 50 mg PO DAILY [facility] Last Admin: 01/19/20 09:47 Dose: 50 mg Documented by: Metoprolol Tartrate (Lopressor) 5 mg IVPUSH Q4H PRN PRN Reason: Tachycardia Oxycodone HCl (Oxycodone) 5 mg PO Q4H PRN PRN Reason: Pain Last Admin: 01/18/20 17:59 Dose: 5 mg Documented by: Brinzolamide/Brimonidine Tart [ Simbrinza 1%-0.2% Eye Drop 0 each EYEBOTH BID [facility] Last Admin: 01/19/20 09:48 Dose: 1 each Documented by: Quetiapine Fumarate (Seroquel) 12.5 mg PO BID PRN PRN Reason: Restlessness Rivaroxaban (Xarelto) 20 mg PO DAILY [facility] Last Admin: 01/19/20 09:43 Dose: 20 mg Documented by: Simvastatin (Zocor) 40 mg PO BEDTIME [facility] Last Admin: 01/18/20 20:13 Dose: 40 mg Documented by: Sodium Chloride (Saline Flush) 10 ml FLUSH ASDIRECTED PRN PRN Reason: Keep Vein Open Last Admin: 01/18/20 20:16 Dose: 10 ml Documented by: Zinc Sulfate (Zincate) 220 mg PO DAILY [facility] Last Admin: 01/19/20 09:44 Dose: 220 mg Documented by: Discontinued Medications Dexamethasone (Decadron) 6 mg IVPUSH ONETIME ONE Stop: 01/16/20 09:38 Last Admin: 01/16/20 10:17 Dose: 6 mg Documented by: Furosemide (Lasix) 40 mg IVPUSH ONETIME ONE Stop: 01/16/20 10:27 Last Admin: 01/16/20 15:58 Dose: Not Given Documented by: Furosemide (Lasix) 40 mg IVPUSH ONETIME ONE Stop: 01/16/20 15:01 Last Admin: 01/16/20 15:56 Dose: 40 mg Documented by: Furosemide (Lasix) 40 mg IVPUSH BID [facility] Last Admin: 01/17/20 08:29 Dose: 40 mg Documented by: Furosemide (Lasix) 20 mg IVPUSH BID [facility] Last Admin: 01/18/20 20:12 Dose: 20 mg Documented by: Furosemide (Lasix) 20 mg IVPUSH NOW ONE Stop: 01/17/20 17:37 Last Admin: 01/17/20 17:49 Dose: 20 mg Documented by: Furosemide (Lasix) Confirm Administered Dose 20 mg .ROUTE .STK-MED ONE Stop: 01/17/20 17:42 Last Admin: 01/17/20 17:49 Dose: Not Given Documented by: Furosemide (Lasix) 20 mg IVPUSH DAILY [facility] Remdesivir 200 mg/ Sodium (Chloride) 250 mls @ 250 mls/hr IV ONETIME ONE Stop: 01/16/20 10:13 Last Admin: 01/16/20 12:12 Dose: 250 mls/hr Documented by: Remdesivir 100 mg/ Sodium (Chloride) 100 mls @ 100 mls/hr IV Q24H [facility] Stop: 01/20/20 11:59 Azithromycin 500 mg/ Sodium (Chloride) 250 mls @ 250 mls/hr IV Q24H [facility] Stop: 01/18/20 11:29 Last Admin: 01/16/20 17:40 Dose: Not Given Documented by: Ceftriaxone Sodium 2 gm/ (Sodium Chloride) 100 mls @ 200 mls/hr IV Q24H [facility] Stop: 01/20/20 10:59 Last Admin: 01/16/20 17:40 Dose: Not Given Documented by: Remdesivir 200 mg/ Sodium (Chloride) 250 mls @ 250 mls/hr IV ONETIME ONE Stop: 01/16/20 11:59 Last Admin: 01/16/20 15:58 Dose: Not Given Documented by: Ceftriaxone Sodium 2 gm/ (Sodium Chloride) 100 mls @ 200 mls/hr IV Q24H [facility] Stop: 01/20/20 17:29 Azithromycin 500 mg/ Sodium (Chloride) 250 mls @ 250 mls/hr IV Q24H [facility] Stop: 01/18/20 15:29 Last Admin: 01/18/20 14:52 Dose: 250 mls/hr Documented by: Ceftriaxone Sodium 2 gm/ (Sodium Chloride) 100 mls @ 200 mls/hr IV Q24H [facility] Stop: 01/20/20 14:29 Last Admin: 01/16/20 17:40 Dose: Not Given Documented by: Remdesivir 200 mg/ Sodium (Chloride) 250 mls @ 250 mls/hr IV ONETIME ONE Stop: 01/16/20 16:59 Last Admin: 01/16/20 17:40 Dose: Not Given Documented by: Sodium Chloride (Normal Saline) 250 mls @ 50 mls/hr IV ASDIRECTED [facility] Stop: 01/17/20 18:45 Sodium Chloride (Normal Saline) Confirm Administered Dose 250 mls @ as directed .ROUTE .[facility]-MED ONE Stop: 01/17/20 13:49 Last Admin: 01/17/20 15:21 Dose: 50 mls/hr Documented by: Magnesium Sulfate/Dextrose (Magnesium Sulfate In D5w 100 Premix) 1 gm in 100 mls @ 100 mls/hr IV ONETIME ONE Stop: 01/17/20 21:09 Last Admin: 01/17/20 22:22 Dose: 100 mls/hr Documented by: Sodium Chloride (Normal Saline) Confirm Administered Dose 100 mls @ as directed .ROUTE .[facility] ONE Stop: 01/17/20 20:47 Last Admin: 01/18/20 03:38 Dose: Not Given Documented by: Sodium Chloride (Normal Saline) 100 mls @ 100 mls/hr IV ONETIME ONE Stop: 01/17/20 21:53 Last Admin: 01/18/20 17:19 Dose: Not Given Documented by: Sodium Chloride (Normal Saline) 1,000 mls @ 999 mls/hr IV ONETIME ONE Stop: 01/19/20 06:05 Last Infusion: 01/19/20 06:00 Dose: 100 mls/hr Documented by: Lorazepam (Ativan) 0.25 mg IVPUSH ONETIME ONE Stop: 01/18/20 13:31 Last Admin: 01/18/20 14:52 Dose: 0.25 mg Documented by: Losartan Potassium (Cozaar) 100 mg PO DAILY [facility] Last Admin: 01/18/20 09:29 Dose: 100 mg Documented by: Metoprolol Tartrate (Lopressor) 25 mg PO ONETIME ONE Stop: 01/16/20 21:07 Last Admin: 01/16/20 21:21 Dose: 25 mg Documented by: Non-Formulary Medication (Brinzolamide/Brimonidine Tart [Simbrinza 1%-0.2% Eye Drops]) 1 drop EYEBOTH BID [facility] Non-Formulary Medication (Folic Acid) 400 mcg PO DAILY [facility] Potassium Chloride (Klor-Con M20) 60 meq PO ONETIME ONE Stop: 01/17/20 09:15 Last Admin: 01/17/20 09:54 Dose: 60 meq Documented by: Quetiapine Fumarate (Seroquel) 12.5 mg PO BID [facility] Last Admin: 01/18/20 20:13 Dose: 12.5 mg Documented by: Rivaroxaban (Xarelto) 20 mg PO WITHBREAKFAST [facility] - Exam Quality Assessment: Supplemental Oxygen General: Severe Distress Lungs: Rales ( throughout both lung singh). No: Normal Respiratory Effort (Increased respiratory rate and effort) Cardiovascular: Regular Rate, Regular Rhythm GI/Abdominal Exam: Normal Bowel Sounds, Soft, Non-Tender, No Distention Extremities: Normal Inspection, Normal Capillary Refill Skin: Warm, Dry, Intact Sepsis Event Note - Evaluation Sepsis Screening Result: No Definite Risk - Focused Exam Vital Signs: Vital Signs Temp Pulse Resp BP BP Pulse Ox 01/19/20 09:47 74 99/89 01/19/20 08:00 98.6 F 12 110/38 L 88 L 01/19/20 06:08 91/30 L 88 L 01/19/20 06:07 84 L 01/19/20 06:00 86 L 01/19/20 05:00 89 L 01/19/20 04:06 87 L 01/19/20 04:00 97.2 F 28 H 90/43 L 88 L 01/19/20 03:00 83 L 01/19/20 02:00 87 L 01/19/20 01:00 87 L 01/19/20 00:00 97.7 F 32 H 104/51 L 84 L 01/18/20 23:00 87 L - Problem List & Annotations (1) Acute hypoxemic respiratory failure SNOMED Code(s): 645557138 Code(s): J96.01 - ACUTE RESPIRATORY FAILURE WITH HYPOXIA Status: Acute Priority: High Current Visit: Yes (2) Acute kidney injury superimposed on chronic kidney disease SNOMED Code(s): 13088460 Code(s): N17.9 - ACUTE KIDNEY FAILURE, UNSPECIFIED; N18.9 - CHRONIC KIDNEY DISEASE, UNSPECIFIED Status: Acute Priority: High Current Visit: Yes (3) CHF (congestive heart failure) SNOMED Code(s): 98635541 Code(s): I50.9 - HEART FAILURE, UNSPECIFIED Status: Acute Priority: High Current Visit: Yes Qualifiers: Heart failure type: unspecified Heart failure chronicity: acute on chronic Qualified Code(s): I50.9 - Heart failure, unspecified (4) Pneumonia due to COVID-19 virus SNOMED Code(s): 950936959040382854 Code(s): U07.1 - COVID-19; J12.89 - OTHER VIRAL PNEUMONIA Status: Acute Priority: High Current Visit: Yes - Problem List Review Problem List Initiated/Reviewed/Updated: Yes - My Orders Last 24 Hours: My Active Orders 01/19/20 08:08 PROCALCITONIN [REF] Routine 01/19/20 09:00 Patient's Own Medication [Ptom] 0 each EYEBOTH BID 01/19/20 10:00 Sodium Chloride 0.9% [Normal Saline] 1,000 ml IV ASDIRECTED - Assessment Assessment:: Acute: Covid-19 Infection Viral Pneumonitis/Atypical Pneumonitis Acute hypoxic Respiratory Failure on 15 NR with 65L high flow, 90% FiO2 plus CPAP Elevated D-dimer Hyponatremia with Sodium of 134 Hypokalemia with K of 3.3 Increased AG of 15.6 Metabolic Acidosis, resolved Hypomagnesemia with Mg of 1.6 Elevated AST of 49 Elevated Alk Phos of 131 NSTEMI vs Covid-Induced Myocarditis Elevated CRP level of 42.9 Hypoalbuminemia with Albumin of 2.3 [place] [address] Chronic: Impaired Vision Hx/o PE/DVT HTN HLD CAD S/p Pacemaker GERD OA Hx/o CVA Left Sided Weakness Hypothyroidism Barrettes Esophagus 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 Patient is not taking orally well because she does not tolerate coming off of BiPAP. Routine AM Labs with PRN ABG Replete K & Mg levels as necessary On ASA 81 mg, Metoprolol 50 mg po daily, and Simvastatin 40 mg po QHS IS and FV as directed with bedside pulmonary exercise Continue aggressive proning position-refused it multiple times despite numerous ways to make her comfortable to include pain management Offered intubation-refused it Zinc supplement DNR and DNI Prognosis at this point is poor Spoke to her daughter, Vicki, this afternoon to update her on her mother's poor condition. She understands the severity of her illness. 01/19/20 at 1300: called about low blood pressure. Patient was given 500 mL normal saline bolus. Code Status: DNR/DNI PCP: Cintia Rosales NP DVT prophylaxis: Home xarelto Disposition: Length of stay greater than 96 hours secondary to treatment for COVID-19. Prognosis: Poor prognosis given multiple comorbidities and prior immunocompromised state
[2020-01-19] MEDS: Sodium Chloride 0.9% 1,000 ML IV SCH ×2 (11:08→16:06)
[2020-01-19] MEDS ORDERED: Sodium Chloride 0.9% 500 ML IV ONE (11:31)
--- NOTE | 2020-01-19 12:49 | CR ---
PROCEDURE INFORMATION: Exam: XR Chest, 1 View Exam date and time: 01/18/2020 7:52 AM Age: 84 years old Clinical indication: Condition or disease; Other: Covid-19 positive TECHNIQUE: Imaging protocol: XR of the chest Views: 1 view. COMPARISON: CR Chest 1V Frontal 01/16/2020 8:14 AM FINDINGS: Lungs: Multifocal peripheral airspace opacity is present with slight increase in ground-glass opacity in the periphery of the left midlung zone. Findings may represent mild progression in COVID-19 pneumonia. There is no pulmonary edema. Pleural space: Unremarkable. No pleural effusion. No pneumothorax. Heart/Mediastinum: Heart size is moderately prominent with left-sided pacemaker present. Bones/joints: Unremarkable. IMPRESSION: Slight increase in peripheral ground-glass opacity in the left lung when compared to the previous examination. Findings are compatible with mild progression in COVID-19 pneumonia. Thank you for allowing us to participate in the care of your patient. Dictated and Authenticated by: Julio Falcon MD 01/18/2020 10:12 AM Central Time ([place] & [place]) [facility]
--- NOTE | 2020-01-19 13:35 | CR ---
PROCEDURE INFORMATION: Exam: XR Chest, 1 View Exam date and time: 01/19/2020 8:24 AM Age: 84 years old Clinical indication: Other: Covid 19 TECHNIQUE: Imaging protocol: XR of the chest Views: 1 view. COMPARISON: CR Chest 1V Frontal 01/18/2020 7:52 AM FINDINGS: Tubes, catheters and devices: A left-sided dual lead pacemaker is present. Lungs: Multifocal patchy airspace opacity is present which appears to be slightly increased when compared to the previous examination. The findings compatible with mild progression of the patient's known COVID-19 pneumonia. Pleural space: Unremarkable. No pleural effusion. No pneumothorax. Heart/Mediastinum: Heart size is moderately enlarged. Bones/joints: Unremarkable. IMPRESSION: Mild progression in multifocal airspace opacity compatible with patient's known COVID-19 infection. Thank you for allowing us to participate in the care of your patient. Dictated and Authenticated by: Julio Falcon MD 01/19/2020 10:06 AM Central Time ([place] & [place]) [facility]
[2020-01-19] MEDS: cefTRIAXone 2 GM in Sodium Chloride 0.9% 100 ML IV SCH (15:12)
[2020-01-19] MEDS: REMDESIVIR 100 MG in Sodium Chloride 0.9% 100 ML IV SCH (15:36)
[2020-01-19] MEDS: Latanoprost 0.005% Ophth Soln 2.5 ML Bottle EYEBOTH SCH (21:18)
[2020-01-19] MEDS: Simvastatin 40 MG Tab PO SCH (21:20)
[2020-01-19] MEDS ORDERED: Levofloxacin/Dextrose 5%-Water 750 MG in Premix Bag 1 BAG IV ONE (21:26)
[2020-01-19] MEDS ORDERED: LORazepam 0.5 MG Tab PO PRN (21:29)
[2020-01-19] MEDS ORDERED: Cefepime 2 GM in Premix Bag 1 BAG IV SCH (21:30)
[2020-01-19] MEDS ORDERED: Cefepime 1 GM in Premix Bag 1 BAG IV SCH (23:00)
[2020-01-19] MEDS ORDERED: Vancomycin 1.75 GM in Sodium Chloride 0.9% 500 ML IV ONE (23:30)
[2020-01-20] MEDS: Sodium Chloride 0.9% 1,000 ML IV SCH (02:11)
[2020-01-20 05:39] VITALS: PULSE 81
[2020-01-20] MEDS ORDERED: Morphine 2 MG/ML SYRINGE IVPUSH PRN (08:13)
[2020-01-20] MEDS: Rivaroxaban 10 MG Tab PO SCH (08:29)
[2020-01-20] MEDS ORDERED: Acetaminophen 650 MG Supp RECTAL PRN (08:44)
--- NOTE | 2020-01-20 08:55 | PCM.PN ---
- General Info Date of Service: 01/20/20 Admission Dx/Problem (Free Text): COVID +, Dyspnea Subjective Update: Rhiannon continues to have difficulty with breathing. She is significantly more short of breath, appears uncomfortable, and having difficulty finishing sentences on BiPAP. Echocardiogram was performed which showed right ventricular hypokinesis consistent with pulmonary embolism. D-dimer increased significantly also consistent with pulmonary embolism. Patient is unable to eat secondary to BiPAP. She does complain of being thirsty. - Review of Systems General: Reports: Other (Unable to obtain secondary to respiratory distress) - Patient Data Vitals - Most Recent: Last Vital Signs Temp 97.4 F 01/20/20 04:00 Pulse 81 01/20/20 04:00 Resp 46 H 01/20/20 05:40 BP 123/69 01/20/20 04:00 Pulse Ox 85 L 01/20/20 05:40 Weight - Most Recent: 184 lb 11.2 oz I&O - Last 24 Hours: Intake & Output 01/19/20 01/20/20 01/20/20 22:59 06:59 14:59 Intake Total 2800 1761 Output Total 145 195 Balance 2655 1566 Lab Results Last 24 Hours: Laboratory Results - last 24 hr 01/19/20 01/19/20 01/19/20 Range/Units 11:50 22:10 22:40 WBC (3.98-10.04) K/mm3 RBC (3.98-5.22) M/mm3 Hgb (11.2-15.7) gm/dl Hct (34.1-44.9) % MCV (79.4-94.8) fl MCH (25.6-32.2) pg MCHC (32.2-35.5) g/dl RDW Std Deviation (36.4-46.3) fL Plt Count (182-369) K/mm3 MPV (9.4-12.3) fl Neut % (Auto) (34.0-71.1) % Lymph % (Auto) (19.3-51.7) % Parker % (Auto) (4.7-12.5) % Eos % (Auto) (0.7-5.8) Baso % (Auto) (0.1-1.2) % Neut # (Auto) (1.56-6.13) K/mm3 Lymph # (Auto) (1.18-3.74) K/mm3 Parker # (Auto) (0.24-0.36) K/mm3 Eos # (Auto) (0.04-0.36) K/mm3 Baso # (Auto) (0.01-0.08) K/mm3 Manual Slide Review APTT (21.7-31.4) SECONDS D-Dimer, Quantitative (0.19-0.50) mg/L Puncture Site Lt brachial ABG pH 7.34 L (7.35-7.45) ABG pCO2 31.1 L (35.0-45.0) mmHg ABG pO2 53.0 L (80.0-100.0) mmHg ABG HCO3 16.3 L (22.0-26.0) meq/L ABG O2 Saturation 80.6 L (96.0-97.0) % ABG Base Excess -8.0 L (-2-2.0) A-a Gradient 621 mmHg O2 Delivery Device Bipap FiO2 100.00 (21.00-100.00) % Blood Gas Comments Bipap 18/10 Sodium 137 (136-145) mEq/L Potassium 4.1 (3.5-5.1) mEq/L Chloride 103 (98-107) mEq/L Carbon Dioxide 21 (21-32) mEq/L Anion Gap 17.1 H (5-15) BUN 68 H (7-18) mg/dL Creatinine 2.2 H (0.55-1.02) mg/dL Est Cr Clr Drug Dosing 14.11 mL/min Estimated GFR (MDRD) 21 (>60) mL/min BUN/Creatinine Ratio 30.9 H (14-18) Glucose 156 H (83-115) mg/dL Lactic Acid (0.4-2.0) mmol/L Calcium 10.1 (8.5-10.1) mg/dL Magnesium (1.8-2.4) mg/dl Total Bilirubin (0.2-1.0) mg/dL AST (15-37) U/L ALT (14-59) U/L Alkaline Phosphatase (46-116) U/L C-Reactive Protein (<1.0) mg/dL Total Protein (6.4-8.2) g/dl Albumin (3.4-5.0) g/dl Globulin gm/dL Albumin/Globulin Ratio (1-2) Procalcitonin 4.70 H (<0.10) ng/mL 01/19/20 01/20/20 01/20/20 Range/Units 23:14 06:03 06:03 WBC 13.28 H (3.98-10.04) K/mm3 RBC 3.68 L (3.98-5.22) M/mm3 Hgb 11.4 (11.2-15.7) gm/dl Hct 34.5 (34.1-44.9) % MCV 93.8 (79.4-94.8) fl MCH 31.0 (25.6-32.2) pg MCHC 33.0 (32.2-35.5) g/dl RDW Std Deviation 50.3 H (36.4-46.3) fL Plt Count 232 (182-369) K/mm3 MPV 11.2 (9.4-12.3) fl Neut % (Auto) 85.5 H (34.0-71.1) % Lymph % (Auto) 8.8 L (19.3-51.7) % Parker % (Auto) 5.0 (4.7-12.5) % Eos % (Auto) 0.1 L (0.7-5.8) Baso % (Auto) 0.1 (0.1-1.2) % Neut # (Auto) 11.36 H (1.56-6.13) K/mm3 Lymph # (Auto) 1.17 L (1.18-3.74) K/mm3 Parker # (Auto) 0.67 H (0.24-0.36) K/mm3 Eos # (Auto) 0.01 L (0.04-0.36) K/mm3 Baso # (Auto) 0.01 (0.01-0.08) K/mm3 Manual Slide Review Abnormal smear APTT (21.7-31.4) SECONDS D-Dimer, Quantitative (0.19-0.50) mg/L Puncture Site ABG pH (7.35-7.45) ABG pCO2 (35.0-45.0) mmHg ABG pO2 (80.0-100.0) mmHg ABG HCO3 (22.0-26.0) meq/L ABG O2 Saturation (96.0-97.0) % ABG Base Excess (-2-2.0) A-a Gradient mmHg O2 Delivery Device FiO2 (21.00-100.00) % Blood Gas Comments Sodium 138 (136-145) mEq/L Potassium 4.0 (3.5-5.1) mEq/L Chloride 106 (98-107) mEq/L Carbon Dioxide 17 L (21-32) mEq/L Anion Gap 19.0 H (5-15) BUN 68 H (7-18) mg/dL Creatinine 1.9 H (0.55-1.02) mg/dL Est Cr Clr Drug Dosing 16.33 mL/min Estimated GFR (MDRD) 25 (>60) mL/min BUN/Creatinine Ratio 35.8 H (14-18) Glucose 108 (83-115) mg/dL Lactic Acid 1.7 (0.4-2.0) mmol/L Calcium 10.0 (8.5-10.1) mg/dL Magnesium 2.0 (1.8-2.4) mg/dl Total Bilirubin 0.4 (0.2-1.0) mg/dL AST 44 H (15-37) U/L ALT 50 (14-59) U/L Alkaline Phosphatase 175 H (46-116) U/L C-Reactive Protein 35.0 H* (<1.0) mg/dL Total Protein 6.0 L (6.4-8.2) g/dl Albumin 2.0 L (3.4-5.0) g/dl Globulin 4.0 gm/dL Albumin/Globulin Ratio 0.5 L (1-2) Procalcitonin (<0.10) ng/mL 01/20/20 01/20/20 Range/Units 06:03 06:03 WBC (3.98-10.04) K/mm3 RBC (3.98-5.22) M/mm3 Hgb (11.2-15.7) gm/dl Hct (34.1-44.9) % MCV (79.4-94.8) fl MCH (25.6-32.2) pg MCHC (32.2-35.5) g/dl RDW Std Deviation (36.4-46.3) fL Plt Count (182-369) K/mm3 MPV (9.4-12.3) fl Neut % (Auto) (34.0-71.1) % Lymph % (Auto) (19.3-51.7) % Parker % (Auto) (4.7-12.5) % Eos % (Auto) (0.7-5.8) Baso % (Auto) (0.1-1.2) % Neut # (Auto) (1.56-6.13) K/mm3 Lymph # (Auto) (1.18-3.74) K/mm3 Parker # (Auto) (0.24-0.36) K/mm3 Eos # (Auto) (0.04-0.36) K/mm3 Baso # (Auto) (0.01-0.08) K/mm3 Manual Slide Review APTT 37.9 H (21.7-31.4) SECONDS D-Dimer, Quantitative > 35.20 H (0.19-0.50) mg/L Puncture Site ABG pH (7.35-7.45) ABG pCO2 (35.0-45.0) mmHg ABG pO2 (80.0-100.0) mmHg ABG HCO3 (22.0-26.0) meq/L ABG O2 Saturation (96.0-97.0) % ABG Base Excess (-2-2.0) A-a Gradient mmHg O2 Delivery Device FiO2 (21.00-100.00) % Blood Gas Comments Sodium (136-145) mEq/L Potassium (3.5-5.1) mEq/L Chloride (98-107) mEq/L Carbon Dioxide (21-32) mEq/L Anion Gap (5-15) BUN (7-18) mg/dL Creatinine (0.55-1.02) mg/dL Est Cr Clr Drug Dosing mL/min Estimated GFR (MDRD) (>60) mL/min BUN/Creatinine Ratio (14-18) Glucose (83-115) mg/dL Lactic Acid (0.4-2.0) mmol/L Calcium (8.5-10.1) mg/dL Magnesium (1.8-2.4) mg/dl Total Bilirubin (0.2-1.0) mg/dL AST (15-37) U/L ALT (14-59) U/L Alkaline Phosphatase (46-116) U/L C-Reactive Protein (<1.0) mg/dL Total Protein (6.4-8.2) g/dl Albumin (3.4-5.0) g/dl Globulin gm/dL Albumin/Globulin Ratio (1-2) Procalcitonin (<0.10) ng/mL Med Orders - Current: Current Medications Acetaminophen (Tylenol) 650 mg RECTAL Q4H PRN PRN Reason: Pain/Fever Dorzolamide/Timolol (Cosopt 2%-0.5% Ophth Soln) 0 ml EYEBOTH BID [facility] Last Admin: 01/19/20 21:19 Dose: 1 drop Documented by: Folic Acid (Folic Acid) 1 mg IV DAILY [facility] Heparin Sodium (Porcine) (Heparin Sodium) 5,000 units IVPUSH .BOLUS ONE; Protocol Stop: 01/20/20 09:31 Hydralazine HCl (Apresoline) 10 mg IVPUSH Q4H PRN PRN Reason: Hypertension Remdesivir 100 mg/ Sodium (Chloride) 100 mls @ 100 mls/hr IV Q24H [facility] Stop: 01/20/20 16:59 Last Admin: 01/19/20 15:36 Dose: 100 mls/hr Documented by: Sodium Chloride (Normal Saline) 1,000 mls @ 100 mls/hr IV ASDIRECTED [facility] Last Admin: 01/20/20 02:11 Dose: 100 mls/hr Documented by: Cefepime HCl 1 gm/ Premix 50 mls @ 100 mls/hr IV Q24H [facility] Last Admin: 01/19/20 23:37 Dose: 100 mls/hr Documented by: Heparin Sodium/Dextrose (Heparin 25,000 Units In D5w 500 Ml) 25,000 units in 500 mls @ 25.971 mls/hr IV TITRATE [facility]; Protocol Latanoprost (Xalatan 0.005% Ophth Soln) 0 ml EYEBOTH BEDTIME [facility] Last Admin: 01/19/20 21:18 Dose: 1 drop Documented by: Lorazepam (Ativan) 0.25 mg IVPUSH Q4H PRN PRN Reason: Anxiety Metoprolol Tartrate (Lopressor) 5 mg IVPUSH Q4H PRN PRN Reason: Tachycardia Morphine Sulfate (Morphine) 2 mg IVPUSH Q2H PRN PRN Reason: Pain Brinzolamide/Brimonidine Tart [ Simbrinza 1%-0.2% Eye Drop 0 each EYEBOTH BID [facility] Last Admin: 01/19/20 22:38 Dose: Not Given Documented by: Sodium Chloride (Saline Flush) 10 ml FLUSH ASDIRECTED PRN PRN Reason: Keep Vein Open Last Admin: 01/18/20 20:16 Dose: 10 ml Documented by: Vancomycin HCl (Pharmacy To Dose - Vancomycin) 1 dose .XX ASDIRECTED PRN PRN Reason: RX TO DOSE VANCO Discontinued Medications Acetaminophen (Tylenol) 650 mg PO Q4H PRN PRN Reason: Fever Last Admin: 01/19/20 09:43 Dose: 650 mg Documented by: Aspirin (Halfprin) 81 mg PO DAILY [facility] Last Admin: 01/19/20 09:45 Dose: 81 mg Documented by: Cholecalciferol (Vitamin D3) 25 mcg PO DAILY [facility] Last Admin: 01/19/20 09:44 Dose: 25 mcg Documented by: Cyanocobalamin (Vitamin B12) 1,000 mcg PO DAILY [facility] Last Admin: 01/19/20 09:43 Dose: 1,000 mcg Documented by: Dexamethasone (Decadron) 6 mg IVPUSH ONETIME ONE Stop: 01/16/20 09:38 Last Admin: 01/16/20 10:17 Dose: 6 mg Documented by: Dexamethasone (Dexamethasone) 6 mg PO DAILY [facility] Stop: 01/25/20 09:01 Last Admin: 01/19/20 09:48 Dose: 6 mg Documented by: Folic Acid (Folic Acid) 0.5 mg PO DAILY [facility] Last Admin: 01/19/20 09:44 Dose: 0.5 mg Documented by: Furosemide (Lasix) 40 mg IVPUSH ONETIME ONE Stop: 01/16/20 10:27 Last Admin: 01/16/20 15:58 Dose: Not Given Documented by: Furosemide (Lasix) 40 mg IVPUSH ONETIME ONE Stop: 01/16/20 15:01 Last Admin: 01/16/20 15:56 Dose: 40 mg Documented by: Furosemide (Lasix) 40 mg IVPUSH BID [facility] Last Admin: 01/17/20 08:29 Dose: 40 mg Documented by: Furosemide (Lasix) 20 mg IVPUSH BID [facility] Last Admin: 01/18/20 20:12 Dose: 20 mg Documented by: Furosemide (Lasix) 20 mg IVPUSH NOW ONE Stop: 01/17/20 17:37 Last Admin: 01/17/20 17:49 Dose: 20 mg Documented by: Furosemide (Lasix) Confirm Administered Dose 20 mg .ROUTE .STK-MED ONE Stop: 01/17/20 17:42 Last Admin: 01/17/20 17:49 Dose: Not Given Documented by: Furosemide (Lasix) 20 mg IVPUSH DAILY [facility] Furosemide (Lasix) 20 mg IVPUSH DAILY [facility] Hydromorphone HCl (Dilaudid) 0.25 mg IVPUSH Q6H PRN PRN Reason: Pain Last Admin: 01/19/20 11:03 Dose: 0.25 mg Documented by: Remdesivir 200 mg/ Sodium (Chloride) 250 mls @ 250 mls/hr IV ONETIME ONE Stop: 01/16/20 10:13 Last Admin: 01/16/20 12:12 Dose: 250 mls/hr Documented by: Remdesivir 100 mg/ Sodium (Chloride) 100 mls @ 100 mls/hr IV Q24H [facility] Stop: 01/20/20 11:59 Azithromycin 500 mg/ Sodium (Chloride) 250 mls @ 250 mls/hr IV Q24H [facility] Stop: 01/18/20 11:29 Last Admin: 01/16/20 17:40 Dose: Not Given Documented by: Ceftriaxone Sodium 2 gm/ (Sodium Chloride) 100 mls @ 200 mls/hr IV Q24H [facility] Stop: 01/20/20 10:59 Last Admin: 01/16/20 17:40 Dose: Not Given Documented by: Remdesivir 200 mg/ Sodium (Chloride) 250 mls @ 250 mls/hr IV ONETIME ONE Stop: 01/16/20 11:59 Last Admin: 01/16/20 15:58 Dose: Not Given Documented by: Ceftriaxone Sodium 2 gm/ (Sodium Chloride) 100 mls @ 200 mls/hr IV Q24H [facility] Stop: 01/20/20 17:29 Azithromycin 500 mg/ Sodium (Chloride) 250 mls @ 250 mls/hr IV Q24H [facility] Stop: 01/18/20 15:29 Last Admin: 01/18/20 14:52 Dose: 250 mls/hr Documented by: Ceftriaxone Sodium 2 gm/ (Sodium Chloride) 100 mls @ 200 mls/hr IV Q24H [facility] Stop: 01/20/20 14:29 Last Admin: 01/16/20 17:40 Dose: Not Given Documented by: Remdesivir 200 mg/ Sodium (Chloride) 250 mls @ 250 mls/hr IV ONETIME ONE Stop: 01/16/20 16:59 Last Admin: 01/16/20 17:40 Dose: Not Given Documented by: Ceftriaxone Sodium 2 gm/ (Sodium Chloride) 100 mls @ 200 mls/hr IV Q24H [facility] Stop: 01/20/20 15:29 Last Admin: 01/19/20 15:12 Dose: 200 mls/hr Documented by: Sodium Chloride (Normal Saline) 250 mls @ 50 mls/hr IV ASDIRECTED [facility] Stop: 01/17/20 18:45 Sodium Chloride (Normal Saline) Confirm Administered Dose 250 mls @ as directed .ROUTE .STK-MED ONE Stop: 01/17/20 13:49 Last Admin: 01/17/20 15:21 Dose: 50 mls/hr Documented by: Magnesium Sulfate/Dextrose (Magnesium Sulfate In D5w 100 Premix) 1 gm in 100 mls @ 100 mls/hr IV ONETIME ONE Stop: 01/17/20 21:09 Last Admin: 01/17/20 22:22 Dose: 100 mls/hr Documented by: Sodium Chloride (Normal Saline) Confirm Administered Dose 100 mls @ as directed .ROUTE .STK-MED ONE Stop: 01/17/20 20:47 Last Admin: 01/18/20 03:38 Dose: Not Given Documented by: Sodium Chloride (Normal Saline) 100 mls @ 100 mls/hr IV ONETIME ONE Stop: 01/17/20 21:53 Last Admin: 01/18/20 17:19 Dose: Not Given Documented by: Sodium Chloride (Normal Saline) 1,000 mls @ 999 mls/hr IV ONETIME ONE Stop: 01/19/20 06:05 Last Infusion: 01/19/20 06:00 Dose: 100 mls/hr Documented by: Sodium Chloride (Normal Saline) 500 mls @ 500 mls/hr IV .BOLUS ONE Stop: 01/19/20 12:30 Last Admin: 01/19/20 12:24 Dose: 500 mls/hr Documented by: Levofloxacin/Dextrose 750 mg/ (Premix) 150 mls @ 100 mls/hr IV ONETIME ONE Stop: 01/19/20 22:55 Last Admin: 01/19/20 22:06 Dose: 100 mls/hr Documented by: Vancomycin HCl 1.75 gm/ Sodium (Chloride) 500 mls @ 250 mls/hr IV ONETIME ONE Stop: 01/20/20 01:29 Last Admin: 01/20/20 00:37 Dose: 250 mls/hr Documented by: Levothyroxine Sodium (Levothyroxine) 125 mcg PO ACBREAKFAST [facility] Last Admin: 01/19/20 05:35 Dose: 125 mcg Documented by: Lorazepam (Ativan) 1 mg PO Q2H PRN PRN Reason: Anxiety Last Admin: 01/16/20 20:37 Dose: 1 mg Documented by: Lorazepam (Ativan) 0.25 mg IVPUSH ONETIME ONE Stop: 01/18/20 13:31 Last Admin: 01/18/20 14:52 Dose: 0.25 mg Documented by: Lorazepam (Ativan) 0.5 mg PO Q4H PRN PRN Reason: Anxiety Losartan Potassium (Cozaar) 100 mg PO DAILY [facility] Last Admin: 01/18/20 09:29 Dose: 100 mg Documented by: Losartan Potassium (Cozaar) 100 mg PO DAILY [facility] Metoprolol Succinate (Toprol Xl) 50 mg PO DAILY [facility] Last Admin: 01/19/20 09:47 Dose: 50 mg Documented by: Metoprolol Tartrate (Lopressor) 25 mg PO ONETIME ONE Stop: 01/16/20 21:07 Last Admin: 01/16/20 21:21 Dose: 25 mg Documented by: Non-Formulary Medication (Brinzolamide/Brimonidine Tart [Simbrinza 1%-0.2% Eye Drops]) 1 drop EYEBOTH BID [facility] Non-Formulary Medication (Folic Acid) 400 mcg PO DAILY [facility] Oxycodone HCl (Oxycodone) 5 mg PO Q4H PRN PRN Reason: Pain Last Admin: 01/18/20 17:59 Dose: 5 mg Documented by: Potassium Chloride (Klor-Con M20) 60 meq PO ONETIME ONE Stop: 01/17/20 09:15 Last Admin: 01/17/20 09:54 Dose: 60 meq Documented by: Quetiapine Fumarate (Seroquel) 12.5 mg PO BID [facility] Last Admin: 01/18/20 20:13 Dose: 12.5 mg Documented by: Quetiapine Fumarate (Seroquel) 12.5 mg PO BID PRN PRN Reason: Restlessness Last Admin: 01/19/20 18:56 Dose: 12.5 mg Documented by: Rivaroxaban (Xarelto) 20 mg PO WITHBREAKFAST [facility] Rivaroxaban (Xarelto) 20 mg PO DAILY [facility] Last Admin: 01/20/20 08:29 Dose: Not Given Documented by: Simvastatin (Zocor) 40 mg PO BEDTIME [facility] Last Admin: 01/19/20 21:20 Dose: 40 mg Documented by: Zinc Sulfate (Zincate) 220 mg PO DAILY [facility] Last Admin: 01/19/20 09:44 Dose: 220 mg Documented by: - Exam General: Severe Distress HEENT: Pupils Equal Neck: Supple Lungs: Rales (Scattered throughout), Rhonchi (Scattered throughout). No: Normal Respiratory Effort (Increased respiratory rate and effort. Tracheal tugging.) Cardiovascular: Regular Rate, Regular Rhythm GI/Abdominal Exam: Normal Bowel Sounds, No Distention, No Abnormal Bruit, Tender (Diffuse tenderness). No: Guarding, Rigid, Rebound Extremities: Normal Inspection, Slow Capillary Refill Skin: Cool Sepsis Event Note - Evaluation Sepsis Screening Result: No Definite Risk - Focused Exam Vital Signs: Vital Signs Temp Pulse Resp BP Pulse Ox Pulse Ox 01/20/20 05:40 46 H 85 L 01/20/20 04:00 97.4 F 81 24 H 123/69 79 L 01/20/20 00:00 97.3 F 79 22 H 102/72 81 L - Problem List & Annotations (1) Acute hypoxemic respiratory failure SNOMED Code(s): 186260393 Code(s): J96.01 - ACUTE RESPIRATORY FAILURE WITH HYPOXIA Status: Acute Priority: High Current Visit: Yes (2) Acute kidney injury superimposed on chronic kidney disease SNOMED Code(s): 80679070 Code(s): N17.9 - ACUTE KIDNEY FAILURE, UNSPECIFIED; N18.9 - CHRONIC KIDNEY DISEASE, UNSPECIFIED Status: Acute Priority: High Current Visit: Yes (3) CHF (congestive heart failure) SNOMED Code(s): 40022109 Code(s): I50.9 - HEART FAILURE, UNSPECIFIED Status: Acute Priority: High Current Visit: Yes Qualifiers: Heart failure type: unspecified Heart failure chronicity: acute on chronic Qualified Code(s): I50.9 - Heart failure, unspecified (4) Pneumonia due to COVID-19 virus SNOMED Code(s): 581974092441595703 Code(s): U07.1 - COVID-19; J12.89 - OTHER VIRAL PNEUMONIA Status: Acute Priority: High Current Visit: Yes - Problem List Review Problem List Initiated/Reviewed/Updated: Yes - My Orders Last 24 Hours: My Active Orders 01/19/20 09:00 Patient's Own Medication [Ptom] 0 each EYEBOTH BID 01/19/20 10:00 Sodium Chloride 0.9% [Normal Saline] 1,000 ml IV ASDIRECTED 01/19/20 Dinner Regular Diet [DIET] 01/19/20 21:30 Pharmacy to Dose - Vancomycin 1 dose .XX ASDIRECTED PRN 01/19/20 21:51 CXR [Chest 1V Frontal] [CR] Urgent 01/19/20 23:00 Cefepime [Maxipime in D5W 1 GM/50 ML] 1 gm Premix Bag 1 bag IV Q24H 01/20/20 08:13 Morphine 2 mg IVPUSH Q2H PRN 01/20/20 08:44 Acetaminophen [Tylenol] 650 mg RECTAL Q4H PRN 01/20/20 08:45 LORazepam [Ativan] 0.25 mg IVPUSH Q4H PRN 01/20/20 09:00 Folic Acid 1 mg IV DAILY 01/20/20 09:30 Heparin Sodium 5,000 units IVPUSH .BOLUS ONE Heparin Sodium/D5W [Heparin 25,000 Units in D5W 500 ML] 25,000 units in 500 ml IV TITRATE - Assessment Assessment:: Acute: Covid-19 Infection Viral Pneumonitis/Atypical Pneumonitis Acute hypoxic Respiratory Failure on BiPAP at 18/10 with 100% FiO2 Elevated D-dimer worsening with echocardiogram consistent with pulmonary embolism Hyponatremia resolved with Sodium of 138 Hypokalemia resolved with K of 4.0 Increased AG of 19.0 Procalcitonin 4.7 Metabolic Acidosis, resolved ABG: pH 7.34, PCO2 31, PO2 53, bicarb 16.3 on BiPAP 18/10 at 100% FiO2 Elevated AST Elevated Alk Phos o NSTEMI vs Covid-Induced Myocarditis Elevated CRP level of 35 Hypoalbuminemia with Albumin of 2.3 [place] [address] Chronic: Impaired Vision Hx/o PE/DVT HTN HLD CAD S/p Pacemaker GERD OA Hx/o CVA Left Sided Weakness Hypothyroidism Barrettes Esophagus 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 Patient is not taking orally well because she does not tolerate coming off of BiPAP. On ASA 81 mg, Metoprolol 50 mg po daily, and Simvastatin 40 mg po QHS IS and FV as directed with bedside pulmonary exercise Continue offering aggressive proning position-refused it multiple times despite numerous ways to make her comfortable to include pain management Offered intubation-refused it-again today Zinc supplement DNR and DNI Prognosis at this point is poor Spoke to her daughters, Vicki and Pau, this afternoon to update her on her mother's poor condition. They discussed her poor outcomes and her high mortality rate and believe that she would want to be kept comfortable. Vicki is the medical power of corporate attorney. Patient is currently unable to decide for herself what she wants done for her. Vicki stated that her mother would want to be kept comfortable. Her manager zone did her room tonight, she had a Zoom call with the rest of her family and patient was given morphine, Ativan, kept comfortable, and removed from BiPAP. Patient approximately 30 minutes later at 1905. Code Status: DNR/DNI comfort measures PCP: Cintia Rosales NP Disposition: Length of stay greater than 96 hours secondary to treatment for COVID-19.
[2020-01-20] MEDS ORDERED: Furosemide 20 MG/2 ML VIAL IVPUSH SCH (09:00)
[2020-01-20] MEDS ORDERED: Folic Acid 50 MG/10 ML MDV IV SCH (09:00)
--- NOTE | 2020-01-20 09:16 | CR ---
PROCEDURE INFORMATION: Exam: XR Chest, 1 View Exam date and time: 01/19/2020 10:12 PM Age: 84 years old Clinical indication: Other: Decreasing O2 sats; Patient HX: Covid + TECHNIQUE: Imaging protocol: XR of the chest Views: 1 view. COMPARISON: CR Chest 1V Frontal 01/19/2020 8:24 AM FINDINGS: Lungs: Decreased pulmonary expansion. Mild central vascular congestion. Right- sided alveolar opacities in the peripheral mid lung and basilar distribution are unchanged to mildly increased. There is moderately increased alveolar opacity in the peripheral left mid lung concerning for worsening pulmonary infection/pneumonia. Pleural space: No pleural effusion. No pneumothorax. Heart/Mediastinum: Moderate cardiomegaly.Cardiac pacemaker without gross hardware complication or change. No tracheal/mediastinal shift. Bones/joints: No acute osseous abnormalities are identified. IMPRESSION: 1. Increased alveolar density in the left peripheral mid lung concerning for worsening pulmonary infection/pneumonia, versus atypical edema pattern. Right- sided alveolar opacities are unchanged to mildly increased. 2. Cardiomegaly and cardiac pacemaker. Thank you for allowing us to participate in the care of your patient. Dictated and Authenticated by: Alejandro Bruce MD 01/19/2020 11:53 PM Central Time ([place] & [place]) [facility]
[2020-01-20] MEDS ORDERED: Heparin Sodium/D5W 25,000 UNITS/500 ML BAG IV SCH (09:30)
[2020-01-20] MEDS ORDERED: Heparin Sodium 5,000 Units/ML Vial IVPUSH ONE (09:30)
[2020-01-20] MEDS: LORazepam 2 MG/ML SDV IVPUSH PRN ×2 (10:07→15:58)
--- NOTE | 2020-01-20 15:42 | PCM.SN.2 ---
- Free Text/Narrative Note: Called for difficult IV start. Multiple failed attempts by nursing staff. 20 gauge IV attempted X 2 per MARY Otero without success in right upper arm. 20 gauge IV 1.88IN inserted per myself with one attempt in right antecubital vein good blood return noted. Site prepped with chloraprep and secured with a transparent dressing dressing. Flushed with 20 ml 0.9NS with ease. Kate Cardenas CRNA
[2020-01-20 15:54] VITALS: BP 126/63
[2020-01-20] MEDS: REMDESIVIR 100 MG in Sodium Chloride 0.9% 100 ML IV SCH (16:00)
[2020-01-20] MEDS ORDERED: LORazepam 2 MG/ML SDV IVPUSH PRN (16:30)
[2020-01-20] MEDS ORDERED: Morphine 4 MG/ML Syringe IVPUSH PRN (18:01)
[2020-01-20] MEDS: BRINZOLAMIDE EYEBOTH SCH (20:49)
[2020-01-20] MEDS: BRIMONIDINE TART EYEBOTH SCH (20:49)
[2020-01-20] MEDS: Dorzolamide/Timolol 2%-0.5% Ophth Soln 10 ML Bottle EYEBOTH SCH (20:49)
--- NOTE | 2020-01-20 21:07 | PCM.DCSUM1 ---
Discharge Summary - Hospital Course HPI Initial Comments: This is a 84-year-old female who presents to ED on 01/16/2020 via [facility] complaining of cough and dyspnea that has been ongoing for about 4 days. She was evaluated in the ED on 01/13/2020 and found to be Covid positive. Her chest x-ray at that time was mostly clear with a small infiltrate in the left base. She went home using oxygen at night, as her saturations at that time were 92 to 95% on 1 L. On return to the ED today she reports she feels much worse. She states she is up to 2 L via nasal cannula and is much more short of breath. She also reports cough, chills, possible low-grade fever, decreased appetite, mild diarrhea, and generalized weakness. Has been taking Tylenol for her symptoms. In the ED temp was 98.0. Pulse 91. Respirations 44. Blood pressure 132/90. Pulse ox was 87%. Twelve-lead EKG is obtained showing a paced rhythm at 78 bpm. Labs are obtained showing a WBC that is normal at 7.80. Hemoglobin 11.5. Plates are normal at 192. ABGs obtained showing a pH of 7.36. PCO2 of 27.2. PO2 of 71.0. HCO3 is 14.8. O2 saturation 92%. Base excess is -9.0. This is while on 4 L via nasal cannula. CRP is 40.8. D-dimer 0.63. Sodium is on the low end of normal at 136. Potassium is 3.7. Chloride 103. Carbon dioxide 17. Anion gap is quite high at 19.7. BUN is 33. Creatinine 1.5. GFR 33. Glucose 154. Calcium is 0.1. Ferritin is high at 572. Bilirubin 0.7. AST is 41, ALT 53, alkaline phosphatase 146. LDH is high at 296. Troponin is high at 0.085. Protein 7.2. [place] [address]. Is given 6 mg IV push of dexamethasone and started on 200 mg of remdesivir. Chest x-ray is obtained showing new groundglass airspace in bilateral lower lung field which is a change from prior x-ray. She also has bilateral pulmonary congestion. She has failed outpatient treatment and will therefore need admission to the hospital. She carries a history of glaucoma, macular degeneration, tinnitus, prior VTE, CAD, HLD, hypertension, pacemaker, GERD, Broosk's esophagus, chronic renal sufficiency, arthritis, CVA with resulting left-sided weakness, hypothyroidism, colon cancer with 5 inches of colon removed in 2006. She has never used tobacco. Her primary care provider is Kirstie Rosales NP. She is subsequently mid to the medical floor on telemetry for treatment of her COVID-19 pneumonia and CHF exacerbation. Assessment/Plan Comment:: Assessment on day of admission (01/16/20): -84 yo female COVID-19 positive on 01/14/20 who returns to ED with worsening weakness and hypoxia -CXR worsened since last visit. Now showing pulmonary vascular congestion and worsening infiltrates -Oxygen saturations of 87-88 on 2L via NC -No leukocytosis, CRP 40.8, D-Dimer 0.63, Gerritin 572, LDH 2.96 -GFR 33, Creatinine 1.5 (Prior creatinine from 2019 range is 1.1-1.5 with GFR of 33-47) -Troponin 0.85, ProBNP 52121 -Started on dexamethasone 6mg and Remdesivir 200mg in ED -Requiring 15L via NRB on floor -Up to commode and desaturated into 60's -12-lead EKG shows paced rhythm -Multiple comorbidities - immunosuppressed due to RA PLAN: Pneumonia due to COVID-19 virus Hypoxia Acute hypoxemic respiratory failure Immunosuppression due to chronic steroid use Generalized weakness -Continue Remdesivir - day 1 of 5 -Continue dexamethasone - day 1 of 10 or until discharge -Hold convalescent plasma for now due to concerns over fluid status with CHF exacerbation -Start BiPAP -Airborne/contact isolation -Start azithromycin - day 1 of 3 -Start Rocephin - day 1 of 5 -IS/Acapella -RT consult -Home Appliances Mechanic consult -Labs as ordered -Monitor blood glucose with daily lab draws CHF (congestive heart failure) Elevated troponin Cardiac pacemaker HLD (hyperlipidemia) HTN (hypertension) Hypertensive heart disease Carotid artery disease -Hold home lasix -Lasix 40mg IVP BID -Insert joseph catheter for I&O monitoring -Reconcile home medications -Monitor troponin- likely elevated due to stress reaction -Echo as soon as able to be obtained -Telemetry -Resume home ASA and metoprolol -Monitor electrolytes Renal insufficiency Acute kidney injury superimposed on chronic kidney disease -Caution with IV fluids due to CHF exacerbation -PO intake History of DVT of lower extremity History of CVA (cerebrovascular accident) -Resume home Xarelto GERD (gastroesophageal reflux disease) -Resume home omeprazole History of colon cancer -No current concerns Hypothyroidism -Check TSH -Resume home levothyroxine Code Status: Full code PCP: Cintia Rosales NP DVT prophylaxis: Home xarelto Disposition: Patient admitted to [facility] on telemetry for management of COVID-19 pneumonia with CHF exacerbation Prognosis: Poor prognosis given multiple comorbidities and prior immunocompromised state - Mortality Measure Prognosis:: Poor - Discharge Data Discharge Date: 01/20/20 Discharge Disposition: Home, Self-Care 01 Condition: - Referral to Home Health Primary Care Physician: Cintia Rosales NP - Discharge Diagnosis/Problem(s) (1) Acute hypoxemic respiratory failure SNOMED Code(s): 874439918 ICD Code: J96.01 - ACUTE RESPIRATORY FAILURE WITH HYPOXIA Status: Acute Priority: High Current Visit: Yes (2) Acute kidney injury superimposed on chronic kidney disease SNOMED Code(s): 57584279 ICD Code: N17.9 - ACUTE KIDNEY FAILURE, UNSPECIFIED; N18.9 - CHRONIC KIDNEY DISEASE, UNSPECIFIED Status: Acute Priority: High Current Visit: Yes (3) CHF (congestive heart failure) SNOMED Code(s): 34286518 ICD Code: I50.9 - HEART FAILURE, UNSPECIFIED Status: Acute Priority: High Current Visit: Yes Qualifiers: Heart failure type: unspecified Heart failure chronicity: acute on chronic Qualified Code(s): I50.9 - Heart failure, unspecified (4) Pneumonia due to COVID-19 virus SNOMED Code(s): 976773497940974046 ICD Code: U07.1 - COVID-19; J12.89 - OTHER VIRAL PNEUMONIA Status: Acute Priority: High Current Visit: Yes - Patient Summary/Data Consults: Consultations 01/16/20 16:10 Consult to Home Appliances Mechanic [CONS] Routine Consult to Respiratory Therapy [Respiratory Care Assess and Treatment] [CONS] Routine Hospital Course: Patient had worsening of oxygenation over her hospitalization. Because of her worsening oxygenation and respiratory status she was started on BiPAP. She was ultimately on 18/10 of pressure with 100% FiO2. She continued to have oxygen saturations in the 80s and ultimately into the 70s. She was unable to move her oxygen even for a couple minutes to drink water.She likely had a pulmonary embolism with D-dimer that was greater than 35. She was started on heparin, but with her worsening respiratory status even with treatment it was decided to make her comfort measures by her power of commercial attorney Vicki her daughter. Patient was kept comfortable, taken off of BiPAP, and at 1905. - Discharge Plan *PRESCRIPTION DRUG MONITORING PROGRAM REVIEWED*: Not Applicable *COPY OF PRESCRIPTION DRUG MONITORING REPORT IN PATIENT ROSANGELA: Not Applicable Home Medications: Home Meds Cholecalciferol (Vitamin D3) [Vitamin D3] 1,000 unit PO DAILY 02/03/16 [History] Cyanocobalamin (Vitamin B-12) [B-12] 1,000 mcg PO DAILY 02/03/16 [History] Latanoprost [Xalatan 0.005% Oph Soln] 1 drop EYEBOTH BEDTIME 02/03/16 [History] Methotrexate 17.5 mg PO FR 02/03/16 [History] Metoprolol Succinate 100 mg PO DAILY 02/03/16 [History] Omeprazole 20 mg PO DAILY 02/03/16 [History] Prednisone [IJD: Prednisone] 10 mg PO SADLER 02/03/16 [History] Simvastatin [Zocor] 40 mg PO BEDTIME 02/03/16 [History] sulfaSALAzine 1,000 mg PO BID 02/03/16 [History] Aspirin 81 mg PO DAILY 04/20/17 [History] Lutein/Minerals/Vit A,C & E [Ocuvite] 1 tab PO DAILY 04/20/17 [History] Multivitamin [Daily Multiple Vitamin] 1 tab PO DAILY 04/20/17 [History] Losartan Potassium [Cozaar] 100 mg PO DAILY 01/06/19 [History] Brinzolamide/Brimonidine Tart [Simbrinza 1%-0.2% Eye Drops] 1 drop EYEBOTH BID 01/13/20 [History] Folic Acid 400 mcg PO DAILY 01/13/20 [History] Furosemide [Lasix] 20 mg PO DAILY 01/13/20 [History] Levothyroxine [Synthroid] 125 mcg PO DAILY 01/13/20 [History] Almena-3 Fatty Acids [Almena-3] 1 cap PO DAILY 01/13/20 [History] Rivaroxaban [Xarelto] 20 mg PO DAILY 01/13/20 [History] Dorzolamide/Timolol/Pf [Dorzolamide-Timolol 2%-0.5%] 1 drop EYEBOTH BID 01/16/20 [History] Patient Handouts: Heart Failure Action Plan, COVID-19: How to Protect Yourself and Others - CDC, Prevent the Spread of COVID-19 if You Are Sick - CDC, Sepsis, Self Care, Adult Forms: ED Department Discharge Referrals: Cintia Rosales TECHNICAL INSTRUCTOR [Primary Care Provider] - - Discharge Summary/Plan Comment DC Time >30 min.: Yes - Patient Data Vitals - Most Recent: Last Vital Signs Temp 98.0 F 01/20/20 15:51 Pulse 81 01/20/20 04:00 Resp 18 01/20/20 15:51 BP 126/63 01/20/20 15:51 Pulse Ox 83 L 01/20/20 12:00 Weight - Most Recent: 184 lb 11.2 oz I&O - Last 24 hours: Intake & Output 01/20/20 01/20/20 01/20/20 06:59 14:59 22:59 Intake Total 1761 134 Output Total 195 210 Balance 1566 -76 Lab Results - Last 24 hrs: Laboratory Results - last 24 hr 01/19/20 01/19/20 01/19/20 Range/Units 22:10 22:40 23:14 WBC (3.98-10.04) K/mm3 RBC (3.98-5.22) M/mm3 Hgb (11.2-15.7) gm/dl Hct (34.1-44.9) % MCV (79.4-94.8) fl MCH (25.6-32.2) pg MCHC (32.2-35.5) g/dl RDW Std Deviation (36.4-46.3) fL Plt Count (182-369) K/mm3 MPV (9.4-12.3) fl Neut % (Auto) (34.0-71.1) % Lymph % (Auto) (19.3-51.7) % Gilchrist % (Auto) (4.7-12.5) % Eos % (Auto) (0.7-5.8) Baso % (Auto) (0.1-1.2) % Neut # (Auto) (1.56-6.13) K/mm3 Lymph # (Auto) (1.18-3.74) K/mm3 Gilchrist # (Auto) (0.24-0.36) K/mm3 Eos # (Auto) (0.04-0.36) K/mm3 Baso # (Auto) (0.01-0.08) K/mm3 Manual Slide Review APTT (21.7-31.4) SECONDS D-Dimer, Quantitative (0.19-0.50) mg/L Puncture Site Lt brachial ABG pH 7.34 L (7.35-7.45) ABG pCO2 31.1 L (35.0-45.0) mmHg ABG pO2 53.0 L (80.0-100.0) mmHg ABG HCO3 16.3 L (22.0-26.0) meq/L ABG O2 Saturation 80.6 L (96.0-97.0) % ABG Base Excess -8.0 L (-2-2.0) A-a Gradient 621 mmHg O2 Delivery Device Bipap FiO2 100.00 (21.00-100.00) % Blood Gas Comments Bipap 18/10 Sodium 137 (136-145) mEq/L Potassium 4.1 (3.5-5.1) mEq/L Chloride 103 (98-107) mEq/L Carbon Dioxide 21 (21-32) mEq/L Anion Gap 17.1 H (5-15) BUN 68 H (7-18) mg/dL Creatinine 2.2 H (0.55-1.02) mg/dL Est Cr Clr Drug Dosing 14.11 mL/min Estimated GFR (MDRD) 21 (>60) mL/min BUN/Creatinine Ratio 30.9 H (14-18) Glucose 156 H (83-115) mg/dL Lactic Acid 1.7 (0.4-2.0) mmol/L Calcium 10.1 (8.5-10.1) mg/dL Magnesium (1.8-2.4) mg/dl Total Bilirubin (0.2-1.0) mg/dL AST (15-37) U/L ALT (14-59) U/L Alkaline Phosphatase (46-116) U/L C-Reactive Protein (<1.0) mg/dL Total Protein (6.4-8.2) g/dl Albumin (3.4-5.0) g/dl Globulin gm/dL Albumin/Globulin Ratio (1-2) 01/20/20 01/20/20 01/20/20 Range/Units 06:03 06:03 06:03 WBC 13.28 H (3.98-10.04) K/mm3 RBC 3.68 L (3.98-5.22) M/mm3 Hgb 11.4 (11.2-15.7) gm/dl Hct 34.5 (34.1-44.9) % MCV 93.8 (79.4-94.8) fl MCH 31.0 (25.6-32.2) pg MCHC 33.0 (32.2-35.5) g/dl RDW Std Deviation 50.3 H (36.4-46.3) fL Plt Count 232 (182-369) K/mm3 MPV 11.2 (9.4-12.3) fl Neut % (Auto) 85.5 H (34.0-71.1) % Lymph % (Auto) 8.8 L (19.3-51.7) % Gilchrist % (Auto) 5.0 (4.7-12.5) % Eos % (Auto) 0.1 L (0.7-5.8) Baso % (Auto) 0.1 (0.1-1.2) % Neut # (Auto) 11.36 H (1.56-6.13) K/mm3 Lymph # (Auto) 1.17 L (1.18-3.74) K/mm3 Gilchrist # (Auto) 0.67 H (0.24-0.36) K/mm3 Eos # (Auto) 0.01 L (0.04-0.36) K/mm3 Baso # (Auto) 0.01 (0.01-0.08) K/mm3 Manual Slide Review Abnormal smear APTT (21.7-31.4) SECONDS D-Dimer, Quantitative > 35.20 H (0.19-0.50) mg/L Puncture Site ABG pH (7.35-7.45) ABG pCO2 (35.0-45.0) mmHg ABG pO2 (80.0-100.0) mmHg ABG HCO3 (22.0-26.0) meq/L ABG O2 Saturation (96.0-97.0) % ABG Base Excess (-2-2.0) A-a Gradient mmHg O2 Delivery Device FiO2 (21.00-100.00) % Blood Gas Comments Sodium 138 (136-145) mEq/L Potassium 4.0 (3.5-5.1) mEq/L Chloride 106 (98-107) mEq/L Carbon Dioxide 17 L (21-32) mEq/L Anion Gap 19.0 H (5-15) BUN 68 H (7-18) mg/dL Creatinine 1.9 H (0.55-1.02) mg/dL Est Cr Clr Drug Dosing 16.33 mL/min Estimated GFR (MDRD) 25 (>60) mL/min BUN/Creatinine Ratio 35.8 H (14-18) Glucose 108 (83-115) mg/dL Lactic Acid (0.4-2.0) mmol/L Calcium 10.0 (8.5-10.1) mg/dL Magnesium 2.0 (1.8-2.4) mg/dl Total Bilirubin 0.4 (0.2-1.0) mg/dL AST 44 H (15-37) U/L ALT 50 (14-59) U/L Alkaline Phosphatase 175 H (46-116) U/L C-Reactive Protein 35.0 H* (<1.0) mg/dL Total Protein 6.0 L (6.4-8.2) g/dl Albumin 2.0 L (3.4-5.0) g/dl Globulin 4.0 gm/dL Albumin/Globulin Ratio 0.5 L (1-2) 01/20/20 01/20/20 Range/Units 06:03 16:35 WBC (3.98-10.04) K/mm3 RBC (3.98-5.22) M/mm3 Hgb (11.2-15.7) gm/dl Hct (34.1-44.9) % MCV (79.4-94.8) fl MCH (25.6-32.2) pg MCHC (32.2-35.5) g/dl RDW Std Deviation (36.4-46.3) fL Plt Count (182-369) K/mm3 MPV (9.4-12.3) fl Neut % (Auto) (34.0-71.1) % Lymph % (Auto) (19.3-51.7) % Gilchrist % (Auto) (4.7-12.5) % Eos % (Auto) (0.7-5.8) Baso % (Auto) (0.1-1.2) % Neut # (Auto) (1.56-6.13) K/mm3 Lymph # (Auto) (1.18-3.74) K/mm3 Gilchrist # (Auto) (0.24-0.36) K/mm3 Eos # (Auto) (0.04-0.36) K/mm3 Baso # (Auto) (0.01-0.08) K/mm3 Manual Slide Review APTT 37.9 H > 139.0 H* D (21.7-31.4) SECONDS D-Dimer, Quantitative (0.19-0.50) mg/L Puncture Site ABG pH (7.35-7.45) ABG pCO2 (35.0-45.0) mmHg ABG pO2 (80.0-100.0) mmHg ABG HCO3 (22.0-26.0) meq/L ABG O2 Saturation (96.0-97.0) % ABG Base Excess (-2-2.0) A-a Gradient mmHg O2 Delivery Device FiO2 (21.00-100.00) % Blood Gas Comments Sodium (136-145) mEq/L Potassium (3.5-5.1) mEq/L Chloride (98-107) mEq/L Carbon Dioxide (21-32) mEq/L Anion Gap (5-15) BUN (7-18) mg/dL Creatinine (0.55-1.02) mg/dL Est Cr Clr Drug Dosing mL/min Estimated GFR (MDRD) (>60) mL/min BUN/Creatinine Ratio (14-18) Glucose (83-115) mg/dL Lactic Acid (0.4-2.0) mmol/L Calcium (8.5-10.1) mg/dL Magnesium (1.8-2.4) mg/dl Total Bilirubin (0.2-1.0) mg/dL AST (15-37) U/L ALT (14-59) U/L Alkaline Phosphatase (46-116) U/L C-Reactive Protein (<1.0) mg/dL Total Protein (6.4-8.2) g/dl Albumin (3.4-5.0) g/dl Globulin gm/dL Albumin/Globulin Ratio (1-2) Med Orders - Current: Current Medications Acetaminophen (Tylenol) 650 mg RECTAL Q4H PRN PRN Reason: Pain/Fever Dorzolamide/Timolol (Cosopt 2%-0.5% Ophth Soln) 0 ml EYEBOTH BID [facility] Last Admin: 01/19/20 21:19 Dose: 1 drop Documented by: Folic Acid (Folic Acid) 1 mg IV DAILY [facility] Last Admin: 01/20/20 10:07 Dose: 1 mg Documented by: Hydralazine HCl (Apresoline) 10 mg IVPUSH Q4H PRN PRN Reason: Hypertension Sodium Chloride (Normal Saline) 1,000 mls @ 100 mls/hr IV ASDIRECTED [facility] Last Admin: 01/20/20 02:11 Dose: 100 mls/hr Documented by: Cefepime HCl 1 gm/ Premix 50 mls @ 100 mls/hr IV Q24H [facility] Last Admin: 01/19/20 23:37 Dose: 100 mls/hr Documented by: Heparin Sodium/Dextrose (Heparin 25,000 Units In D5w 500 Ml) 25,000 units in 500 mls @ 25.971 mls/hr IV TITRATE [facility]; Protocol Last Admin: 01/20/20 10:14 Dose: 15.5 units/kg/hr, 25.971 mls/hr Documented by: Levofloxacin/Dextrose 500 mg/ (Premix) 100 mls @ 100 mls/hr IV Q48H [facility] Latanoprost (Xalatan 0.005% Ophth Soln) 0 ml EYEBOTH BEDTIME [facility] Last Admin: 01/19/20 21:18 Dose: 1 drop Documented by: Lorazepam (Ativan) 0.5 mg IVPUSH Q1H PRN PRN Reason: Anxiety Last Admin: 01/20/20 18:33 Dose: 0.5 mg Documented by: Metoprolol Tartrate (Lopressor) 5 mg IVPUSH Q4H PRN PRN Reason: Tachycardia Morphine Sulfate (Morphine) 2 mg IVPUSH Q2H PRN PRN Reason: Pain Last Admin: 01/20/20 13:10 Dose: 2 mg Documented by: Morphine Sulfate (Morphine) 4 mg IVPUSH Q2H PRN PRN Reason: Dyspnea Last Admin: 01/20/20 18:16 Dose: 4 mg Documented by: Brinzolamide/Brimonidine Tart [ Simbrinza 1%-0.2% Eye Drop 0 each EYEBOTH BID [facility] Last Admin: 01/19/20 22:38 Dose: Not Given Documented by: Sodium Chloride (Saline Flush) 10 ml FLUSH ASDIRECTED PRN PRN Reason: Keep Vein Open Last Admin: 01/18/20 20:16 Dose: 10 ml Documented by: Vancomycin HCl (Pharmacy To Dose - Vancomycin) 1 dose .XX ASDIRECTED PRN PRN Reason: RX TO DOSE VANCO Discontinued Medications Acetaminophen (Tylenol) 650 mg PO Q4H PRN PRN Reason: Fever Last Admin: 01/19/20 09:43 Dose: 650 mg Documented by: Aspirin (Halfprin) 81 mg PO DAILY [facility] Last Admin: 01/19/20 09:45 Dose: 81 mg Documented by: Cholecalciferol (Vitamin D3) 25 mcg PO DAILY [facility] Last Admin: 01/19/20 09:44 Dose: 25 mcg Documented by: Cyanocobalamin (Vitamin B12) 1,000 mcg PO DAILY [facility] Last Admin: 01/19/20 09:43 Dose: 1,000 mcg Documented by: Dexamethasone (Decadron) 6 mg IVPUSH ONETIME ONE Stop: 01/16/20 09:38 Last Admin: 01/16/20 10:17 Dose: 6 mg Documented by: Dexamethasone (Dexamethasone) 6 mg PO DAILY [facility] Stop: 01/25/20 09:01 Last Admin: 01/19/20 09:48 Dose: 6 mg Documented by: Folic Acid (Folic Acid) 0.5 mg PO DAILY [facility] Last Admin: 01/19/20 09:44 Dose: 0.5 mg Documented by: Furosemide (Lasix) 40 mg IVPUSH ONETIME ONE Stop: 01/16/20 10:27 Last Admin: 01/16/20 15:58 Dose: Not Given Documented by: Furosemide (Lasix) 40 mg IVPUSH ONETIME ONE Stop: 01/16/20 15:01 Last Admin: 01/16/20 15:56 Dose: 40 mg Documented by: Furosemide (Lasix) 40 mg IVPUSH BID [facility] Last Admin: 01/17/20 08:29 Dose: 40 mg Documented by: Furosemide (Lasix) 20 mg IVPUSH BID [facility] Last Admin: 01/18/20 20:12 Dose: 20 mg Documented by: Furosemide (Lasix) 20 mg IVPUSH NOW ONE Stop: 01/17/20 17:37 Last Admin: 01/17/20 17:49 Dose: 20 mg Documented by: Furosemide (Lasix) Confirm Administered Dose 20 mg .ROUTE .STK-MED ONE Stop: 01/17/20 17:42 Last Admin: 01/17/20 17:49 Dose: Not Given Documented by: Furosemide (Lasix) 20 mg IVPUSH DAILY LEEANN Furosemide (Lasix) 20 mg IVPUSH DAILY [facility] Heparin Sodium (Porcine) (Heparin Sodium) 5,000 units IVPUSH .BOLUS ONE; Protocol Stop: 01/20/20 09:31 Last Admin: 01/20/20 10:08 Dose: 5,000 units Documented by: Hydromorphone HCl (Dilaudid) 0.25 mg IVPUSH Q6H PRN PRN Reason: Pain Last Admin: 01/19/20 11:03 Dose: 0.25 mg Documented by: Remdesivir 200 mg/ Sodium (Chloride) 250 mls @ 250 mls/hr IV ONETIME ONE Stop: 01/16/20 10:13 Last Admin: 01/16/20 12:12 Dose: 250 mls/hr Documented by: Remdesivir 100 mg/ Sodium (Chloride) 100 mls @ 100 mls/hr IV Q24H [facility] Stop: 01/20/20 11:59 Azithromycin 500 mg/ Sodium (Chloride) 250 mls @ 250 mls/hr IV Q24H [facility] Stop: 01/18/20 11:29 Last Admin: 01/16/20 17:40 Dose: Not Given Documented by: Ceftriaxone Sodium 2 gm/ (Sodium Chloride) 100 mls @ 200 mls/hr IV Q24H [facility] Stop: 01/20/20 10:59 Last Admin: 01/16/20 17:40 Dose: Not Given Documented by: Remdesivir 200 mg/ Sodium (Chloride) 250 mls @ 250 mls/hr IV ONETIME ONE Stop: 01/16/20 11:59 Last Admin: 01/16/20 15:58 Dose: Not Given Documented by: Ceftriaxone Sodium 2 gm/ (Sodium Chloride) 100 mls @ 200 mls/hr IV Q24H [facility] Stop: 01/20/20 17:29 Azithromycin 500 mg/ Sodium (Chloride) 250 mls @ 250 mls/hr IV Q24H [facility] Stop: 01/18/20 15:29 Last Admin: 01/18/20 14:52 Dose: 250 mls/hr Documented by: Ceftriaxone Sodium 2 gm/ (Sodium Chloride) 100 mls @ 200 mls/hr IV Q24H [facility] Stop: 01/20/20 14:29 Last Admin: 01/16/20 17:40 Dose: Not Given Documented by: Remdesivir 200 mg/ Sodium (Chloride) 250 mls @ 250 mls/hr IV ONETIME ONE Stop: 01/16/20 16:59 Last Admin: 01/16/20 17:40 Dose: Not Given Documented by: Remdesivir 100 mg/ Sodium (Chloride) 100 mls @ 100 mls/hr IV Q24H [facility] Stop: 01/20/20 16:59 Last Admin: 01/20/20 16:00 Dose: 100 mls/hr Documented by: Ceftriaxone Sodium 2 gm/ (Sodium Chloride) 100 mls @ 200 mls/hr IV Q24H [facility] Stop: 01/20/20 15:29 Last Admin: 01/19/20 15:12 Dose: 200 mls/hr Documented by: Sodium Chloride (Normal Saline) 250 mls @ 50 mls/hr IV ASDIRECTED [facility] Stop: 01/17/20 18:45 Sodium Chloride (Normal Saline) Confirm Administered Dose 250 mls @ as directed .ROUTE .ST-MED ONE Stop: 01/17/20 13:49 Last Admin: 01/17/20 15:21 Dose: 50 mls/hr Documented by: Magnesium Sulfate/Dextrose (Magnesium Sulfate In D5w 100 Premix) 1 gm in 100 mls @ 100 mls/hr IV ONETIME ONE Stop: 01/17/20 21:09 Last Admin: 01/17/20 22:22 Dose: 100 mls/hr Documented by: Sodium Chloride (Normal Saline) Confirm Administered Dose 100 mls @ as directed .ROUTE .STK-MED ONE Stop: 01/17/20 20:47 Last Admin: 01/18/20 03:38 Dose: Not Given Documented by: Sodium Chloride (Normal Saline) 100 mls @ 100 mls/hr IV ONETIME ONE Stop: 01/17/20 21:53 Last Admin: 01/18/20 17:19 Dose: Not Given Documented by: Sodium Chloride (Normal Saline) 1,000 mls @ 999 mls/hr IV ONETIME ONE Stop: 01/19/20 06:05 Last Infusion: 01/19/20 06:00 Dose: 100 mls/hr Documented by: Sodium Chloride (Normal Saline) 500 mls @ 500 mls/hr IV .BOLUS ONE Stop: 01/19/20 12:30 Last Admin: 01/19/20 12:24 Dose: 500 mls/hr Documented by: Levofloxacin/Dextrose 750 mg/ (Premix) 150 mls @ 100 mls/hr IV ONETIME ONE Stop: 01/19/20 22:55 Last Admin: 01/19/20 22:06 Dose: 100 mls/hr Documented by: Vancomycin HCl 1.75 gm/ Sodium (Chloride) 500 mls @ 250 mls/hr IV ONETIME ONE Stop: 01/20/20 01:29 Last Admin: 01/20/20 00:37 Dose: 250 mls/hr Documented by: Levothyroxine Sodium (Levothyroxine) 125 mcg PO ACBREAKFAST [facility] Last Admin: 01/19/20 05:35 Dose: 125 mcg Documented by: Lorazepam (Ativan) 1 mg PO Q2H PRN PRN Reason: Anxiety Last Admin: 01/16/20 20:37 Dose: 1 mg Documented by: Lorazepam (Ativan) 0.25 mg IVPUSH ONETIME ONE Stop: 01/18/20 13:31 Last Admin: 01/18/20 14:52 Dose: 0.25 mg Documented by: Lorazepam (Ativan) 0.5 mg PO Q4H PRN PRN Reason: Anxiety Lorazepam (Ativan) 0.25 mg IVPUSH Q4H PRN PRN Reason: Anxiety Last Admin: 01/20/20 15:58 Dose: 0.25 mg Documented by: Losartan Potassium (Cozaar) 100 mg PO DAILY [facility] Last Admin: 01/18/20 09:29 Dose: 100 mg Documented by: Losartan Potassium (Cozaar) 100 mg PO DAILY [facility] Metoprolol Succinate (Toprol Xl) 50 mg PO DAILY [facility] Last Admin: 01/19/20 09:47 Dose: 50 mg Documented by: Metoprolol Tartrate (Lopressor) 25 mg PO ONETIME ONE Stop: 01/16/20 21:07 Last Admin: 01/16/20 21:21 Dose: 25 mg Documented by: Non-Formulary Medication (Brinzolamide/Brimonidine Tart [Simbrinza 1%-0.2% Eye Drops]) 1 drop EYEBOTH BID [facility] Non-Formulary Medication (Folic Acid) 400 mcg PO DAILY [facility] Oxycodone HCl (Oxycodone) 5 mg PO Q4H PRN PRN Reason: Pain Last Admin: 01/18/20 17:59 Dose: 5 mg Documented by: Potassium Chloride (Klor-Con M20) 60 meq PO ONETIME ONE Stop: 01/17/20 09:15 Last Admin: 01/17/20 09:54 Dose: 60 meq Documented by: Quetiapine Fumarate (Seroquel) 12.5 mg PO BID [facility] Last Admin: 01/18/20 20:13 Dose: 12.5 mg Documented by: Quetiapine Fumarate (Seroquel) 12.5 mg PO BID PRN PRN Reason: Restlessness Last Admin: 01/19/20 18:56 Dose: 12.5 mg Documented by: Rivaroxaban (Xarelto) 20 mg PO WITHBREAKFAST [facility] Rivaroxaban (Xarelto) 20 mg PO DAILY [facility] Last Admin: 01/20/20 08:29 Dose: Not Given Documented by: Simvastatin (Zocor) 40 mg PO BEDTIME [facility] Last Admin: 01/19/20 21:20 Dose: 40 mg Documented by: Zinc Sulfate (Zincate) 220 mg PO DAILY [facility] Last Admin: 01/19/20 09:44 Dose: 220 mg Documented by:
[2020-01-21] MEDS ORDERED: Losartan 100 MG Tab PO SCH (09:00)
[2020-01-21] MEDS ORDERED: Levofloxacin/Dextrose 5%-Water 500 MG in Premix Bag 1 BAG IV SCH (22:00)
== END 2020-01-20 20:30 | disposition expired | DRG 177 ==
LOC: JD.ED 07:24 → JD.MS 10:28 → JD.ICU 18:44
PROVIDERS: ADMIT Family Medicine; ATTEND Family Medicine
PROC: 8E0ZXY6 Isolation (ICD-10-PCS; principal; 2020-01-16)
PROC: 5A0945A Assistance with Respiratory Ventilation, 24-96 Consecutive Hours, High Flow/Velocity Cannula (ICD-10-PCS; 2020-01-17)
PROC: 5A09357 Assistance with Respiratory Ventilation, Less than 24 Consecutive Hours, Continuous Positive Airway Pressure (ICD-10-PCS; 2020-01-17)
DX: U07.1 COVID-19 (principal); J12.89 Other viral pneumonia; J96.01 Acute respiratory failure with hypoxia; I26.99 Other pulmonary embolism without acute cor pulmonale; I50.43 Acute on chronic combined systolic (congestive) and diastolic (congestive) heart failure; I69.354 Hemiplegia and hemiparesis following cerebral infarction affecting left non-dominant side; D84.9 Immunodeficiency, unspecified; N17.9 Acute kidney failure, unspecified; I13.0 Hypertensive heart and chronic kidney disease with heart failure and stage 1 through stage 4 chronic kidney disease, or unspecified chronic kidney disease; E87.1 Hypo-osmolality and hyponatremia; E78.00 Pure hypercholesterolemia, unspecified; E87.2 Acidosis; Z51.5 Encounter for palliative care; Z66 Do not resuscitate; H40.9 Unspecified glaucoma; H35.30 Unspecified macular degeneration; I65.29 Occlusion and stenosis of unspecified carotid artery; I11.0 Hypertensive heart disease with heart failure; H93.19 Tinnitus, unspecified ear; I25.10 Atherosclerotic heart disease of native coronary artery without angina pectoris; E78.5 Hyperlipidemia, unspecified; I77.9 Disorder of arteries and arterioles, unspecified; H61.20 Impacted cerumen, unspecified ear; K21.9 Gastro-esophageal reflux disease without esophagitis; E83.42 Hypomagnesemia; K22.70 Barrett's esophagus without dysplasia; E87.6 Hypokalemia; N18.9 Chronic kidney disease, unspecified; H54.7 Unspecified visual loss; L82.1 Other seborrheic keratosis; M19.90 Unspecified osteoarthritis, unspecified site; E03.9 Hypothyroidism, unspecified; M06.9 Rheumatoid arthritis, unspecified; R77.8 Other specified abnormalities of plasma proteins; Z95.0 Presence of cardiac pacemaker; Z86.718 Personal history of other venous thrombosis and embolism; Z79.01 Long term (current) use of anticoagulants; Z79.890 Hormone replacement therapy; Z85.038 Personal history of other malignant neoplasm of large intestine; Z79.52 Long term (current) use of systemic steroids; Z79.82 Long term (current) use of aspirin; Z79.899 Other long term (current) drug therapy; Z98.49 Cataract extraction status, unspecified eye; Z98.51 Tubal ligation status; Z98.890 Other specified postprocedural states; Z90.49 Acquired absence of other specified parts of digestive tract; Z86.19 Personal history of other infectious and parasitic diseases; Z99.81 Dependence on supplemental oxygen
CPT/HCPCS: 36415; 36430; 36600; 51702; 71045; 71045-26; 80048; 80053; 82306; 82553; 82728; 82803; 83605; 83615; 83735; 83880; 84100; 84145; 84443; 84484; 85025; 85379; 85730; 86140; 86900; 86901; 93005; 93010; 93306; 94660; 96374; 99285; 99285-25; A9270-GY; J0456; J0692; J0696; J1100; J1170; J1644; J1940; J1956; J2060; J2270; J3370; J3475; J7030; J7040; J7050; J8540; P9017